=== PATIENT | female | born 1965 | race American Indian/Alaskan Native ===

== ENCOUNTER 2021-06-21 13:17 | Inpatient (IN) | payer SELFPAY ==
[2021-06-21] MEDS ORDERED: SODIUM CHLORIDE 0.9% 1000 ML 1,000 ML IV ONE (13:32)
--- NOTE | 2021-06-21 13:36 | Emergency Department Report ---
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 According to the EMS report patient was last time seen normal on Monday, 2 days ago. EMS stated that patient was found unresponsive with urinary and fecal incontinence. Upon arrival to the ER patient is obtunded and only responding to painful stimuli. Patient is maintaining her oxygen saturation to 100% on room air. Unable to obtain more information at this moment. MD Complaint: altered mental status, confusion, decreased responsiveness, weakness -: unknown Severity: severe Context: unknown Treatments Prior to Arrival: IV fluid - Related Data Home Medications Medication Instructions Recorded Confirmed Last Taken Aspirin [Vazalore] 06/21/21 Unknown Clopidogrel [Plavix] 06/21/21 Unknown Losartan 06/21/21 Unknown Metoprolol [Lopressor TAB] 06/21/21 Unknown Allergies Allergy/AdvReac Type Severity Reaction Status Date / Time No Known Allergies Allergy Unverified 06/21/21 13:19 ED Review of Systems ROS: Stated complaint: altered Mental status Other details as noted in HPI Comment: Unobtainable due to pts medical conditions ED Past Medical Hx - Past Medical History Previous Medical History?: Yes Hx Hypertension: Yes - Medications Home Medications: Home Medications Medication Instructions Recorded Confirmed Last Taken Type Aspirin [Vazalore] 06/21/21 Unknown History Clopidogrel [Plavix] 06/21/21 Unknown History Losartan 06/21/21 Unknown History Metoprolol [Lopressor TAB] 06/21/21 Unknown History ED Physical Exam - General Limitations: Altered Mental Status General appearance: obtunded - Head Head exam: Present: atraumatic, normocephalic, normal inspection - Eye Eye exam: Present: normal appearance - ENT ENT exam: Present: mucous membranes dry - Neck Neck exam: Present: normal inspection - Respiratory Respiratory exam: Present: normal lung sounds bilaterally - Cardiovascular Cardiovascular Exam: Present: bradycardia - GI/Abdominal GI/Abdominal exam: Present: soft. Absent: tenderness, guarding, pulsatile mass - Extremities Exam Extremities exam: Present: normal inspection - Neurological Exam Neurological exam: Present: altered - Psychiatric Psychiatric exam: Present: flat affect - Skin Skin exam: Present: warm, intact, normal color - Assessment Assessment Interval: Baseline - Level of Consciousness 1a. Level of Consciousness: resp stimuli/obtunded - LOC Questions 1b. LOC Questions: answers no questions correctly - LOC Command 1c. LOC Commands: performs no tasks correctly - Best Gaze 2. Best Gaze: normal - Visual 3. Visual: no visual loss - Facial Palsy 4. Facial Palsy: normal symmetrical movement - Motor Arm 5a. Motor Arm Left: drift 5b. Motor Arm Right: drift - Motor Leg 6a. Motor Leg Left: drift 6b. Motor Leg Right: drift - Limb Ataxia 7. Limb Ataxia: absent - Sensory 8. Sensory: coma/unresponsive - Best Language 9. Best Language: coma/unresponsive - Dysarthria 10. Dysarthria: mute/anarrthric - Extinction and Inattention 11. Extinction/Inattention: no abnormality - Scoring Total Score: 17 Stroke Severity: Moderate to Severe Stroke ED Course Vital Signs 06/21/21 06/21/21 06/21/21 13:18 13:19 13:39 Pulse Rate 64 Respiratory 18 12 Rate Blood Pressure Blood Pressure 201/87 [Left] O2 Sat by Pulse 97 99 Oximetry 06/21/21 06/21/21 06/21/21 13:45 14:41 14:45 Pulse Rate 47 L Respiratory 16 11 L 17 Rate Blood Pressure 110/86 110/86 110/86 Blood Pressure [Left] O2 Sat by Pulse 85 Oximetry 06/21/21 06/21/21 06/21/21 15:01 15:15 15:31 Pulse Rate 49 L 59 L Respiratory 13 10 L 20 Rate Blood Pressure 144/90 144/90 188/91 Blood Pressure [Left] O2 Sat by Pulse 98 97 78 L Oximetry 06/21/21 06/21/21 15:45 16:01 Pulse Rate Respiratory 19 12 Rate Blood Pressure 188/91 204/157 Blood Pressure [Left] O2 Sat by Pulse 89 Oximetry - Lab Data Result diagrams: 06/21/21 14:45 06/21/21 14:45 Lab Results 06/21/21 06/21/21 06/21/21 Range/Units 14:45 14:45 14:45 WBC 11.2 H (4.5-11.0) K/mm3 RBC 4.65 (3.65-5.03) M/mm3 Hgb 14.4 H (10.1-14.3) gm/dl Hct 44.3 H (30.3-42.9) % MCV 95 (79-97) fl MCH 31 (28-32) pg MCHC 32 (30-34) % RDW 13.8 (13.2-15.2) % Plt Count 342 (140-440) K/mm3 Lymph % (Auto) 23.5 (13.4-35.0) % Coos % (Auto) 6.8 (0.0-7.3) % Eos % (Auto) 0.4 (0.0-4.3) % Baso % (Auto) 0.7 (0.0-1.8) % Lymph # (Auto) 2.6 (1.2-5.4) K/mm3 Coos # (Auto) 0.8 (0.0-0.8) K/mm3 Eos # (Auto) 0.0 (0.0-0.4) K/mm3 Baso # (Auto) 0.1 (0.0-0.1) K/mm3 Seg Neutrophils % 68.6 (40.0-70.0) % Seg Neutrophils # 7.7 (1.8-7.7) K/mm3 PT 12.7 (12.2-14.9) Sec. INR 0.86 L (0.87-1.13) APTT 24.1 L (24.2-36.6) Sec. Sodium (137-145) mmol/L Potassium (3.6-5.0) mmol/L Chloride (98-107) mmol/L Carbon Dioxide (22-30) mmol/L Anion Gap mmol/L BUN (7-17) mg/dL Creatinine (0.6-1.2) mg/dL Estimated GFR ml/min BUN/Creatinine Ratio % Glucose (65-100) mg/dL Lactic Acid (0.7-2.0) mmol/L Calcium (8.4-10.2) mg/dL Total Bilirubin (0.1-1.2) mg/dL Direct Bilirubin (0-0.2) mg/dL Indirect Bilirubin mg/dL AST (5-40) units/L ALT (7-56) units/L Alkaline Phosphatase (35-129) units/L Ammonia (25-60) umol/L Total Creatine Kinase (30-135) units/L Troponin T TNR Total Protein (6.3-8.2) g/dL Albumin (3.9-5) g/dL Albumin/Globulin Ratio % Triglycerides (2-149) mg/dL Cholesterol (50-199) mg/dL LDL Cholesterol Direct (50-130) mg/dL HDL Cholesterol (40-59) mg/dL Cholesterol/HDL Ratio % TSH (0.270-4.200) mlU/mL Salicylates (2.8-20.0) mg/dL Acetaminophen (10.0-30.0) ug/mL Plasma/Serum Alcohol (0-0.07) % 06/21/21 06/21/21 06/21/21 Range/Units 14:45 14:45 14:45 WBC (4.5-11.0) K/mm3 RBC (3.65-5.03) M/mm3 Hgb (10.1-14.3) gm/dl Hct (30.3-42.9) % MCV (79-97) fl MCH (28-32) pg MCHC (30-34) % RDW (13.2-15.2) % Plt Count (140-440) K/mm3 Lymph % (Auto) (13.4-35.0) % Coos % (Auto) (0.0-7.3) % Eos % (Auto) (0.0-4.3) % Baso % (Auto) (0.0-1.8) % Lymph # (Auto) (1.2-5.4) K/mm3 Coos # (Auto) (0.0-0.8) K/mm3 Eos # (Auto) (0.0-0.4) K/mm3 Baso # (Auto) (0.0-0.1) K/mm3 Seg Neutrophils % (40.0-70.0) % Seg Neutrophils # (1.8-7.7) K/mm3 PT (12.2-14.9) Sec. INR (0.87-1.13) APTT (24.2-36.6) Sec. Sodium 138 (137-145) mmol/L Potassium 3.8 (3.6-5.0) mmol/L Chloride 99.5 (98-107) mmol/L Carbon Dioxide 24 (22-30) mmol/L Anion Gap 18 mmol/L BUN 12 (7-17) mg/dL Creatinine 0.8 (0.6-1.2) mg/dL Estimated GFR > 60 ml/min BUN/Creatinine Ratio 15 % Glucose 203 H (65-100) mg/dL Lactic Acid < 0.20 L (0.7-2.0) mmol/L Calcium 9.2 (8.4-10.2) mg/dL Total Bilirubin 0.50 (0.1-1.2) mg/dL Direct Bilirubin < 0.2 (0-0.2) mg/dL Indirect Bilirubin 0.3 mg/dL AST 21 (5-40) units/L ALT 20 (7-56) units/L Alkaline Phosphatase 135 H (35-129) units/L Ammonia 19.0 L (25-60) umol/L Total Creatine Kinase 173 H (30-135) units/L Troponin T 0.311 H* Total Protein 7.6 (6.3-8.2) g/dL Albumin 4.1 (3.9-5) g/dL Albumin/Globulin Ratio 1.2 % Triglycerides 95 (2-149) mg/dL Cholesterol 286 H (50-199) mg/dL LDL Cholesterol Direct 178 H (50-130) mg/dL HDL Cholesterol 83 H (40-59) mg/dL Cholesterol/HDL Ratio 3.44 % TSH (0.270-4.200) mlU/mL Salicylates (2.8-20.0) mg/dL Acetaminophen (10.0-30.0) ug/mL Plasma/Serum Alcohol (0-0.07) % 06/21/21 06/21/21 06/21/21 Range/Units 14:45 14:45 14:45 WBC (4.5-11.0) K/mm3 RBC (3.65-5.03) M/mm3 Hgb (10.1-14.3) gm/dl Hct (30.3-42.9) % MCV (79-97) fl MCH (28-32) pg MCHC (30-34) % RDW (13.2-15.2) % Plt Count (140-440) K/mm3 Lymph % (Auto) (13.4-35.0) % Coos % (Auto) (0.0-7.3) % Eos % (Auto) (0.0-4.3) % Baso % (Auto) (0.0-1.8) % Lymph # (Auto) (1.2-5.4) K/mm3 Coos # (Auto) (0.0-0.8) K/mm3 Eos # (Auto) (0.0-0.4) K/mm3 Baso # (Auto) (0.0-0.1) K/mm3 Seg Neutrophils % (40.0-70.0) % Seg Neutrophils # (1.8-7.7) K/mm3 PT (12.2-14.9) Sec. INR (0.87-1.13) APTT (24.2-36.6) Sec. Sodium (137-145) mmol/L Potassium (3.6-5.0) mmol/L Chloride (98-107) mmol/L Carbon Dioxide (22-30) mmol/L Anion Gap mmol/L BUN (7-17) mg/dL Creatinine (0.6-1.2) mg/dL Estimated GFR ml/min BUN/Creatinine Ratio % Glucose (65-100) mg/dL Lactic Acid (0.7-2.0) mmol/L Calcium (8.4-10.2) mg/dL Total Bilirubin (0.1-1.2) mg/dL Direct Bilirubin (0-0.2) mg/dL Indirect Bilirubin mg/dL AST (5-40) units/L ALT (7-56) units/L Alkaline Phosphatase (35-129) units/L Ammonia (25-60) umol/L Total Creatine Kinase (30-135) units/L Troponin T Total Protein (6.3-8.2) g/dL Albumin (3.9-5) g/dL Albumin/Globulin Ratio % Triglycerides (2-149) mg/dL Cholesterol (50-199) mg/dL LDL Cholesterol Direct (50-130) mg/dL HDL Cholesterol (40-59) mg/dL Cholesterol/HDL Ratio % TSH 0.326 (0.270-4.200) mlU/mL Salicylates < 0.3 L (2.8-20.0) mg/dL Acetaminophen 5.0 L (10.0-30.0) ug/mL Plasma/Serum Alcohol (0-0.07) % 06/21/21 Range/Units 14:45 WBC (4.5-11.0) K/mm3 RBC (3.65-5.03) M/mm3 Hgb (10.1-14.3) gm/dl Hct (30.3-42.9) % MCV (79-97) fl MCH (28-32) pg MCHC (30-34) % RDW (13.2-15.2) % Plt Count (140-440) K/mm3 Lymph % (Auto) (13.4-35.0) % Coos % (Auto) (0.0-7.3) % Eos % (Auto) (0.0-4.3) % Baso % (Auto) (0.0-1.8) % Lymph # (Auto) (1.2-5.4) K/mm3 Coos # (Auto) (0.0-0.8) K/mm3 Eos # (Auto) (0.0-0.4) K/mm3 Baso # (Auto) (0.0-0.1) K/mm3 Seg Neutrophils % (40.0-70.0) % Seg Neutrophils # (1.8-7.7) K/mm3 PT (12.2-14.9) Sec. INR (0.87-1.13) APTT (24.2-36.6) Sec. Sodium (137-145) mmol/L Potassium (3.6-5.0) mmol/L Chloride (98-107) mmol/L Carbon Dioxide (22-30) mmol/L Anion Gap mmol/L BUN (7-17) mg/dL Creatinine (0.6-1.2) mg/dL Estimated GFR ml/min BUN/Creatinine Ratio % Glucose (65-100) mg/dL Lactic Acid (0.7-2.0) mmol/L Calcium (8.4-10.2) mg/dL Total Bilirubin (0.1-1.2) mg/dL Direct Bilirubin (0-0.2) mg/dL Indirect Bilirubin mg/dL AST (5-40) units/L ALT (7-56) units/L Alkaline Phosphatase (35-129) units/L Ammonia (25-60) umol/L Total Creatine Kinase (30-135) units/L Troponin T Total Protein (6.3-8.2) g/dL Albumin (3.9-5) g/dL Albumin/Globulin Ratio % Triglycerides (2-149) mg/dL Cholesterol (50-199) mg/dL LDL Cholesterol Direct (50-130) mg/dL HDL Cholesterol (40-59) mg/dL Cholesterol/HDL Ratio % TSH (0.270-4.200) mlU/mL Salicylates (2.8-20.0) mg/dL Acetaminophen (10.0-30.0) ug/mL Plasma/Serum Alcohol < 0.01 (0-0.07) % - Radiology Data Radiology results: report reviewed CT head/brain wo con INDICATION: Altered Mental Status. TECHNIQUE: All CT scans at this location are performed using CT dose reduction for ALARA by means of automated exposure control. COMPARISON: None available. FINDINGS: There is abnormal hypoattenuation and the region of the medial thalamus bilaterally. Remaining brain parenchymal appearance appears grossly normal. There is no hydrocephalus or hemorrhage. There is mild mucosal thickening in the left maxillary sinus. IMPRESSION: 1. Bilateral anteromedial thalamus hypoattenuation. Differential considerations for this appearance would include bilateral thalamic infarcts, Wernicke's encephalopathy, osmotic myelinolysis, and bilateral thalamic glioma. Further evaluation with MRI of the brain without and with contrast recommended. 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 According to the EMS report patient was last time seen normal on Monday, 2 days ago. EMS stated that patient was found unresponsive with urinary and fecal incontinence. Upon arrival to the ER patient is obtunded and only responding to painful stimuli. Patient is maintaining her oxygen saturation to 100% on room air. Unable to obtain more information at this moment. CT brain showed bilateral thalamic infarct. Labs reviewed and is unremarkable. I discussed the patient with Dr. Bridges, he agreed to admit the patient to medical service for further management. Critical Care Time: Yes Critical care time in (mins) excluding proc time.: 35 Critical care attestation.: If time is entered above; I have spent that time in minutes in the direct care of this critically ill patient, excluding procedure time. ED Disposition Clinical Impression: CVA (cerebral vascular accident) Disposition: 09 ADMITTED INPATIENT Is pt being admited?: Yes Condition: Serious Referrals: PRIMARY CARE,MD [Primary Care Provider] - 3-5 Days
[2021-06-21 15:04] LABS: Basophils # (Auto) 0.1 K/mm3 (0.0-0.1); Basophils % (Auto) 0.7 % (0.0-1.8); Eosinophils % (Auto) 0.4 % (0.0-4.3); Hematocrit 44.3 % (30.3-42.9); Hemoglobin 14.4 gm/dl (10.1-14.3); Lymphocytes # (Auto) 2.6 K/mm3 (1.2-5.4); Lymphocytes % (Auto) 23.5 % (13.4-35.0); Mean Corpuscular HGB Conc 32 % (30-34); Mean Corpuscular Volume 95 fl (79-97); Monocytes # (Auto) 0.8 K/mm3 (0.0-0.8); Monocytes % (Auto) 6.8 % (0.0-7.3); Platelet Count 342 K/mm3 (140-440); Red Blood Count 4.65 M/mm3 (3.65-5.03); Red Cell Distribution Width 13.8 % (13.2-15.2)
[2021-06-21 15:14] LABS: INR 0.86 (0.87-1.13); Partial Thromboplastin Time 24.1 Sec. (24.2-36.6)
[2021-06-21 15:24] LABS: Alanine Aminotransferase 20 units/L (7-56); Albumin 4.1 g/dL (3.9-5); BUN/Creatinine Ratio 15; Blood Urea Nitrogen 12 mg/dL (7-17); Calcium 9.2 mg/dL (8.4-10.2); Hemolysis Index 6
[2021-06-21 15:33] LABS: Bilirubin,Direct < 0.2 mg/dL (0-0.2)
[2021-06-21 16:03] LABS: Chol/HDL Ratio 3.44 %; HDL Cholesterol 83 mg/dL (40-59); LDL Cholesterol,Direct 178 mg/dL (50-130)
--- NOTE | 2021-06-21 16:32 | History and Physical Report ---
History of Present Illness Chief complaint: confused History of present illness: 55 YO Female with Obesity, HTN presents to ED for evaluation. Patient is confused with diminished cognition at the time my evaluation is unable to provide history. Patient history taken from EMS staff, ED staff. EMS was summoned to a truck park when the patient was found in her vehicle unresponsive. 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 The patient was found by staff at the truck park unresponsive and covered in fecal material. The patient was found to have a neurologic deficit. A code stroke was called and the patient was transported to [facility] for further care and evaluation of the aforementioned symptoms. The patient was seen and evaluated in the emergency department. All lab and imaging studies reviewed. The patient last known well time was on Monday by her dispatcher. Patient was found to have a neurologic deficit. Patient admitted to medical floor and initiated on CVA protocol. Patient also found to have evidence of NSTEMI. Patient initiated on therapeutic anticoagulation and initiated on ACS protocol. No further history is obtainable. Patient is confused with diminished cognition at the time my ev aluation but has a positive gag reflex and is able to protect her airway without difficulty. No prior mission for review. All medication listed at time of admission has been reconciled. Advanced care planning conducted in ED. Case management consulted for assistance with discharge planning. Past History Past Medical History: hypertension, other (See HPI) Past Surgical History: No surgical history, Other (Unable to obtain) Social history: no significant social history, single, other (Unable to obtain) Family history: no significant family history, other (Unable to obtain) Medications and Allergies Allergies Allergy/AdvReac Type Severity Reaction Status Date / Time No Known Allergies Allergy Unverified 06/21/21 13:19 Home Medications Medication Instructions Recorded Confirmed Last Taken Type Aspirin [Vazalore] 06/21/21 Unknown History Clopidogrel [Plavix] 06/21/21 Unknown History Losartan 06/21/21 Unknown History Metoprolol [Lopressor TAB] 06/21/21 Unknown History Active Meds: Active Medications Sodium Chloride (Nacl 0.9% 1000 Ml) 1,000 mls @ 125 mls/hr IV ONCE ONE Stop: 06/21/21 21:31 Last Admin: 06/21/21 14:58 Dose: 125 mls/hr Review of Systems ROS unobtainable: due to mental status Exam - Constitutional Vitals: Temp Pulse Resp BP Pulse Ox 59 L 12 204/157 89 06/21/21 15:15 06/21/21 16:01 06/21/21 16:01 06/21/21 15:45 General appearance: Present: mild distress, obese - EENT Eyes: Present: PERRL ENT: clear oral mucosa, hearing decreased - Neck Neck: Present: supple, normal ROM - Respiratory Respiratory effort: normal Respiratory: bilateral: CTA - Cardiovascular Heart Sounds: Present: S1 & S2. Absent: rub, click - Extremities Extremities: pulses symmetrical, No edema Peripheral Pulses: within normal limits - Abdominal General gastrointestinal: Present: soft, non-tender, non-distended, normal bowel sounds Female genitourinary: Present: normal - Integumentary Integumentary: Present: clear, warm, dry - Musculoskeletal Musculoskeletal: generalized weakness - Psychiatric Psychiatric: no appropriate mood/affect, no intact judgment & insight, no memory intact - Neurologic Neurologic: CNII-XII intact, no focal deficits, moves all extremities, no gait normal HEART Score - HEART Score Troponin: Troponin T 0.311 ng/mL (0.00-0.029) H* 06/21/21 14:45 Troponin T TNR 06/21/21 14:45 Results - Labs CBC & Chem 7: 06/21/21 14:45 06/21/21 14:45 Labs: Abnormal lab results 06/21/21 06/21/21 06/21/21 Range/Units 14:45 14:45 14:45 WBC 11.2 H (4.5-11.0) K/mm3 Hgb 14.4 H (10.1-14.3) gm/dl Hct 44.3 H (30.3-42.9) % INR 0.86 L (0.87-1.13) APTT 24.1 L (24.2-36.6) Sec. Glucose 203 H (65-100) mg/dL Lactic Acid (0.7-2.0) mmol/L Alkaline Phosphatase 135 H (35-129) units/L Ammonia (25-60) umol/L Total Creatine Kinase 173 H (30-135) units/L Troponin T 0.311 H* (0.00-0.029) ng/mL Cholesterol 286 H (50-199) mg/dL LDL Cholesterol Direct 178 H (50-130) mg/dL HDL Cholesterol 83 H (40-59) mg/dL Salicylates (2.8-20.0) mg/dL Acetaminophen (10.0-30.0) ug/mL 06/21/21 06/21/21 06/21/21 Range/Units 14:45 14:45 14:45 WBC (4.5-11.0) K/mm3 Hgb (10.1-14.3) gm/dl Hct (30.3-42.9) % INR (0.87-1.13) APTT (24.2-36.6) Sec. Glucose (65-100) mg/dL Lactic Acid < 0.20 L (0.7-2.0) mmol/L Alkaline Phosphatase (35-129) units/L Ammonia 19.0 L (25-60) umol/L Total Creatine Kinase (30-135) units/L Troponin T (0.00-0.029) ng/mL Cholesterol (50-199) mg/dL LDL Cholesterol Direct (50-130) mg/dL HDL Cholesterol (40-59) mg/dL Salicylates < 0.3 L (2.8-20.0) mg/dL Acetaminophen (10.0-30.0) ug/mL 06/21/21 Range/Units 14:45 WBC (4.5-11.0) K/mm3 Hgb (10.1-14.3) gm/dl Hct (30.3-42.9) % INR (0.87-1.13) APTT (24.2-36.6) Sec. Glucose (65-100) mg/dL Lactic Acid (0.7-2.0) mmol/L Alkaline Phosphatase (35-129) units/L Ammonia (25-60) umol/L Total Creatine Kinase (30-135) units/L Troponin T (0.00-0.029) ng/mL Cholesterol (50-199) mg/dL LDL Cholesterol Direct (50-130) mg/dL HDL Cholesterol (40-59) mg/dL Salicylates (2.8-20.0) mg/dL Acetaminophen 5.0 L (10.0-30.0) ug/mL Assessment and Plan - Patient Problems (1) CVA (cerebral vascular accident) Current Visit: Yes Status: Acute Plan to address problem: CVA Protocol: CT scan head, neuro check, seizure precaution, aspiration precaution, antiplatelet therapy, carotid Doppler, echocardiogram, patient outside therapeutic window for TPA. (2) NSTEMI (non-ST elevated myocardial infarction) Current Visit: Yes Status: Acute Plan to address problem: Chest pain protocol: Serial cardiac enzymes, EKG, telemetry monitoring, therapeutic anticoagulation, echocardiogram, D-dimer (3) Obesity (BMI 30.0-34.9) Current Visit: Yes Status: Acute Plan to address problem: Balanced diet, increase physical activity at discharge. (4) Acute encephalopathy Current Visit: Yes Status: Acute Plan to address problem: Supportive care, CT scan head, neuro check, seizure precautions, aspiration precautions (5) DVT prophylaxis Current Visit: Yes Status: Acute Plan to address problem: SCD to bilateral lower extremities while in bed, continue therapeutic anticoagulation (6) Advance care planning Current Visit: Yes Status: Acute Plan to address problem: Disease education conducted, care plan discussed, diagnoses discussed, prognosis discussed, +30 minutes.
[2021-06-21] MEDS ORDERED: oxyCODONE /ACETAMINOPHEN 5-325MG TAB PO PRN (17:39)
[2021-06-21] MEDS ORDERED: ACETAMINOPHEN 325 MG TAB PO PRN ×2 (17:39)
[2021-06-21] MEDS ORDERED: traMADol 50 MG TAB PO PRN (17:39)
[2021-06-21] MEDS ORDERED: MAGNESIUM HYDROXIDE (MOM) ORAL LIQD UDC PO PRN (17:39)
[2021-06-21] MEDS ORDERED: METOCLOPRAMIDE 10 MG TAB PO PRN (17:39)
[2021-06-21] MEDS ORDERED: PROMETHAZINE 25 MG RECT SUPP PR PRN (17:39)
[2021-06-21] MEDS ORDERED: ONDANSETRON 4 MG/2 ML INJ IV PRN (17:39)
[2021-06-21] MEDS ORDERED: HYDROmorphone 1 MG/1 ML INJ IV PRN (17:39)
[2021-06-21] MEDS ORDERED: NITROGLYCERIN 0.4 MG TAB SUBL SL PRN (17:39)
[2021-06-21 18:02] LABS: Amphetamine Screen,Urine Negative; Benzodiazepines Screen,Urine Negative; Cannabinoid Screen,Urine Negative; Cocaine Screen,Urine Negative; Methadone Screen,Urine Negative; Opiate Screen,Urine Negative
[2021-06-21 19:02] LABS: WBC,Urine < 1.0 /HPF (0.0-6.0)
[2021-06-21 19:06] LABS: Bilirubin,Urine Negative (Negative); Blood,Urine Small (Negative); Color,Urine Yellow (Yellow)
[2021-06-21 19:07] LABS: Protein,Urine <15 mg/dL mg/dL (Negative)
[2021-06-21 19:19] LABS: RBC,Urine < 1.0 /HPF (0.0-6.0)
--- NOTE | 2021-06-21 23:53 | Cat Scan Report ---
CT head/brain wo con INDICATION: Altered Mental Status. TECHNIQUE: All CT scans at this location are performed using CT dose reduction for ALARA by means of automated e xposure control. COMPARISON: None available. FINDINGS: There is abnormal hypoattenuation and the region of the medial thalamus bilaterally. Remaining brain parenchymal appearance appears grossly normal. There is no hydrocephalus or hemorrhage. There is mild mucosal thickening in the left maxillary sinus. IMPRESSION: 1. Bilateral anteromedial thalamus hypoattenuation. Differential considerations for this appearance w ould include bilateral thalamic infarcts, Wernicke's encephalopathy, osmotic myelinolysis, and bilate ral thalamic glioma. Further evaluation with MRI of the brain without and with contrast recommended. Signer Name: Stephen Allred MD Signed: 06/21/2021 2:32 PM Workstation Name: [id number]
--- NOTE | 2021-06-21 23:53 | XRay Report ---
CHEST 1 VIEW 06/21/2021 1:34 PM INDICATION / CLINICAL INFORMATION: Altered Mental Status. COMPARISON: None available. FINDINGS: SUPPORT DEVICES: None. HEART / MEDIASTINUM: No significant abnormality. LUNGS / PLEURA: No significant pulmonary or pleural abnormality. No pneumothorax. ADDITIONAL FINDINGS: No significant additional findings. IMPRESSION: 1. No acute findings. Signer Name: Stephen Allred MD Signed: 06/21/2021 2:03 PM Workstation Name: [id number]
[2021-06-22] MEDS: ENOXAPARIN 80 MG/0.8 ML INJ SUB-Q SCH ×3 (00:15→23:00)
[2021-06-22] MEDS: ASPIRIN 325 MG TAB PO SCH (10:15)
--- NOTE | 2021-06-22 10:49 | Consultation ---
History of Present Illness Consult date: 06/22/21 Reason for Consult: Confusion History of present illness: confused History of present illness: 55 YO Female with Obesity, HTN presents to ED for evaluation. Patient is confused with diminished cognition at the time my evaluation is unable to provide history. Patient history taken from EMS staff, ED staff. EMS was summoned to a truck park when the patient was found in her vehicle unresponsive. 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 The patient was found by staff at the truck park unresponsive and covered in fecal material. The patient was found to have a neurologic deficit. A code stroke was called and the patient was transported to [facility] for further care and evaluation of the aforementioned symptoms. The patient was seen and evaluated in the emergency department. All lab and imaging studies reviewed. The patient last known well time was on Monday by her dispatcher. Patient was found to have a neurologic deficit. Patient admitted to medical floor and initiated on CVA protocol. Patient also found to have evidence of NSTEMI. Patient initiated on therapeutic anticoagulation and initiated on ACS protocol. No further history is obtainable. Patient is confused with diminished cognition at the time my evaluation but has a positive gag reflex and is able to protect her airway without difficulty. No prior mission for review. All medication listed at time of admission has been reconciled. Advanced care planning conducted in ED. Case management consulted for assistance with discharge planning. neurology consulted for evaluation of status she had CT brain is remarkable for bilateral thalamic hypo attenuation ,R/O wernickie encephalopathy vs CVA ? Hypoxemia Past History Past Medical History: hypertension, other (See HPI) Past Surgical History: No surgical history, Other (Unable to obtain) Social history: no significant social history, single, other (Unable to obtain) Family history: no significant family history, other (Unable to obtain) Medications and Allergies Allergies Allergy/AdvReac Type Severity Reaction Status Date / Time No Known Allergies Allergy Unverified 06/21/21 13:19 Home Medications Medication Instructions Recorded Confirmed Last Taken Type Aspirin [Vazalore] 06/21/21 Unknown History Clopidogrel [Plavix] 06/21/21 Unknown History Losartan 06/21/21 Unknown History Metoprolol [Lopressor TAB] 06/21/21 Unknown History Active Meds: Active Medications Sodium Chloride (Nacl 0.9% 1000 Ml) 1,000 mls @ 125 mls/hr IV ONCE ONE Stop: 06/21/21 21:31 Last Admin: 06/21/21 14:58 Dose: 125 mls/hr Review of Systems ROS unobtainable: due to mental status Past History Past Medical History: hypertension, other (See HPI) Past Surgical History: No surgical history, Other (Unable to obtain) Social history: no significant social history, single, other (Unable to obtain) Family history: no significant family history, other (Unable to obtain) Medications and Allergies Allergies Allergy/AdvReac Type Severity Reaction Status Date / Time No Known Allergies Allergy Unverified 06/21/21 13:19 Home Medications Medication Instructions Recorded Confirmed Last Taken Type Aspirin [Vazalore] 06/21/21 Unknown History Clopidogrel [Plavix] 06/21/21 Unknown History Losartan 06/21/21 Unknown History Metoprolol [Lopressor TAB] 06/21/21 Unknown History Active Meds: Active Medications Acetaminophen (Acetaminophen 325 Mg Tab) 650 mg PO Q6H PRN PRN Reason: Pain, Mild (1-3) Aspirin (Aspirin 325 Mg Tab) 325 mg PO QDAY [facility] Atorvastatin Calcium (Atorvastatin 40 Mg Tab) 40 mg PO QHS [facility] Last Admin: 06/22/21 00:17 Dose: Not Given Bisacodyl (Bisacodyl 10 Mg Rect Supp) 10 mg DE QDAY PRN PRN Reason: Constipation Enoxaparin Sodium (Enoxaparin 80 Mg/0.8 Ml Inj) 80 mg SUB-Q BID [facility]; Protocol Last Admin: 06/22/21 10:15 Dose: 80 mg Hydromorphone HCl (Hydromorphone 1 Mg/1 Ml Inj) 0.5 mg IV Q23H PRN PRN Reason: Pain , Severe (7-10) Magnesium Hydroxide (Magnesium Hydroxide (Mom) Oral Liqd Udc) 30 ml PO Q4H PRN PRN Reason: Constipation Metoclopramide HCl (Metoclopramide 10 Mg Tab) 10 mg PO Q6H PRN PRN Reason: Nausea And Vomiting Nitroglycerin (Nitroglycerin 0.4 Mg Tab Subl) 0.4 mg SL Q5M PRN PRN Reason: Chest Pain Ondansetron HCl (Ondansetron 4 Mg/2 Ml Inj) 4 mg IV Q8H PRN PRN Reason: Nausea And Vomiting Oxycodone/Acetaminophen (Oxycodone /Acetaminophen 5-325mg Tab) 1 tab PO Q16H PRN PRN Reason: Pain, Moderate (4-6) Promethazine HCl (Promethazine 25 Mg Rect Supp) 25 mg DE Q6H PRN PRN Reason: Nausea And Vomiting Sodium Chloride (Sodium Chloride 0.9% 10 Ml Flush Syringe) 10 ml IV PRN PRN PRN Reason: LINE FLUSH Sodium Chloride (Sodium Chloride 0.9% 10 Ml Flush Syringe) 10 ml IV PRN PRN PRN Reason: LINE FLUSH Tramadol HCl (Tramadol 50 Mg Tab) 50 mg PO Q6H PRN PRN Reason: Pain, Moderate (4-6) Physical Examination - Vital Signs Vital Signs: Vital Signs Pulse Ox 97 06/21/21 13:18 - Constitutional General appearance: comfortable - EENT EENT: Present: PERRL, mucous membranes moist - Respiratory Respiratory: Present: chest non-tender, lungs clear, rhonchi - Cardiovascular Cardiovascular: Present: regular rate, normal S1, normal S2 Extremities: Present: no peripheral edema bilatateraly, no clubbing, cyanosis - Gastrointestinal Gastrointestinal: Present: normoactive bowel sounds - Integumentary Integumentary: Present: normal - Neurologic Cranial nerve examination: PERRL, EOMI, facial droop (slight bilteral facial diplegia) Speech examination: other (speech is slurred) Detailed motor examination: other (move all limbs no sign of focal weakness , reflexes are 1+. gait unable to do.) - Level of Consciousness 1a. Level of Consciousness: resp stimuli/obtunded - LOC Questions 1b. LOC Questions: answers 1 question correctly - LOC Command 1c. LOC Commands: performs 1 task correctly - Best Gaze 2. Best Gaze: normal - Visual 3. Visual: no visual loss - Facial Palsy 4. Facial Palsy: minor paralysis - Motor Arm 5a. Motor Arm Left: no drift 5b. Motor Arm Right: no drift - Motor Leg 6a. Motor Leg Left: no drift 6b. Motor Leg Right: no drift - Limb Ataxia 7. Limb Ataxia: absent - Sensory 8. Sensory: normal - Best Language 9. Best Language: no aphasia - Dysarthria 10. Dysarthria: normal - Extinction and Inattention 11. Extinction/Inattention: no abnormality - Scoring Total Score: 5 Stroke Severity: Moderate Stroke Results - Laboratory Findings CBC and BMP: 06/21/21 14:45 02/14/22 14:45 Abnormal Lab Findings: Abnormal Labs 06/21/21 06/21/21 06/21/21 14:45 14:45 14:45 WBC 11.2 H Hgb 14.4 H Hct 44.3 H INR 0.86 L APTT 24.1 L D-Dimer Glucose 203 H Lactic Acid Alkaline Phosphatase 135 H Ammonia Total Creatine Kinase 173 H Troponin T 0.311 H* Cholesterol 286 H LDL Cholesterol Direct 178 H HDL Cholesterol 83 H Urine Blood Salicylates Acetaminophen 06/21/21 06/21/21 06/21/21 14:45 14:45 14:45 WBC Hgb Hct INR APTT D-Dimer Glucose Lactic Acid < 0.20 L Alkaline Phosphatase Ammonia 19.0 L Total Creatine Kinase Troponin T Cholesterol LDL Cholesterol Direct HDL Cholesterol Urine Blood Salicylates < 0.3 L Acetaminophen 06/21/21 06/21/21 06/21/21 14:45 14:45 17:44 WBC Hgb Hct INR APTT D-Dimer 815.68 H Glucose Lactic Acid Alkaline Phosphatase Ammonia Total Creatine Kinase Troponin T Cholesterol LDL Cholesterol Direct HDL Cholesterol Urine Blood Small A Salicylates Acetaminophen 5.0 L 06/21/21 23:16 WBC Hgb Hct INR APTT D-Dimer Glucose Lactic Acid Alkaline Phosphatase Ammonia Total Creatine Kinase Troponin T 0.395 H* D Cholesterol LDL Cholesterol Direct HDL Cholesterol Urine Blood Salicylates Acetaminophen Assessment and Plan Assessment and Plan 55 YO Female with Obesity, HTN presents to ED for evaluation. Patient is confused with diminished cognition at the time my evaluation is unable to provide history. Patient history taken from EMS staff, ED staff. EMS was summoned to a truck park when the patient was found in her vehicle unresponsive. 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 The patient was found by staff at the truck park unresponsive and covered in fecal material. - Patient Problems # Acute/Subacute encephalopathy -pt. is found in her truck unresponsive with fecal and urinary incontince -she is obtunded , and is able to move all limbs -Seizure can not be excluded -drug screen is unremarkable -CT brain is remarkable for bilateral Hypo attenuation at thalami? -started on ASA and Lipitor -MRI brain is pending -Start on Thiamine IV - EEG today -Seizure precaution # NSTEMI (non-ST elevated myocardial infarction) - elevated cardiac enzymes -Chest pain protocol: Serial cardiac enzymes, EKG, telemetry monitoring, therapeutic anticoagulation, echocardiogram, D-dimer # DVT prophylaxis -SCD to bilateral lower extremities while in bed, continue therapeutic anticoagulation will follow
--- NOTE | 2021-06-22 13:13 | Vascular Lab Report ---
DUPLEX DOPPLER ULTRASOUND CAROTID, BILATERAL INDICATION / CLINICAL INFORMATION: stroke. COMPARISON: None available. FINDINGS: RIGHT CAROTID: - PLAQUE ESTIMATE (%): < 50% - CCA velocity: 80 cm/sec. - ICA peak systolic velocity: 99 cm/sec. - ICA/CCA PSV Ratio: 1.2 Right Vertebral Artery: Antegrade flow. LEFT CAROTID: - PLAQUE ESTIMATE (%): < 50% - CCA velocity: 64 cm/sec. - ICA peak systolic velocity: 70 cm/sec. - ICA/CCA PSV Ratio: 1.1 Left Vertebral Artery: Antegrade flow. IMPRESSION: 1. Right Internal Carotid Artery: Less than 50% diameter stenosis. 2. Left Internal Carotid Artery: Less than 50% diameter stenosis. Velocity criteria are extrapolated from diameter data as defined by the Society of Radiologists in Ul trasound Consensus Conference, Radiology 2003; 229;340-346. NO STENOSIS (NORMAL) - Plaque = none; ICA PSV < 125 cm/sec; ICA/CCA PSV Ratio < 2.0 <50% STENOSIS - Plaque < 50%; ICA PSV < 125 cm/sec; ICA/CCA PSV Ratio < 2.0 50-69% STENOSIS - Plaque > 50%; ICA PSV = 125-230 cm/sec; ICA/CCA PSV Ratio = 2.0-4.0 >70% BUT <100% STENOSIS - Plaque > 50%; ICA PSV > 230 cm/sec; ICA/CCA PSV Ratio > 4.0 NEAR OCCLUSION - Plaque = visible lumen; ICA PSV = high/low/none; ICA/CCA PSV Ratio = variable TOTAL OCCLUSION - Plaque = no lumen; ICA PSV = none; ICA/CCA PSV Ratio = N/A Signer Name: Fam Newton MD Signed: 06/22/2021 1:09 PM Workstation Name: [id number]
[2021-06-22] MEDS: THIAMINE 250 MG in SODIUM CHLORIDE 0.9% 50 ML IV SCH (13:31)
--- NOTE | 2021-06-22 14:12 | Electrocardiograph Report ---
[facility] Test Date: 2021-06-22 Test Time: 02:55:24 Pat Name: ALDAIR JACKSON Department: Room: A484 1 Gender: F Face Boss: RACHELLE : 1965 Requested By: MAYLIN PITTS Order Number: [id number] Reading MD: Darling Briggs Measurements Intervals [place] Rate: 55 P: 0 AK: 178 QRS: -17 QRSD: 87 T: 93 QT: 474 QTc: 455 Interpretive Statements Sinus rhythm LVH with secondary repolarization abnormality No previous ECG available for comparison Electronically Signed On 06-22-2021 14:11:32 EST by Darling Briggs
--- NOTE | 2021-06-22 14:15 | Electrocardiograph Report ---
[facility] Test Date: 2021-06-22 Test Time: 09:40:43 Pat Name: ALDAIR JACKSON Department: Room: A484 1 Gender: F [employer]er: [id number] : 1965 Requested By: VINOD CORRIGAN Order Number: [id number] Reading MD: Darling Briggs Measurements Intervals [place] Rate: 58 P: 0 CA: 125 QRS: -33 QRSD: 86 T: 87 QT: 443 QTc: 437 Interpretive Statements Sinus rhythm Left ventricular hypertrophy Compared to ECG 06/22/2021 02:55:24 No significant change Electronically Signed On 06-22-2021 14:14:38 EST by Darling Briggs
--- NOTE | 2021-06-22 17:29 | Progress Note ---
Assessment and Plan 55 YO Female with Obesity, HTN presents to ED for evaluation of altered mental status. EMS was summoned to a truck park when the patient was found in her vehicle unresponsive. The patient was found by staff at the truck park unresponsive and covered in fecal material. Assessment and plan: # Acute encephalopathy -pt. is found in her truck unresponsive with fecal and urinary incontince: Possible postictal state following seizure -she is obtunded , and is able to move all limbs -drug screen is unremarkable -CT brain is remarkable for bilateral Hypo attenuation at thalami? -started on ASA and Lipitor -MRI brain is pending -Started on Thiamine IV - EEG ordered today, neuro consulted -Seizure precaution, will place on empirically IV Keppra # NSTEMI (non-ST elevated myocardial infarction) - elevated cardiac enzymes -Chest pain protocol: Serial cardiac enzymes, EKG, telemetry monitoring, echocardiogram, -Hold therapeutic anticoagulation until MRI result is available # DVT prophylaxis -SCD to bilateral lower extremities while in bed, Subjective Date of service: 06/22/21 Interval history: Patient seen and examined. Medical records and medication list reviewed. No acute event overnight noted by the RN. Patient remains very lethargic Discussed plan of care at bedside with patient's RN. Objective - Exam Narrative Exam: GENERAL: Elderly -[place] female appears to be very lethargic HEENT: Normocephalic. Atraumatic. No conjunctival congestion or icterus. Patient has moist mucous membranes. NECK: Supple. Trachea midline. CHEST/LUNGS: Clear to auscultated bilaterally, breathing nonlabored. No wheezes crackles or rhonchi. HEART/CARDIOVASCULAR: Regular in rate and rhythm. S1 and S2 positive. ABDOMEN: Abdomen is soft, nontender. Patient has normal bowel sounds. SKIN: There is no rash. Warm and dry. NEURO: Very lethargic, opens eyes with verbal command MUSCULOSKELETAL: No joint effusion or tenderness. EXTRIMITY: No edema, no cyanosis or clubbing. PSYCH: Unable to assess - Constitutional Vitals: Vital Signs - 12hr 06/22/21 06/22/21 12:26 16:26 Pulse Rate 74 O2 Sat by Pulse 97 Oximetry - Labs CBC & Chem 7: 06/21/21 14:45 06/21/21 14:45 Labs: Abnormal lab results 06/21/21 06/21/21 06/21/21 Range/Units 14:45 17:44 23:16 D-Dimer 815.68 H (0-234) ng/mlDDU Troponin T 0.395 H* D (0.00-0.029) ng/mL Urine Blood Small A (Negative) HEART Score - HEART Score Troponin: Troponin T 0.395 ng/mL (0.00-0.029) H* D 06/21/21 23:16
[2021-06-22] MEDS: levETIRAcetam 750 MG in DEXTROSE 5% IN WATER 100 ML IV SCH (20:15)
--- NOTE | 2021-06-23 10:30 | Consultation ---
History of Present Illness Consult date: 06/23/21 Consult reason: elevated troponin Past History Past Medical History: hypertension, other (See HPI) Past Surgical History: No surgical history, Other (Unable to obtain) Social history: no significant social history, single, other (Unable to obtain) Family history: no significant family history, other (Unable to obtain) Medications and Allergies Allergies Allergy/AdvReac Type Severity Reaction Status Date / Time No Known Allergies Allergy Unverified 06/21/21 13:19 Home Medications Medication Instructions Recorded Confirmed Last Taken Type Aspirin [Vazalore] 06/21/21 Unknown History Clopidogrel [Plavix] 06/21/21 Unknown History Losartan 06/21/21 Unknown History Metoprolol [Lopressor TAB] 06/21/21 Unknown History Active Meds: Active Medications Acetaminophen (Acetaminophen 325 Mg Tab) 650 mg PO Q6H PRN PRN Reason: Pain, Mild (1-3) Aspirin (Aspirin 325 Mg Tab) 325 mg PO QDAY [facility] Last Admin: 06/22/21 10:15 Dose: 325 mg Atorvastatin Calcium (Atorvastatin 40 Mg Tab) 40 mg PO QHS [facility] Last Admin: 06/22/21 23:00 Dose: 40 mg Bisacodyl (Bisacodyl 10 Mg Rect Supp) 10 mg DE QDAY PRN PRN Reason: Constipation Enoxaparin Sodium (Enoxaparin 80 Mg/0.8 Ml Inj) 80 mg SUB-Q BID [facility]; Protocol Last Admin: 06/22/21 23:00 Dose: 80 mg Hydromorphone HCl (Hydromorphone 1 Mg/1 Ml Inj) 0.5 mg IV Q23H PRN PRN Reason: Pain , Severe (7-10) Thiamine HCl 250 mg/ Sodium (Chloride) 52.5 mls @ 100 mls/hr IV QDAY [facility] Stop: 06/24/21 12:59 Last Admin: 06/22/21 13:31 Dose: 100 mls/hr Dextrose/Sodium Chloride (D5ns) 1,000 mls @ 75 mls/hr IV DIRECT JANAY Levetiracetam 750 mg/ Dextrose 107.5 mls @ 400 mls/hr IV Q12H [facility] Last Admin: 06/22/21 20:15 Dose: 400 mls/hr Magnesium Hydroxide (Magnesium Hydroxide (Mom) Oral Liqd Udc) 30 ml PO Q4H PRN PRN Reason: Constipation Metoclopramide HCl (Metoclopramide 10 Mg Tab) 10 mg PO Q6H PRN PRN Reason: Nausea And Vomiting Nitroglycerin (Nitroglycerin 0.4 Mg Tab Subl) 0.4 mg SL Q5M PRN PRN Reason: Chest Pain Ondansetron HCl (Ondansetron 4 Mg/2 Ml Inj) 4 mg IV Q8H PRN PRN Reason: Nausea And Vomiting Oxycodone/Acetaminophen (Oxycodone /Acetaminophen 5-325mg Tab) 1 tab PO Q16H PRN PRN Reason: Pain, Moderate (4-6) Promethazine HCl (Promethazine 25 Mg Rect Supp) 25 mg DE Q6H PRN PRN Reason: Nausea And Vomiting Sodium Chloride (Sodium Chloride 0.9% 10 Ml Flush Syringe) 10 ml IV PRN PRN PRN Reason: LINE FLUSH Sodium Chloride (Sodium Chloride 0.9% 10 Ml Flush Syringe) 10 ml IV PRN PRN PRN Reason: LINE FLUSH Tramadol HCl (Tramadol 50 Mg Tab) 50 mg PO Q6H PRN PRN Reason: Pain, Moderate (4-6) Physical Examination Vital Signs Pulse Ox 97 06/21/21 13:18 Results 06/21/21 14:45 06/21/21 14:45
--- NOTE | 2021-06-23 11:06 | Progress Note ---
Assessment and Plan Assessment and Plan 55 YO Female with Obesity, HTN presents to ED for evaluation. Patient is confused with diminished cognition at the time my evaluation is unable to provide history. Patient history taken from EMS staff, ED staff. EMS was summoned to a truck park when the patient was found in her vehicle unresponsive. 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 The patient was found by staff at the truck park unresponsive and covered in fecal material. - Patient Problems # Acute/Subacute encephalopathy -pt. is found in her truck unresponsive with fecal and urinary incontince -she is obtunded , and is able to move all limbs -Seizure can not be excluded -drug screen is unremarkable -CT brain is remarkable for bilateral Hypo attenuation at thalami? -started on ASA and Lipitor -MRI brain is pending -Start on Thiamine IV - EEG today is remarkable for mild diffuse slowing ,possibility of post ictal and or drug effect can not be excluded -Seizure precaution -cut down Keppra to 250 mg bid # NSTEMI (non-ST elevated myocardial infarction) - elevated cardiac enzymes -Chest pain protocol: Serial cardiac enzymes, EKG, telemetry monitoring, therapeutic anticoagulation, echocardiogram, D-dimer # DVT prophylaxis -SCD to bilateral lower extremities while in bed, continue therapeutic anticoagulation will follow Subjective Date of service: 06/23/21 Principal diagnosis: change in mentation Interval history: she is slightly better today move all limbs, follow simple command , no facial a symmetry , still drowsy and is with slurred speech MRI brain is pending placed on Keppra 750 mg bid and thiamine EEG is remarkable for diffuse slowing with possibility of drug effect vs post ictal can not be excluded UDS is unremarkable Objective - Vital Sign Vital Signs - 12hr 06/22/21 06/22/21 06/23/21 23:06 23:07 03:39 Temperature 98.9 F 98.9 F 97.4 F L Pulse Rate 60 79 59 L Respiratory 16 16 16 Rate Blood Pressure 198/96 156/91 Blood Pressure 165/98 [Left] O2 Sat by Pulse 98 96 98 Oximetry 06/23/21 07:54 Temperature 98.8 F Pulse Rate 72 Respiratory 18 Rate Blood Pressure 149/90 Blood Pressure [Left] O2 Sat by Pulse 99 Oximetry - General Apperance Constitutional: comfortable - EENT EENT: PERRL, mucous membranes moist - Respiratory Respiratory: chest non-tender, lungs clear, rhonchi - Cardiovascular Cardiovascular: regular rate, normal S1, normal S2 Extremities: no peripheral edema bilat, no clubbing, cyanosis - Gastrointestinal Gastrointestinal: normoactive bowel sounds - Integumentary Integumentary: normal - Neurologic Cranial nerve examination: PERRL, EOMI, intact Speech examination: other (slurred speech ) Detailed motor examination: grossly full strength in - Laboratory Findings CBC and BMP: 06/21/21 14:45 06/21/21 14:45 Abnormal Lab Findings: Abnormal Labs 06/21/21 06/21/21 06/21/21 14:45 14:45 14:45 WBC 11.2 H Hgb 14.4 H Hct 44.3 H INR 0.86 L APTT 24.1 L D-Dimer Glucose 203 H Lactic Acid Alkaline Phosphatase 135 H Ammonia Total Creatine Kinase 173 H Troponin T 0.311 H* Cholesterol 286 H LDL Cholesterol Direct 178 H HDL Cholesterol 83 H Urine Blood Salicylates Acetaminophen 06/21/21 06/21/21 06/21/21 14:45 14:45 14:45 WBC Hgb Hct INR APTT D-Dimer Glucose Lactic Acid < 0.20 L Alkaline Phosphatase Ammonia 19.0 L Total Creatine Kinase Troponin T Cholesterol LDL Cholesterol Direct HDL Cholesterol Urine Blood Salicylates < 0.3 L Acetaminophen 06/21/21 06/21/21 06/21/21 14:45 14:45 17:44 WBC Hgb Hct INR APTT D-Dimer 815.68 H Glucose Lactic Acid Alkaline Phosphatase Ammonia Total Creatine Kinase Troponin T Cholesterol LDL Cholesterol Direct HDL Cholesterol Urine Blood Small A Salicylates Acetaminophen 5.0 L 06/21/21 06/22/21 06/23/21 23:16 18:41 00:13 WBC Hgb Hct INR APTT D-Dimer Glucose Lactic Acid Alkaline Phosphatase Ammonia Total Creatine Kinase Troponin T 0.395 H* D 0.340 H* 0.307 H* Cholesterol LDL Cholesterol Direct HDL Cholesterol Urine Blood Salicylates Acetaminophen
[2021-06-23] MEDS: ASPIRIN 325 MG TAB PO SCH (11:10)
[2021-06-23] MEDS: ENOXAPARIN 80 MG/0.8 ML INJ SUB-Q SCH ×2 (11:10→21:44)
[2021-06-23] MEDS: levETIRAcetam 750 MG in DEXTROSE 5% IN WATER 100 ML IV SCH (11:16)
[2021-06-23] MEDS: levETIRAcetam 250 MG in DEXTROSE 5% IN WATER 100 ML IV SCH (11:28)
[2021-06-23 12:34] LABS: Hemoglobin 13.2 gm/dl (10.1-14.3)
--- NOTE | 2021-06-23 12:59 | Consultation ---
History of Present Illness Consult date: 06/23/21 Consult reason: elevated troponin History of present illness: The patient is a 55-year-old woman who was admitted to the hospital following an episode of unresponsiveness. 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 She was covered in dried urine and feces. On presentation to the emergency room, there was severe elevation of her blood pressure to 200 systolic. She has been weak since arrival to the hospital but is slow to follow commands and unable to provide a medical history. She appears still mildly confused. She is able to move all 4 extremities. Work-up here with head CT scan reports evidence of bilateral thalamic infarcts. Neurology has ordered follow-up head MRI for further assessment. ECG was sinus rhythm with left ventricular hypertrophy by voltage criteria, but otherwise normal ECG. Chest x-ray demonstrated normal-sized cardiac silhouette and clear lungs. An echocardiogram done yesterday demonstrated left ventricular systolic function mildly impaired with ejection fraction 45%, moderate concentric left ventricle hypertrophy, negative saline bubble contrast assessment. The troponin measurements were borderline elevated at 0.3, unchanged on multiple serial measurements. The troponin elevation prompted a cardiac consultation. In addition to chronic hypertension, the patient has history of coronary artery disease. Records from [facility] in [facility] showed in 05/2016 she underwent staged two-vessel coronary intervention with drug-eluting stents to a chronic total occlusion of the right coronary artery, followed by second vessel coronary intervention to a stenosis of the mid LAD. The next month, additional stents were implanted in the distal LAD. More recently 6 months ago she had a negative exercise stress test during which she exercised for 6 minutes of a Parveen protocol. Serial LV function assessments in [place] described n ormal left ventricular systolic function with ejection fraction about 55%. Past History Past Medical History: CAD, hypertension Past Surgical History: No surgical history, Other (Unable to obtain) Social history: no significant social history, single, other (Unable to obtain) Family history: no significant family history, other (Unable to obtain) Medications and Allergies Allergies Allergy/AdvReac Type Severity Reaction Status Date / Time No Known Allergies Allergy Unverified 06/21/21 13:19 Home Medications Medication Instructions Recorded Confirmed Last Taken Type Aspirin [[place]] 06/21/21 Unknown History Clopidogrel [Plavix] 06/21/21 Unknown History Losartan 06/21/21 Unknown History Metoprolol [Lopressor TAB] 06/21/21 Unknown History Active Meds: Active Medications Acetaminophen (Acetaminophen 325 Mg Tab) 650 mg PO Q6H PRN PRN Reason: Pain, Mild (1-3) Aspirin (Aspirin 325 Mg Tab) 325 mg PO QDAY [facility] Last Admin: 06/23/21 11:10 Dose: 325 mg Atorvastatin Calcium (Atorvastatin 40 Mg Tab) 40 mg PO QHS [facility] Last Admin: 06/22/21 23:00 Dose: 40 mg Bisacodyl (Bisacodyl 10 Mg Rect Supp) 10 mg MT QDAY PRN PRN Reason: Constipation Enoxaparin Sodium (Enoxaparin 80 Mg/0.8 Ml Inj) 80 mg SUB-Q BID [facility]; Protocol Last Admin: 06/23/21 11:10 Dose: 80 mg Hydromorphone HCl (Hydromorphone 1 Mg/1 Ml Inj) 0.5 mg IV Q23H PRN PRN Reason: Pain , Severe (7-10) Thiamine HCl 250 mg/ Sodium (Chloride) 52.5 mls @ 100 mls/hr IV QDAY [facility] Stop: 06/24/21 12:59 Last Admin: 06/22/21 13:31 Dose: 100 mls/hr Dextrose/Sodium Chloride (D5ns) 1,000 mls @ 75 mls/hr IV DIRECT JANAY Levetiracetam 250 mg/ Dextrose 102.5 mls @ 400 mls/hr IV Q12H [facility] Last Admin: 06/23/21 11:28 Dose: Not Given Magnesium Hydroxide (Magnesium Hydroxide (Mom) Oral Liqd Udc) 30 ml PO Q4H PRN PRN Reason: Constipation Metoclopramide HCl (Metoclopramide 10 Mg Tab) 10 mg PO Q6H PRN PRN Reason: Nausea And Vomiting Nitroglycerin (Nitroglycerin 0.4 Mg Tab Subl) 0.4 mg SL Q5M PRN PRN Reason: Chest Pain Ondansetron HCl (Ondansetron 4 Mg/2 Ml Inj) 4 mg IV Q8H PRN PRN Reason: Nausea And Vomiting Oxycodone/Acetaminophen (Oxycodone /Acetaminophen 5-325mg Tab) 1 tab PO Q16H PRN PRN Reason: Pain, Moderate (4-6) Promethazine HCl (Promethazine 25 Mg Rect Supp) 25 mg MT Q6H PRN PRN Reason: Nausea And Vomiting Sodium Chloride (Sodium Chloride 0.9% 10 Ml Flush Syringe) 10 ml IV PRN PRN PRN Reason: LINE FLUSH Sodium Chloride (Sodium Chloride 0.9% 10 Ml Flush Syringe) 10 ml IV PRN PRN PRN Reason: LINE FLUSH Tramadol HCl (Tramadol 50 Mg Tab) 50 mg PO Q6H PRN PRN Reason: Pain, Moderate (4-6) Review of Systems ROS unobtainable: due to mental status Physical Examination Vital Signs Pulse Ox 97 06/21/21 13:18 General appearance: no acute distress, other (Mildly confused, follows commands slowly) HEENT: Positive: PERRL Neck: Positive: neck supple Cardiac: Positive: Reg Rate and Rhythm Lungs: Positive: Decreased Breath Sounds Neuro: Positive: Grossly Intact Abdomen: Positive: Soft Female genitourinary: deferred Skin: Positive: Clear Extremities: Absent: edema Results 06/23/21 12:23 06/21/21 14:45 CBC 06/23/21 Range/Units 12:23 WBC 8.4 (4.5-11.0) K/mm3 Hgb 13.2 (10.1-14.3) gm/dl EKG interpretations - Telemetry EKG Rhythm: Sinus Rhythm (Left ventricle hypertrophy by voltage criteria, otherwise normal ECG) Assessment and Plan - Patient Problems (1) Syncope Current Visit: Yes Status: Acute Plan to address problem: Patient found unresponsive, brought to the hospital with a CT scan showing bilateral thalamic infarcts. Further neuro assessment and management in progress. Echocardiogram shows left ventricular ejection fraction of 45%, but negative contrast bubble study. (2) Coronary artery disease Current Visit: Yes Status: Acute Plan to address problem: Patient has history of complex coronary artery disease with two-vessel coronary stenting 4 years ago. Most recent stress test 6 months ago was negative. ECG on this presentation is normal with no ischemic ST or T wave changes. The mild troponin elevation that was unchanged on serial levels appears a likely nonspecific finding. We will continue guideline directed medical therapy for coronary artery disease, and continue follow-up as indicated. Further cardiac evaluation and management will depend on clinical course.
[2021-06-23 13:02] LABS: BUN/Creatinine Ratio 11; Blood Urea Nitrogen 10 mg/dL (7-17); Calcium 8.5 mg/dL (8.4-10.2); Hemolysis Index 4
[2021-06-23 13:20] LABS: Hematocrit 40.6 % (30.3-42.9); Mean Corpuscular HGB Conc 33 % (30-34); Mean Corpuscular Volume 95 fl (79-97); Platelet Count 306 K/mm3 (140-440); Red Blood Count 4.27 M/mm3 (3.65-5.03); Red Cell Distribution Width 13.5 % (13.2-15.2)
[2021-06-23] MEDS: THIAMINE 250 MG in SODIUM CHLORIDE 0.9% 50 ML IV SCH (13:33)
--- NOTE | 2021-06-23 18:10 | Progress Note ---
Assessment and Plan 55 YO Female with Obesity, HTN presents to ED for evaluation of altered mental status. EMS was summoned to a truck park when the patient was found in her vehicle unresponsive. The patient was found by staff at the truck park unresponsive and covered in fecal material. Daily clinical Course: 06/23: Remains lathergic and confused. drug screen is unremarkable, CT brain is remarkable for bilateral Hypo attenuation at thalami? cont on ASA and Lipitor MRI brain is pending, Started on Thiamine IV. EEG today is remarkable for mild diffuse slowing ,possibility of post ictal and or drug effect can not be excluded cont Seizure precaution and Keppra to 250 mg bid Assessment and plan: # Acute encephalopathy -pt. is found in her truck unresponsive with fecal and urinary incontince: Possible postictal state following seizure -she is obtunded , and is able to move all limbs -drug screen is unremarkable -CT brain is remarkable for bilateral Hypo attenuation at thalami? -started on ASA and Lipitor -MRI brain is pending -Started on Thiamine IV - EEG ordered today, neuro consulted -Seizure precaution, will place on empirically IV Keppra # Elevated troponin/NSTEMI type 2 - elevated cardiac enzymes -Chest pain protocol: Serial cardiac enzymes, EKG, telemetry monitoring, echocardiogram, -cardiology following and recommended medical Mx, as the mild troponin elevation that was unchanged on serial levels appears a likely nonspecific finding. # Syncope Patient found unresponsive, brought to the hospital with a CT scan showing bilateral thalamic infarcts. Further neuro assessment and management in progress: MRI brain EEG pending Echocardiogram shows left ventricular ejection fraction of 45%, but negative contrast bubble study. # Coronary artery disease history of two-vessel coronary stenting 4 years ago. Most recent stress test 6 months ago was negative. ECG on this presentation is normal with no ischemic ST or T wave changes. cardiology following, cont medical mx # DVT prophylaxis -SCD to bilateral lower extremities while in bed, Subjective Date of service: 06/23/21 Principal diagnosis: change in mentation Interval history: Patient seen and examined. Medical records and medication list reviewed. No acute event overnight noted by the RN. Patient remains very lethargic and confused Discussed plan of care at bedside with patient's RN. Objective - Exam Narrative Exam: GENERAL: Elderly -[place] female appears to be very lethargic HEENT: Normocephalic. Atraumatic. No conjunctival congestion or icterus. Patient has moist mucous membranes. NECK: Supple. Trachea midline. CHEST/LUNGS: Clear to auscultated bilaterally, breathing nonlabored. No wheezes crackles or rhonchi. HEART/CARDIOVASCULAR: Regular in rate and rhythm. S1 and S2 positive. ABDOMEN: Abdomen is soft, nontender. Patient has normal bowel sounds. SKIN: There is no rash. Warm and dry. NEURO: Very lethargic, opens eyes with verbal command MUSCULOSKELETAL: No joint effusion or tenderness. EXTRIMITY: No edema, no cyanosis or clubbing. PSYCH: Unable to assess - Constitutional Vitals: Vital Signs - 12hr 06/23/21 06/23/21 06/23/21 07:54 11:46 16:00 Temperature 98.8 F 98.2 F Pulse Rate 72 67 Respiratory 18 16 Rate Blood Pressure 149/90 148/90 O2 Sat by Pulse 99 97 95 Oximetry 06/23/21 17:05 Temperature 98.3 F Pulse Rate 58 L Respiratory 16 Rate Blood Pressure 149/80 O2 Sat by Pulse 98 Oximetry - Labs CBC & Chem 7: 06/28/21 09:01 06/28/21 09:02 Labs: Abnormal lab results 06/22/21 06/23/21 06/23/21 Range/Units 18:41 00:13 12:23 Glucose (65-100) mg/dL Troponin T 0.340 H* 0.307 H* 0.312 H* (0.00-0.029) ng/mL 06/23/21 Range/Units 12:23 Glucose 121 H (65-100) mg/dL Troponin T (0.00-0.029) ng/mL HEART Score - HEART Score Troponin: Troponin T 0.312 ng/mL (0.00-0.029) H* 06/23/21 12:23
[2021-06-24] MEDS: levETIRAcetam 250 MG in DEXTROSE 5% IN WATER 100 ML IV SCH ×2 (00:34→13:00)
[2021-06-24] MEDS: D5W/0.9% NACL 1,000 ML IV SCH ×2 (00:38→18:01)
[2021-06-24] MEDS: ASPIRIN 325 MG TAB PO SCH (09:32)
[2021-06-24] MEDS: ENOXAPARIN 80 MG/0.8 ML INJ SUB-Q SCH ×2 (09:32→21:28)
[2021-06-24] MEDS: THIAMINE 250 MG in SODIUM CHLORIDE 0.9% 50 ML IV SCH (12:01)
--- NOTE | 2021-06-24 12:54 | Progress Note ---
Assessment and Plan - Patient Problems (1) Syncope Current Visit: Yes Status: Acute Plan to address problem: Patient found unresponsive, brought to the hospital with a CT scan showing bilateral thalamic infarcts. Further neuro assessment and management in progress . Echocardiogram shows left ventricular ejection fraction of 45%, but negative contrast bubble study. (2) Coronary artery disease Current Visit: Yes Status: Acute Plan to address problem: History of complex coronary artery disease with two-vessel coronary stenting 4 years ago. Most recent stress test 6 months ago was negative. ECG on this presentation is normal with no ischemic ST or T wave changes. The mild troponin elevation that was unchanged on serial levels appears a likely nonspecific finding. We will continue guideline directed medical therapy for coronary artery disease, and continue follow-up as indicated. Further cardiac evaluation and management will depend on clinical course. Subjective Date of service: 06/24/21 Principal diagnosis: Altered mental status Interval history: Patient is quite sleepy, and mildly confused, but breathing comfortably on room air. No acute distress. Objective Vital Signs Temp Pulse Resp BP Pulse Ox 06/24/21 08:26 98.4 F 55 L 18 168/93 100 06/24/21 03:58 97.8 F 18 143/76 06/24/21 03:00 49 L 91 06/23/21 23:36 97.4 F L 54 L 18 146/88 100 06/23/21 22:34 18 96 06/23/21 22:00 98 06/23/21 20:37 98.2 F 88 18 127/82 98 06/23/21 17:05 98.3 F 58 L 16 149/80 98 06/23/21 16:00 95 - Physical Examination General: No Apparent Distress, Other (Mildly confused) HEENT: Positive: PERRL Neck: Positive: neck supple Cardiac: Positive: Reg Rate and Rhythm Lungs: Positive: Decreased Breath Sounds Neuro: Positive: Grossly Intact Abdomen: Positive: Soft Skin: Positive: Clear Extremities: Absent: edema - Labs and Meds CBC 06/23/21 Range/Units 12:23 RBC 4.27 (3.65-5.03) M/mm3 Hct 40.6 (30.3-42.9) % Plt Count 306 (140-440) K/mm3 Comprehensive Metabolic Panel 06/23/21 Range/Units 12:23 Sodium 139 (137-145) mmol/L Potassium 3.6 (3.6-5.0) mmol/L Chloride 102.4 (98-107) mmol/L Carbon Dioxide 25 (22-30) mmol/L BUN 10 (7-17) mg/dL Creatinine 0.9 (0.6-1.2) mg/dL Glucose 121 H (65-100) mg/dL Calcium 8.5 (8.4-10.2) mg/dL
--- NOTE | 2021-06-24 13:07 | Electrocardiograph Report ---
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
--- NOTE | 2021-06-24 13:27 | Progress Note ---
Assessment and Plan Assessment and Plan 55 YO Female with Obesity, HTN presents to ED for evaluation. Patient is confused with diminished cognition at the time my evaluation is unable to provide history. Patient history taken from EMS staff, ED staff. EMS was summoned to a truck park when the patient was found in her vehicle unresponsive. 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 The patient was found by staff at the truck park unresponsive and covered in fecal material. - Patient Problems # Acute/Subacute encephalopathy -pt. is found in her truck unresponsive with fecal and urinary incontince -she is obtunded , and is able to move all limbs -Seizure can not be excluded -drug screen is unremarkable -CT brain is remarkable for bilateral Hypo attenuation at thalami? -started on ASA and Lipitor -MRI brain is pending -Start on Thiamine IV - EEG today is remarkable for mild diffuse slowing ,possibility of post ictal and or drug effect can not be excluded -Seizure precaution -cut down Keppra to 250 mg bid -According to pt. today she had Hx of seizure ? but not on medication she is with hx of CVD and stent -she is still sluggish to respond and with no focal neurological deficit other than drowsiness and slurred speech -MRI brain is pending # NSTEMI (non-ST elevated myocardial infarction) - elevated cardiac enzymes -Chest pain protocol: Serial cardiac enzymes, EKG, telemetry monitoring, therapeutic anticoagulation, echocardiogram, D-dimer # DVT prophylaxis -SCD to bilateral lower extremities while in bed, continue therapeutic anticoagulation will follow Subjective Date of service: 06/24/21 Principal diagnosis: Altered mental status Interval history: she is slightly better today move all limbs, follow simple command , no facial asymmetry , still drowsy and is with slurred speech MRI brain is pending placed on Keppra 750 mg bid and thiamine EEG is remarkable for diffuse slowing with possibility of drug effect vs post ictal can not be excluded UDS is unremarkable Objective - Vital Sign Vital Signs - 12hr 06/24/21 06/24/21 06/24/21 03:00 03:58 08:26 Temperature 97.8 F 98.4 F Pulse Rate 49 L 55 L Respiratory 18 18 Rate Blood Pressure 143/76 168/93 O2 Sat by Pulse 91 100 Oximetry - General Apperance Constitutional: comfortable - EENT EENT: PERRL, mucous membranes moist - Respiratory Respiratory: lungs clear, rhonchi - Cardiovascular Cardiovascular: regular rate, normal S1, normal S2 Extremities: no peripheral edema bilat, no clubbing, cyanosis - Gastrointestinal Gastrointestinal: normoactive bowel sounds - Integumentary Integumentary: normal - Neurologic Cranial nerve examination: PERRL, EOMI, other (slight eye lids drooping ,EOMI, pupils 3mm reactive , no facial aymmetry other zuniga) Detailed motor examination: grossly full strength in - Laboratory Findings CBC and BMP: 06/23/21 12:23 06/23/21 12:23 Abnormal Lab Findings: Abnormal Labs 06/21/21 06/21/21 06/21/21 14:45 14:45 14:45 WBC 11.2 H Hgb 14.4 H Hct 44.3 H INR 0.86 L APTT 24.1 L D-Dimer Glucose 203 H Lactic Acid Alkaline Phosphatase 135 H Ammonia Total Creatine Kinase 173 H Troponin T 0.311 H* Cholesterol 286 H LDL Cholesterol Direct 178 H HDL Cholesterol 83 H Urine Blood Salicylates Acetaminophen 06/21/21 06/21/21 06/21/21 14:45 14:45 14:45 WBC Hgb Hct INR APTT D-Dimer Glucose Lactic Acid < 0.20 L Alkaline Phosphatase Ammonia 19.0 L Total Creatine Kinase Troponin T Cholesterol LDL Cholesterol Direct HDL Cholesterol Urine Blood Salicylates < 0.3 L Acetaminophen 06/21/21 06/21/21 06/21/21 14:45 14:45 17:44 WBC Hgb Hct INR APTT D-Dimer 815.68 H Glucose Lactic Acid Alkaline Phosphatase Ammonia Total Creatine Kinase Troponin T Cholesterol LDL Cholesterol Direct HDL Cholesterol Urine Blood Small A Salicylates Acetaminophen 5.0 L 06/21/21 06/22/21 06/23/21 23:16 18:41 00:13 WBC Hgb Hct INR APTT D-Dimer Glucose Lactic Acid Alkaline Phosphatase Ammonia Total Creatine Kinase Troponin T 0.395 H* D 0.340 H* 0.307 H* Cholesterol LDL Cholesterol Direct HDL Cholesterol Urine Blood Salicylates Acetaminophen 06/23/21 06/23/21 12:23 12:23 WBC Hgb Hct INR APTT D-Dimer Glucose 121 H Lactic Acid Alkaline Phosphatase Ammonia Total Creatine Kinase Troponin T 0.312 H* Cholesterol LDL Cholesterol Direct HDL Cholesterol Urine Blood Salicylates Acetaminophen
--- NOTE | 2021-06-24 14:08 | Magnetic Resonance Report ---
MRI BRAIN WITHOUT AND WITH CONTRAST INDICATION / CLINICAL INFORMATION: Seizure disorder. TECHNIQUE: Multiplanar, multisequence MR images of the brain were obtained. COMPARISON: Head CT on 06/21/2021 FINDINGS: BRAIN / INTRACRANIAL CONTENTS: There is abnormal increased T2 signal with some associated susceptibil ity artifact and swelling in both thalami. There is no true restricted diffusion. The remaining brain parenchymal signal is normal. There may be developing mild hydrocephalus of the lateral ventricles due to obstruction at the level of the third ventricle outflow tract. CRANIOCERVICAL JUNCTION: No significant abnormality. VASCULAR FLOW-VOIDS: No significant abnormality. ORBITS: No significant abnormality of visualized orbits. SINUSES / MASTOIDS: No significant abnormality of visualized sinuses and mastoid air cells. ADDITIONAL FINDINGS: None. IMPRESSION: 1. Bilateral relatively symmetrical thalamic abnormalities. 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 Other considerations would include bilateral thalamic infarcts, osmotic myelinolysis, and, a nd viral encephalitis. 2. Possible early hydrocephalus due to ventricular obstruction at the level of the third ventricle ou tflow tract. Signer Name: Stephen Allred MD Signed: 06/24/2021 2:03 PM Workstation Name: [id number]
--- NOTE | 2021-06-24 14:39 | Progress Note ---
Assessment and Plan 55 YO Female with Obesity, HTN presents to ED for evaluation of altered mental status. EMS was summoned to a truck park when the patient was found in her vehicle unresponsive. The patient was found by staff at the truck park unresponsive and covered in fecal material. Daily clinical Course: 06/23: Remains lathergic and confused. drug screen is unremarkable, CT brain is remarkable for bilateral Hypo attenuation at thalami? cont on ASA and Lipitor MRI brain is pending, Started on Thiamine IV. EEG today is remarkable for mild diffuse slowing ,possibility of post ictal and or drug effect can not be excluded cont Seizure precaution and Keppra to 250 mg bid 06/24: Remains lethargic, MRI brain pending, continue Keppra twice daily. Continue to follow clinically with supportive care Assessment and plan: # Acute encephalopathy -pt. is found in her truck unresponsive with fecal and urinary incontince: Possible postictal state following seizure -she is obtunded , and is able to move all limbs -drug screen is unremarkable -CT brain is remarkable for bilateral Hypo attenuation at thalami? -started on ASA and Lipitor -MRI brain is pending -Started on Thiamine IV - EEG w/o any seizure like activity -Seizure precaution, cont on empirically IV Keppra # Elevated troponin/NSTEMI type 2 - elevated cardiac enzymes -Chest pain protocol: Serial cardiac enzymes, EKG, telemetry monitoring, echocardiogram, -cardiology following and recommended medical Mx, as the mild troponin elevation that was unchanged on serial levels appears a likely nonspecific finding. # Syncope Patient found unresponsive, brought to the hospital with a CT scan showing bilateral thalamic infarcts. Further neuro assessment and management in progress: MRI brain EEG pending Echocardiogram shows left ventricular ejection fraction of 45%, but negative contrast bubble study. # Coronary artery disease history of two-vessel coronary stenting 4 years ago. Most recent stress test 6 months ago was negative. ECG on this presentation is normal with no ischemic ST or T wave changes. cardiology following, cont medical mx # DVT prophylaxis -SCD to bilateral lower extremities while in bed. Subjective Date of service: 06/24/21 Principal diagnosis: Altered mental status Interval history: Patient seen and examined. Medical records and medication list reviewed. No acute event overnight noted by the RN. Patient remains very lethargic and confused Discussed plan of care at bedside with patient's RN. Objective - Exam Narrative Exam: GENERAL: Elderly -[place] female appears to be very lethargic HEENT: Normocephalic. Atraumatic. No conjunctival congestion or icterus. Patient has moist mucous membranes. NECK: Supple. Trachea midline. CHEST/LUNGS: Clear to auscultated bilaterally, breathing nonlabored. No wheezes crackles or rhonchi. HEART/CARDIOVASCULAR: Regular in rate and rhythm. S1 and S2 positive. ABDOMEN: Abdomen is soft, nontender. Patient has normal bowel sounds. SKIN: There is no rash. Warm and dry. NEURO: Very lethargic, opens eyes with verbal command MUSCULOSKELETAL: No joint effusion or tenderness. EXTRIMITY: No edema, no cyanosis or clubbing. PSYCH: Unable to assess - Constitutional Vitals: Vital Signs - 12hr 06/24/21 06/24/21 06/24/21 03:00 03:58 08:26 Temperature 97.8 F 98.4 F Pulse Rate 49 L 55 L Respiratory 18 18 Rate Blood Pressure 143/76 168/93 O2 Sat by Pulse 91 100 Oximetry 06/24/21 12:37 Temperature 98.0 F Pulse Rate 64 Respiratory Rate Blood Pressure 140/89 O2 Sat by Pulse 99 Oximetry - Labs CBC & Chem 7: 06/28/21 09:01 06/28/21 09:02 HEART Score - HEART Score Troponin: Troponin T 0.312 ng/mL (0.00-0.029) H* 06/23/21 12:23
[2021-06-24] MEDS: amLODIPine 5 MG TAB PO SCH (18:16)
--- NOTE | 2021-06-25 10:04 | Progress Note ---
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 Further neuro assessment and management in progress. Echocardiogram shows left ventricular ejection fraction of 45%, but negative contrast bubble study. Conservative cardiac management. (2) Coronary artery disease Current Visit: Yes Status: Acute Plan to address problem: Patient has a history of complex coronary artery disease with two-vessel coronary stenting 4 years ago at a hospital in [place]. Most recent follow-up stress test 6 months ago was negative, patient was reported to have exercise for 6 minutes of Parveen protocol. We will continue guideline directed medical therapy for coronary artery disease, and continue follow-up as indicated. Further cardiac evaluation and management will depend on clinical course. 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 No chest pain, no cardiac complaints, no new cardiac events reported. Objective Vital Signs Temp Pulse Resp BP BP Pulse Ox 06/25/21 04:13 98.4 F 58 L 18 118/61 100 06/25/21 00:00 70 17 139/70 100 06/24/21 21:11 97 06/24/21 20:26 98 06/24/21 19:52 98.3 F 60 18 142/72 99 06/24/21 17:54 98.0 F 70 193/114 92 06/24/21 12:37 98.0 F 64 140/89 99 - Physical Examination General: No Apparent Distress, Other (Mildly confused) HEENT: Positive: PERRL Neck: Positive: neck supple Cardiac: Positive: Reg Rate and Rhythm Lungs: Positive: clear to auscultation Neuro: Positive: Grossly Intact Abdomen: Positive: Soft Skin: Positive: Clear Extremities: Absent: edema
[2021-06-25] MEDS: ASPIRIN 325 MG TAB PO SCH (10:17)
[2021-06-25] MEDS: ENOXAPARIN 80 MG/0.8 ML INJ SUB-Q SCH ×2 (10:17→22:05)
[2021-06-25] MEDS: amLODIPine 5 MG TAB PO SCH (10:17)
--- NOTE | 2021-06-25 11:18 | Progress Note ---
Assessment and Plan Assessment and Plan 55 YO Female with Obesity, HTN presents to ED for evaluation. Patient is confused with diminished cognition at the time my evaluation is unable to provide history. Patient history taken from EMS staff, ED staff. EMS was summoned to a truck park when the patient was found in her vehicle unresponsive. 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 The patient was found by staff at the truck park unresponsive and covered in fecal material. - Patient Problems # Acute/Subacute encephalopathy -pt. is found in her truck unresponsive with fecal and urinary incontince -she is obtunded , and is able to move all limbs -Seizure can not be excluded -drug screen is unremarkable -CT brain is remarkable for bilateral Hypo attenuation at thalami? -started on ASA and Lipitor -MRI brain is suggestive of bilateral thalamic lesion with wide DD -Start on Thiamine IV - EEG today is remarkable for mild diffuse slowing ,possibility of post ictal and or drug effect can not be excluded -Seizure precaution -cut down Keppra to 250 mg bid -According to pt. today she had Hx of seizure ? but not on medication she is with hx of CVD and stent -she is still sluggish to respond and with no focal neurological deficit other than drowsiness and slurred speech -MRI brain is noted -will proceed with LP R/O encephalitis -might need to consider NS openion ? third ventricle obstruction # NSTEMI (non-ST elevated myocardial infarction) - elevated cardiac enzymes -Chest pain protocol: Serial cardiac enzymes, EKG, telemetry monitoring, therapeutic anticoagulation, echocardiogram, D-dimer # DVT prophylaxis -SCD to bilateral lower extremities while in bed, continue therapeutic anticoagulation will follow Subjective Date of service: 06/25/21 Principal diagnosis: Altered mental status Interval history: she is slightly better today move all limbs, follow simple command , no facial asymmetry , still drowsy and is with slurred speech MRI brain is same like CT ? bilateral thalamic hypodensity ? r/o anoxia? 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 placed on Keppra 250 mg bid and thiamine EEG is remarkable for diffuse slowing with possibility of drug effect vs post ictal can not be excluded UDS is unremarkable Objective - Vital Sign Vital Signs - 12hr 06/25/21 06/25/21 00:00 04:13 Temperature 98.4 F Pulse Rate 70 58 L Respiratory 17 18 Rate Blood Pressure 118/61 Blood Pressure 139/70 [Left] O2 Sat by Pulse 100 100 Oximetry - General Apperance Constitutional: comfortable - EENT EENT: PERRL, mucous membranes moist - Respiratory Respiratory: lungs clear, rhonchi - Cardiovascular Cardiovascular: regular rate, normal S1, normal S2 Extremities: no peripheral edema bilat, no clubbing, cyanosis - Gastrointestinal Gastrointestinal: normoactive bowel sounds - Integumentary Integumentary: normal - Neurologic Cranial nerve examination: PERRL, EOMI, other (eye lid droop bilteral ,EOMI , no facial asymmetry ) Speech examination: other (still with slurred speech ) Detailed motor examination: grossly full strength in - Laboratory Findings CBC and BMP: 06/23/21 12:23 06/23/21 12:23 Abnormal Lab Findings: Abnormal Labs 06/21/21 06/21/21 06/21/21 14:45 14:45 14:45 WBC 11.2 H Hgb 14.4 H Hct 44.3 H INR 0.86 L APTT 24.1 L D-Dimer Glucose 203 H Lactic Acid Alkaline Phosphatase 135 H Ammonia Total Creatine Kinase 173 H Troponin T 0.311 H* Cholesterol 286 H LDL Cholesterol Direct 178 H HDL Cholesterol 83 H Urine Blood Salicylates Acetaminophen 06/21/21 06/21/21 06/21/21 14:45 14:45 14:45 WBC Hgb Hct INR APTT D-Dimer Glucose Lactic Acid < 0.20 L Alkaline Phosphatase Ammonia 19.0 L Total Creatine Kinase Troponin T Cholesterol LDL Cholesterol Direct HDL Cholesterol Urine Blood Salicylates < 0.3 L Acetaminophen 06/21/21 06/21/21 06/21/21 14:45 14:45 17:44 WBC Hgb Hct INR APTT D-Dimer 815.68 H Glucose Lactic Acid Alkaline Phosphatase Ammonia Total Creatine Kinase Troponin T Cholesterol LDL Cholesterol Direct HDL Cholesterol Urine Blood Small A Salicylates Acetaminophen 5.0 L 06/21/21 06/22/21 06/23/21 23:16 18:41 00:13 WBC Hgb Hct INR APTT D-Dimer Glucose Lactic Acid Alkaline Phosphatase Ammonia Total Creatine Kinase Troponin T 0.395 H* D 0.340 H* 0.307 H* Cholesterol LDL Cholesterol Direct HDL Cholesterol Urine Blood Salicylates Acetaminophen 06/23/21 06/23/21 12:23 12:23 WBC Hgb Hct INR APTT D-Dimer Glucose 121 H Lactic Acid Alkaline Phosphatase Ammonia Total Creatine Kinase Troponin T 0.312 H* Cholesterol LDL Cholesterol Direct HDL Cholesterol Urine Blood Salicylates Acetaminophen
[2021-06-25] MEDS: D5W/0.9% NACL 1,000 ML IV SCH (12:38)
[2021-06-25] MEDS: levETIRAcetam 250 MG in DEXTROSE 5% IN WATER 100 ML IV SCH ×2 (12:39)
[2021-06-25 12:44] LABS: Glucose,CSF 117 mg/dL
--- NOTE | 2021-06-25 13:12 | Fluoroscopy Report ---
LUMBAR PUNCTURE INDICATION : Altered mental status, encephalopathy and abnormal MRI brain PROCEDURE: The risks (including but not limited to bleeding, infection, and spinal headache) and chase efits were explained to the patient and informed consent was obtained. A time out procedure was perf ormed. The procedure site was prepped and draped in the usual sterile fashion and lidocaine was used for local anesthesia. Under fluoroscopic guidance, a 22-gauge spinal needle was advanced into the L2-3 interlaminar space. The opening pressure was 100 mm H2O which was calculated by adding the length of the needle (9 cm) to the height of the CSF column. 4 separate collection tubes were used to obtain 2 cc of CSF each. Samp les were sent to the lab per the ordering physician specifications for further evaluation. The patient tolerated the procedure well with no complications. IMPRESSION: Successful lumbar puncture as outlined above. Opening pressure was 100 mm H20. Fluoroscopic time: 0.4 Number of fluoroscopic images: 1 Signer Name: Isiah Cardoza Jr, MD Signed: 06/25/2021 1:08 PM Workstation Name: [id number]
--- NOTE | 2021-06-25 13:31 | Procedure Note ---
Date of procedure: 06/25/21 Pre-op diagnosis: encephalopathy Post-op diagnosis: same Procedure: Lumbar puncture Findings: normal pressure Anesthesia: local Surgeon: JOE MENARD Estimated blood loss: none Pathology: list (4 csf tubes) Specimen disposition: to lab Condition: stable Disposition: floor
[2021-06-25 14:30] LABS: Appearance,CSF Clear; Red Blood Cell,CSF 1 /mm3 (0-0); White Blood Cell,CSF 2 /mm3 (1-10)
--- NOTE | 2021-06-25 15:46 | Progress Note ---
Assessment and Plan 55 YO Female with Obesity, HTN presents to ED for evaluation of altered mental status. EMS was summoned to a truck park when the patient was found in her vehicle unresponsive. The patient was found by staff at the truck park unresponsive and covered in fecal material. Daily clinical Course: 06/23: Remains lathergic and confused. drug screen is unremarkable, CT brain is remarkable for bilateral Hypo attenuation at thalami? cont on ASA and Lipitor MRI brain is pending, Started on Thiamine IV. EEG today is remarkable for mild diffuse slowing ,possibility of post ictal and or drug effect can not be excluded cont Seizure precaution and Keppra to 250 mg bid 06/24: Remains lethargic, MRI brain pending, continue Keppra twice daily. Continue to follow clinically with supportive care 06/25: MRI brain is suggestive of bilateral thalamic lesion with wide DD. s/p LP done today, protein and Glucose are normal with normal open pressure. Gram stain and Cs are pending , cell count is pending. Per neuro, if CSF study normal need to consider Neurosurgery opinion to r/o Hydrocephalus Assessment and plan: # Acute encephalopathy with possible CVA vs encephalitis VS hydrocephalus -pt. is found in her truck unresponsive with fecal and urinary incontince: Possible postictal state following seizure -she is obtunded , and is able to move all limbs -drug screen is unremarkable -CT brain is remarkable for bilateral Hypo attenuation at thalami? -started on ASA and Lipitor -MRI brain is suggestive of bilateral thalamic lesion with wide DD: plan for LP -Started on Thiamine IV - EEG ordered today, neuro consulted -Seizure precaution, will place on empirically IV Keppra # Elevated troponin/NSTEMI type 2 - elevated cardiac enzymes -Chest pain protocol: Serial cardiac enzymes, EKG, telemetry monitoring, echocardiogram, -cardiology following and recommended medical Mx, as the mild troponin elevation that was unchanged on serial levels appears a likely nonspecific finding. # Syncope Patient found unresponsive, brought to the hospital with a CT scan showing bilateral thalamic infarcts. Further neuro assessment and management in progress: MRI brain EEG pending Echocardiogram shows left ventricular ejection fraction of 45%, but negative contrast bubble study. # Coronary artery disease history of two-vessel coronary stenting 4 years ago. Most recent stress test 6 months ago was negative. ECG on this presentation is normal with no ischemic ST or T wave changes. cardiology following, cont medical mx # DVT prophylaxis -SCD to bilateral lower extremities while in bed. Subjective Date of service: 06/25/21 Principal diagnosis: Altered mental status Interval history: Patient seen and examined. Medical records and medication list reviewed. No acute event overnight noted by the RN. Patient remains very lethargic and confused Discussed plan of care at bedside with patient's RN. Objective - Exam Narrative Exam: GENERAL: Elderly -[place] female appears to be very lethargic HEENT: Normocephalic. Atraumatic. No conjunctival congestion or icterus. Patient has moist mucous membranes. NECK: Supple. Trachea midline. CHEST/LUNGS: Clear to auscultated bilaterally, breathing nonlabored. No wheezes crackles or rhonchi. HEART/CARDIOVASCULAR: Regular in rate and rhythm. S1 and S2 positive. ABDOMEN: Abdomen is soft, nontender. Patient has normal bowel sounds. SKIN: There is no rash. Warm and dry. NEURO: Very lethargic, opens eyes with verbal command MUSCULOSKELETAL: No joint effusion or tenderness. EXTRIMITY: No edema, no cyanosis or clubbing. PSYCH: Unable to assess - Constitutional Vitals: Vital Signs - 12hr 06/25/21 06/25/21 06/25/21 04:13 08:00 14:45 Temperature 98.4 F Pulse Rate 58 L Respiratory 18 18 Rate Blood Pressure 118/61 O2 Sat by Pulse 100 97 97 Oximetry - Labs CBC & Chem 7: 06/28/21 09:01 06/28/21 09:02 HEART Score - HEART Score Troponin: Troponin T 0.312 ng/mL (0.00-0.029) H* 06/23/21 12:23
[2021-06-25 18:33] LABS: Total Cells Counted 19 /mm3
[2021-06-26] MEDS: D5W/0.9% NACL 1,000 ML IV SCH ×2 (05:38→17:50)
[2021-06-26 07:32] LABS: Basophils # (Auto) 0.1 K/mm3 (0.0-0.1); Basophils % (Auto) 0.5 % (0.0-1.8); Eosinophils % (Auto) 0.4 % (0.0-4.3); Hematocrit 36.6 % (30.3-42.9); Hemoglobin 12.3 gm/dl (10.1-14.3); Lymphocytes # (Auto) 2.3 K/mm3 (1.2-5.4); Lymphocytes % (Auto) 22.6 % (13.4-35.0); Mean Corpuscular HGB Conc 34 % (30-34); Mean Corpuscular Volume 95 fl (79-97); Monocytes # (Auto) 0.6 K/mm3 (0.0-0.8); Monocytes % (Auto) 5.8 % (0.0-7.3); Platelet Count 295 K/mm3 (140-440); Red Blood Count 3.84 M/mm3 (3.65-5.03); Red Cell Distribution Width 13.5 % (13.2-15.2)
[2021-06-26 07:53] LABS: BUN/Creatinine Ratio 8; Blood Urea Nitrogen 6 mg/dL (7-17); Calcium 8.8 mg/dL (8.4-10.2)
[2021-06-26 07:54] LABS: Hemolysis Index 2
[2021-06-26] MEDS: ENOXAPARIN 80 MG/0.8 ML INJ SUB-Q SCH (09:55)
[2021-06-26] MEDS: ASPIRIN 325 MG TAB PO SCH (09:55)
[2021-06-26] MEDS: amLODIPine 5 MG TAB PO SCH (09:56)
[2021-06-26] MEDS: levETIRAcetam 250 MG in DEXTROSE 5% IN WATER 100 ML IV SCH ×2 (11:46)
--- NOTE | 2021-06-26 20:09 | Progress Note ---
Assessment and Plan 55 YO Female with Obesity, HTN presents to ED for evaluation of altered mental status. EMS was summoned to a truck park when the patient was found in her vehicle unresponsive. The patient was found by staff at the truck park unresponsive and covered in fecal material. Daily clinical Course: 06/23: Remains lathergic and confused. drug screen is unremarkable, CT brain is remarkable for bilateral Hypo attenuation at thalami? cont on ASA and Lipitor MRI brain is pending, Started on Thiamine IV. EEG today is remarkable for mild diffuse slowing ,possibility of post ictal and or drug effect can not be excluded cont Seizure precaution and Keppra to 250 mg bid 06/24: Remains lethargic, MRI brain pending, continue Keppra twice daily. Continue to follow clinically with supportive care 06/25: MRI brain is suggestive of bilateral thalamic lesion with wide DD. s/p LP done today, protein and Glucose are normal with normal open pressure. Gram stain and Cs are pending , cell count is pending. Per neuro, if CSF study normal need to consider Neurosurgery opinion to r/o Hydrocephalus 06/26: patient was agitated earlier, placed on restraint. Cont iv fluid, cont AED. follow CSF study. has no fever or elevated white count, covid test is negative Assessment and plan: # Acute encephalopathy with possible CVA vs encephalitis VS hydrocephalus -pt. is found in her truck unresponsive with fecal and urinary incontince: Possible postictal state following seizure -she is obtunded , and is able to move all limbs -drug screen is unremarkable -CT brain is remarkable for bilateral Hypo attenuation at thalami? -started on ASA and Lipitor -MRI brain is suggestive of bilateral thalamic lesion with wide DD: plan for LP -Started on Thiamine IV - EEG ordered today, neuro consulted -Seizure precaution, will place on empirically IV Keppra # Elevated troponin/NSTEMI type 2 - elevated cardiac enzymes -Chest pain protocol: Serial cardiac enzymes, EKG, telemetry monitoring, echocardiogram, -cardiology following and recommended medical Mx, as the mild troponin elevation that was unchanged on serial levels appears a likely nonspecific finding. # Syncope Patient found unresponsive, brought to the hospital with a CT scan showing bilateral thalamic infarcts. Further neuro assessment and management in progress: MRI brain EEG pending Echocardiogram shows left ventricular ejection fraction of 45%, but negative contrast bubble study. # Coronary artery disease history of two-vessel coronary stenting 4 years ago. Most recent stress test 6 months ago was negative. ECG on this presentation is normal with no ischemic ST or T wave changes. cardiology following, cont medical mx # DVT prophylaxis -SCD to bilateral lower extremities while in bed. Subjective Date of service: 06/26/21 Principal diagnosis: Altered mental status Interval history: Patient seen and examined. Medical records and medication list reviewed. No acute event overnight noted by the RN. Patient remains very lethargic and confused was agitated, placed on restraint Discussed plan of care at bedside with patient's RN. Objective - Exam Narrative Exam: GENERAL: Elderly -[place] female appears to be very lethargic HEENT: Normocephalic. Atraumatic. No conjunctival congestion or icterus. Patient has moist mucous membranes. NECK: Supple. Trachea midline. CHEST/LUNGS: Clear to auscultated bilaterally, breathing nonlabored. No wheezes crackles or rhonchi. HEART/CARDIOVASCULAR: Regular in rate and rhythm. S1 and S2 positive. ABDOMEN: Abdomen is soft, nontender. Patient has normal bowel sounds. SKIN: There is no rash. Warm and dry. NEURO: Very lethargic, opens eyes with verbal command MUSCULOSKELETAL: No joint effusion or tenderness. EXTRIMITY: No edema, no cyanosis or clubbing. PSYCH: Unable to assess - Constitutional Vitals: Vital Signs - 12hr 06/26/21 06/26/21 09:56 11:50 Temperature 97.8 F Pulse Rate 64 68 Respiratory 18 Rate Blood Pressure 165/93 135/77 O2 Sat by Pulse 98 Oximetry - Labs CBC & Chem 7: 06/28/21 09:01 06/28/21 09:02 Labs: Abnormal lab results 06/26/21 06/26/21 Range/Units 07:11 07:11 Seg Neutrophils % 70.7 H (40.0-70.0) % BUN 6 L (7-17) mg/dL Glucose 231 H (65-100) mg/dL HEART Score - HEART Score Troponin: Troponin T 0.312 ng/mL (0.00-0.029) H* 06/23/21 12:23
--- NOTE | 2021-06-26 20:20 | Progress Note ---
Assessment and Plan Assessment: Altered mental status Bilateral thalamic infarcts No evidence of afib on tele Mild cardiomyopathy LVEF 45% this admission Previous LVEF in [place] reported to be 55% Coronary artery disease s/p 2 vessel PCI 4 years ago Stress test 6 months ago reportedly normal Non-specific troponin abnormality Trend is not consistent with ACS No signs or symptoms of ACS Recommendations: Continue aspirin, amlodipine and lipitor Start toprol XL 25 mg daily Continue conservative cardiac management Subjective Date of service: 06/26/21 Principal diagnosis: Altered mental status Interval history: Patient denies chest pain or shortness of breath. No events on tele. Objective Vital Signs Temp Pulse Resp BP BP Pulse Ox 06/26/21 11:50 97.8 F 68 18 135/77 98 06/26/21 09:56 64 165/93 06/26/21 08:08 97.8 F 64 18 165/93 90 06/26/21 08:00 98 06/26/21 03:35 99.0 F 83 18 149/77 98 06/26/21 01:16 98.9 F 100 H 20 162/109 91 - Physical Examination General: No Apparent Distress, Other (Mildly confused) HEENT: Positive: PERRL Neck: Positive: neck supple Cardiac: Positive: Reg Rate and Rhythm Lungs: Positive: Normal Exam Neuro: Positive: Grossly Intact Abdomen: Positive: Soft Skin: Positive: Clear Extremities: Absent: edema - Labs and Meds CBC 06/26/21 Range/Units 07:11 WBC 10.2 (4.5-11.0) K/mm3 RBC 3.84 (3.65-5.03) M/mm3 Hgb 12.3 (10.1-14.3) gm/dl Hct 36.6 (30.3-42.9) % Plt Count 295 (140-440) K/mm3 Lymph # (Auto) 2.3 (1.2-5.4) K/mm3 Scurry # (Auto) 0.6 (0.0-0.8) K/mm3 Eos # (Auto) 0.0 (0.0-0.4) K/mm3 Baso # (Auto) 0.1 (0.0-0.1) K/mm3 Comprehensive Metabolic Panel 06/26/21 Range/Units 07:11 Sodium 142 (137-145) mmol/L Potassium 3.6 (3.6-5.0) mmol/L Chloride 106.2 (98-107) mmol/L Carbon Dioxide 23 (22-30) mmol/L BUN 6 L (7-17) mg/dL Creatinine 0.8 (0.6-1.2) mg/dL Glucose 231 H (65-100) mg/dL Calcium 8.8 (8.4-10.2) mg/dL
[2021-06-27] MEDS: levETIRAcetam 250 MG in DEXTROSE 5% IN WATER 100 ML IV SCH ×3 (00:22→23:28)
[2021-06-27] MEDS ORDERED: hydrALAZINE 20 MG/1 ML INJ IV ONE (08:39)
[2021-06-27] MEDS ORDERED: hydrALAZINE 10 MG TAB PO PRN (09:07)
[2021-06-27] MEDS: METOPROLOL SUCCINATE XL 25 MG TAB PO SCH (09:12)
[2021-06-27] MEDS: amLODIPine 5 MG TAB PO SCH (09:13)
[2021-06-27] MEDS: ASPIRIN 325 MG TAB PO SCH (09:13)
--- NOTE | 2021-06-27 09:29 | Progress Note ---
Assessment and Plan Assessment: Altered mental status Bilateral thalamic infarcts No evidence of afib on tele so far Mild cardiomyopathy LVEF 45% this admission Previous LVEF in [place] reported to be 55% Coronary artery disease s/p 2 vessel PCI 4 years ago Stress test 6 months ago reportedly normal Non-specific troponin abnormality Trend is not consistent with ACS No signs or symptoms of ACS Recommendations: Continue aspirin, amlodipine, Toprol and lipitor Continue conservative cardiac management for the time being Subjective Date of service: 06/27/21 Principal diagnosis: Altered mental status Interval history: Patient denies chest pain or shortness of breath. No events on tele. Patient remains very lethargic. Patient is in soft wrist restraints. Objective Vital Signs Temp Pulse Resp BP BP Pulse Ox 06/27/21 09:12 80 177/102 06/27/21 08:29 98.0 F 80 16 177/102 100 06/27/21 04:50 97.3 F L 74 18 170/93 99 06/27/21 00:26 98.4 F 97 H 18 154/79 100 06/26/21 22:43 100 06/26/21 21:54 73 06/26/21 21:51 178/99 06/26/21 20:24 98.3 F 94 H 18 180/98 100 06/26/21 11:50 97.8 F 68 18 135/77 98 06/26/21 09:56 64 165/93 - Physical Examination General: No Apparent Distress, Other (Mildly confused) HEENT: Positive: PERRL Neck: Positive: neck supple Cardiac: Positive: Reg Rate and Rhythm Lungs: Positive: Normal Exam Neuro: Positive: Grossly Intact Abdomen: Positive: Soft Skin: Positive: Clear Extremities: Absent: edema
[2021-06-27] MEDS ORDERED: cloNIDine TTS 0.2 MG/24 HR PATCH TD SCH (12:00)
[2021-06-27] MEDS: D5W/0.9% NACL 1,000 ML IV SCH (12:30)
[2021-06-27] MEDS: ENOXAPARIN 40 MG/0.4 ML INJ SUB-Q SCH (21:39)
--- NOTE | 2021-06-27 21:45 | Progress Note ---
Assessment and Plan 55 YO Female with Obesity, HTN presents to ED for evaluation of altered mental status. EMS was summoned to a truck park when the patient was found in her vehicle unresponsive. The patient was found by staff at the truck park unresponsive and covered in fecal material. Daily clinical Course: 06/23: Remains lathergic and confused. drug screen is unremarkable, CT brain is remarkable for bilateral Hypo attenuation at thalami? cont on ASA and Lipitor MRI brain is pending, Started on Thiamine IV. EEG today is remarkable for mild diffuse slowing ,possibility of post ictal and or drug effect can not be excluded cont Seizure precaution and Keppra to 250 mg bid 06/24: Remains lethargic, MRI brain pending, continue Keppra twice daily. Continue to follow clinically with supportive care 06/25: MRI brain is suggestive of bilateral thalamic lesion with wide DD. s/p LP done today, protein and Glucose are normal with normal open pressure. Gram stain and Cs are pending , cell count is pending. Per neuro, if CSF study normal need to consider Neurosurgery opinion to r/o Hydrocephalus 06/26: patient was agitated earlier, placed on restraint. Cont iv fluid, cont AED. follow CSF study. has no fever or elevated white count, covid test is negative 06/27: CSF study normal, HSV PCR pending, mental status improved - tolerating diet but very confused. Will consult ID for possible encephalitis, and also NS for possible hydrocephalus. Assessment and plan: # Acute encephalopathy with possible CVA vs encephalitis VS hydrocephalus -pt. is found in her truck unresponsive with fecal and urinary incontince: Possible postictal state following seizure -she is obtunded , and is able to move all limbs -drug screen is unremarkable -CT brain is remarkable for bilateral Hypo attenuation at thalami? -started on ASA and Lipitor -MRI brain is suggestive of bilateral thalamic lesion with wide DD: plan for LP -Started on Thiamine IV - EEG ordered today, neuro consulted -Seizure precaution, will place on empirically IV Keppra # Elevated troponin/NSTEMI type 2 - elevated cardiac enzymes -Chest pain protocol: Serial cardiac enzymes, EKG, telemetry monitoring, echoc ardiogram, -cardiology following and recommended medical Mx, as the mild troponin elevation that was unchanged on serial levels appears a likely nonspecific finding. # Syncope Patient found unresponsive, brought to the hospital with a CT scan showing bilateral thalamic infarcts. Further neuro assessment and management in progress: MRI brain EEG pending Echocardiogram shows left ventricular ejection fraction of 45%, but negative contrast bubble study. # Coronary artery disease history of two-vessel coronary stenting 4 years ago. Most recent stress test 6 months ago was negative. ECG on this presentation is normal with no ischemic ST or T wave changes. cardiology following, cont medical mx # DVT prophylaxis -SCD to bilateral lower extremities while in bed. Subjective Date of service: 06/27/21 Principal diagnosis: Altered mental status Interval history: Patient seen and examined. Medical records and medication list reviewed. No acute event overnight noted by the RN. Patient remains very confused but more alert remains on restraint as wants to pull out IV line Discussed plan of care at bedside with patient's RN. passed swallow eval, initiated on diet Objective - Exam Narrative Exam: GENERAL: Elderly -[place] female appears to be very confused but more alert HEENT: Normocephalic. Atraumatic. No conjunctival congestion or icterus. Patient has moist mucous membranes. NECK: Supple. Trachea midline. CHEST/LUNGS: Clear to auscultated bilaterally, breathing nonlabored. No wheezes crackles or rhonchi. HEART/CARDIOVASCULAR: Regular in rate and rhythm. S1 and S2 positive. ABDOMEN: Abdomen is soft, nontender. Patient has normal bowel sounds. SKIN: There is no rash. Warm and dry. NEURO: opens eyes with verbal command, no focal deficit MUSCULOSKELETAL: No joint effusion or tenderness. EXTRIMITY: No edema, no cyanosis or clubbing. PSYCH: Unable to assess -confused - Constitutional Vitals: Vital Signs - 12hr 06/27/21 06/27/21 06/27/21 10:00 11:17 13:20 Temperature 98.3 F Pulse Rate 52 L 52 L Respiratory 16 Rate Blood Pressure 169/89 169/89 O2 Sat by Pulse 100 100 Oximetry 06/27/21 06/27/21 16:02 19:33 Temperature 97.6 F 98.5 F Pulse Rate 55 L Respiratory 14 16 Rate Blood Pressure 147/82 156/92 O2 Sat by Pulse 100 Oximetry - Labs CBC & Chem 7: 06/28/21 09:01 06/28/21 09:02 HEART Score - HEART Score Troponin: Troponin T 0.312 ng/mL (0.00-0.029) H* 06/23/21 12:23
[2021-06-28] MEDS: D5W/0.9% NACL 1,000 ML IV SCH (02:45)
[2021-06-28 09:13] LABS: Hematocrit 34.4 % (30.3-42.9); Hemoglobin 11.8 gm/dl (10.1-14.3); Mean Corpuscular HGB Conc 34 % (30-34); Mean Corpuscular Volume 95 fl (79-97); Platelet Count 262 K/mm3 (140-440); Red Blood Count 3.63 M/mm3 (3.65-5.03); Red Cell Distribution Width 13.5 % (13.2-15.2)
[2021-06-28 09:37] LABS: BUN/Creatinine Ratio 7; Blood Urea Nitrogen 5 mg/dL (7-17); Calcium 9.1 mg/dL (8.4-10.2); Hemolysis Index 5
[2021-06-28] MEDS: METOPROLOL SUCCINATE XL 25 MG TAB PO SCH (09:56)
[2021-06-28] MEDS: amLODIPine 5 MG TAB PO SCH (09:56)
[2021-06-28] MEDS: ASPIRIN 325 MG TAB PO SCH (09:56)
[2021-06-28] MEDS: levETIRAcetam 500 MG TAB PO SCH ×2 (09:57→22:06)
--- NOTE | 2021-06-28 11:11 | Progress Note ---
Assessment and Plan Assessment and Plan 55 YO Female with Obesity, HTN presents to ED for evaluation. Patient is confused with diminished cognition at the time my evaluation is unable to provide history. Patient history taken from EMS staff, ED staff. EMS was summoned to a truck park when the patient was found in her vehicle unresponsive. 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 The patient was found by staff at the truck park unresponsive and covered in fecal material. - Patient Problems # Acute/Subacute encephalopathy -pt. is found in her truck unresponsive with fecal and urinary incontince -she is obtunded , and is able to move all limbs -Seizure can not be excluded -drug screen is unremarkable -CT brain is remarkable for bilateral Hypo attenuation at thalami? -started on ASA and Lipitor -MRI brain is suggestive of bilateral thalamic lesion with wide DD -Start on Thiamine IV - EEG today is remarkable for mild diffuse slowing ,possibility of post ictal and or drug effect can not be excluded -Seizure precaution -cut down Keppra to 250 mg bid -According to pt. today she had Hx of seizure ? but not on medication she is with hx of CVD and stent -she is still sluggish to respond and with no focal neurological deficit other than drowsiness and slurred speech -MRI brain is noted - LP showed 1 wbcs with normal glucose and protein , with no sign to suggest encephalitis -might need to consider NS openion ? third ventricle obstruction ?? - will repeat MRI brain with gd -send for ACH abs titer -need PT /ST evaluate # NSTEMI (non-ST elevated myocardial infarction) - elevated cardiac enzymes -Chest pain protocol: Serial cardiac enzymes, EKG, telemetry monitoring, therapeutic anticoagulation, echocardiogram, D-dimer # DVT prophylaxis -SCD to bilateral lower extremities while in bed, continue therapeutic anticoagulation will follow Subjective Date of service: 06/28/21 Principal diagnosis: Altered mental status Interval history: she is slightly better today move all limbs, follow simple command , no facial asymmetry , still drowsy and is with slurred speech MRI brain is same like CT ? bilateral thalamic hypodensity ? r/o anoxia? 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 placed on Keppra 250 mg bid and thiamine EEG is remarkable for diffuse slowing with possibility of drug effect vs post ictal can not be excluded UDS is unremarkable Objective - Vital Sign Vital Signs - 12hr 06/27/21 06/28/21 06/28/21 23:38 04:03 07:58 Temperature 100.0 F H 97.5 F L 97.9 F Pulse Rate 53 L 81 Respiratory 16 16 18 Rate Blood Pressure 187/97 195/118 190/120 O2 Sat by Pulse 100 100 Oximetry - General Apperance Constitutional: comfortable - EENT EENT: PERRL, mucous membranes moist - Respiratory Respiratory: lungs clear, rhonchi - Cardiovascular Cardiovascular: regular rate, normal S1, normal S2 Extremities: no peripheral edema bilat, no clubbing, cyanosis - Gastrointestinal Gastrointestinal: normoactive bowel sounds - Integumentary Integumentary: normal - Neurologic Cranial nerve examination: PERRL, EOMI, other (bilateral eyes drooping, no facial asymmetry , slurred speech ) Detailed motor examination: grossly full strength in - Laboratory Findings CBC and BMP: 06/28/21 09:01 06/28/21 09:02 Abnormal Lab Findings: Abnormal Labs 06/21/21 06/21/21 06/21/21 14:45 14:45 14:45 WBC 11.2 H RBC Hgb 14.4 H Hct 44.3 H Seg Neutrophils % INR 0.86 L APTT 24.1 L D-Dimer BUN Glucose 203 H POC Glucose Lactic Acid Alkaline Phosphatase 135 H Ammonia Total Creatine Kinase 173 H Troponin T 0.311 H* Cholesterol 286 H LDL Cholesterol Direct 178 H HDL Cholesterol 83 H Urine Blood Salicylates Acetaminophen 06/21/21 06/21/21 06/21/21 14:45 14:45 14:45 WBC RBC Hgb Hct Seg Neutrophils % INR APTT D-Dimer BUN Glucose POC Glucose Lactic Acid < 0.20 L Alkaline Phosphatase Ammonia 19.0 L Total Creatine Kinase Troponin T Cholesterol LDL Cholesterol Direct HDL Cholesterol Urine Blood Salicylates < 0.3 L Acetaminophen 06/21/21 06/21/21 06/21/21 14:45 14:45 17:44 WBC RBC Hgb Hct Seg Neutrophils % INR APTT D-Dimer 815.68 H BUN Glucose POC Glucose Lactic Acid Alkaline Phosphatase Ammonia Total Creatine Kinase Troponin T Cholesterol LDL Cholesterol Direct HDL Cholesterol Urine Blood Small A Salicylates Acetaminophen 5.0 L 06/21/21 06/22/21 06/23/21 23:16 18:41 00:13 WBC RBC Hgb Hct Seg Neutrophils % INR APTT D-Dimer BUN Glucose POC Glucose Lactic Acid Alkaline Phosphatase Ammonia Total Creatine Kinase Troponin T 0.395 H* D 0.340 H* 0.307 H* Cholesterol LDL Cholesterol Direct HDL Cholesterol Urine Blood Salicylates Acetaminophen 06/23/21 06/23/21 06/26/21 12:23 12:23 07:11 WBC RBC Hgb Hct Seg Neutrophils % 70.7 H INR APTT D-Dimer BUN Glucose 121 H POC Glucose Lactic Acid Alkaline Phosphatase Ammonia Total Creatine Kinase Troponin T 0.312 H* Cholesterol LDL Cholesterol Direct HDL Cholesterol Urine Blood Salicylates Acetaminophen 06/26/21 06/27/21 06/28/21 07:11 23:39 05:51 WBC RBC Hgb Hct Seg Neutrophils % INR APTT D-Dimer BUN 6 L Glucose 231 H POC Glucose 231 H 150 H Lactic Acid Alkaline Phosphatase Ammonia Total Creatine Kinase Troponin T Cholesterol LDL Cholesterol Direct HDL Cholesterol Urine Blood Salicylates Acetaminophen 06/28/21 06/28/21 09:01 09:02 WBC RBC 3.63 L Hgb Hct Seg Neutrophils % INR APTT D-Dimer BUN 5 L Glucose 208 H POC Glucose Lactic Acid Alkaline Phosphatase Ammonia Total Creatine Kinase Troponin T Cholesterol LDL Cholesterol Direct HDL Cholesterol Urine Blood Salicylates Acetaminophen
--- NOTE | 2021-06-28 12:01 | Progress Note ---
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 Further neuro assessment and management in progress. Echocardiogram shows left ventricular ejection fraction of 45%, but negative contrast bubble study. Conservative cardiac management. (2) Coronary artery disease Current Visit: Yes Status: Acute Plan to address problem: Patient has a history of complex coronary artery disease with two-vessel coronary stenting 4 years ago at a hospital in [place]. Most recent follow-up stress test 6 months ago was negative, patient was reported to have exercised for 6 minutes of Parveen protocol. We will continue guideline directed medical therapy for coronary artery disease, and continue follow-up as indicated. Further cardiac evaluation and management will depend on clinical course. Subjective Date of service: 06/28/21 Principal diagnosis: Altered mental status Interval history: Patient is comfortable, no acute distress, no new cardiac events reported. Objective Vital Signs Temp Pulse Resp BP Pulse Ox 06/28/21 07:58 97.9 F 18 190/120 06/28/21 04:03 97.5 F L 81 16 195/118 100 06/27/21 23:38 100.0 F H 53 L 16 187/97 100 06/27/21 22:00 100 06/27/21 19:33 98.5 F 16 156/92 06/27/21 16:02 97.6 F 55 L 14 147/82 100 06/27/21 13:20 52 L 169/89 - Physical Examination General: No Apparent Distress, Other (Mildly confused) HEENT: Positive: PERRL Neck: Positive: neck supple Cardiac: Positive: Reg Rate and Rhythm Lungs: Positive: clear to auscultation Neuro: Positive: Grossly Intact Abdomen: Positive: Soft Skin: Positive: Clear Extremities: Absent: edema - Labs and Meds CBC 06/28/21 Range/Units 09:01 WBC 7.8 (4.5-11.0) K/mm3 RBC 3.63 L (3.65-5.03) M/mm3 Hgb 11.8 (10.1-14.3) gm/dl Hct 34.4 (30.3-42.9) % Plt Count 262 (140-440) K/mm3 Comprehensive Metabolic Panel 06/28/21 Range/Units 09:02 Sodium 142 (137-145) mmol/L Potassium 3.7 (3.6-5.0) mmol/L Chloride 105.9 (98-107) mmol/L Carbon Dioxide 26 (22-30) mmol/L BUN 5 L (7-17) mg/dL Creatinine 0.7 (0.6-1.2) mg/dL Glucose 208 H (65-100) mg/dL Calcium 9.1 (8.4-10.2) mg/dL
--- NOTE | 2021-06-28 12:47 | Consultation ---
History of Present Illness - Reason for Consult Consult date: 06/28/21 Reason for consult: mental health evaluation - Chief Complaint Chief complaint: confused - History of Present Psychiatric Illness PER NOTE: Patient is 55 years old female with history of hypertension. 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 According to the EMS report patient was last time seen normal on Monday, 2 days ago. EMS stated that patient was found unresponsive with urinary and fecal incontinence. Upon arrival to the ER patient is obtunded and only responding to painful stimuli. Patient is maintaining her oxygen saturation to 100% on room air. Unable to obtain more information at this moment. The patient is a 55 year old female with unknown psychiatric history who was ad mitted with AMS. The patient was seen today. She is lethargic, she is easily aroused but goes back to sleep. The patient unable to participate in assessment at this time. PAST PSYCHIATRIC HISTORY PAST MEDICAL HISTORY: Family Psychiatric History: None reported or documented SOCIAL HISTORY REVIEW OF SYSTEMS MENTAL STATUS EXAMINATION Assessment and Plan (1) (2) Current Visit: No Status: Acute Treatment Plan Risks, benefits and alternatives of medications discussed with the patient, questions answered and consent obtained from patient. PSYCHOTHERAPY: Supportive psychotherapy provided MEDICAL: Per primary team DELIRIUM PRECAUTIONS: Please re-orient patient frequently, keep lights on during the day, and minimize benzodiazepines and opiates as these medications could worsen patient's confusion. ADMINISTRATIVE SERVICES SPECIALIST: non indicated DISPOSITION: Do not recommend acute inpatient psychiatric hospitalization at thi s time. FOLLOW-UP: will sign off. Thank you for the consult. Please contact with any questions and/or concerns. Case staffed with Dr. Murray Medications and Allergies Allergies Allergy/AdvReac Type Severity Reaction Status Date / Time No Known Allergies Allergy Verified 06/28/21 09:36 Home Medications Medication Instructions Recorded Confirmed Last Taken Type Clopidogrel [Plavix] 75 mg PO QDAY 06/21/21 06/28/21 Unknown History Cyanocobalamin (Vitamin B-12) 1,000 mcg SL TID 06/28/21 06/28/21 Unknown History [Vitamin B-12] Losartan [Cozaar] 100 mg PO QDAY 06/28/21 06/28/21 Unknown History Metoprolol Xl [Metoprolol 50 mg PO QDAY 06/28/21 06/28/21 Unknown History SUCCINATE ER TAB] Ranolazine ER [Ranexa ER] 500 mg PO QDAY 06/28/21 06/28/21 Unknown History amLODIPine [Norvasc] 5 mg PO DAILY 06/28/21 06/28/21 Unknown History Active Meds: Active Medications Acetaminophen (Acetaminophen 325 Mg Tab) 650 mg PO Q6H PRN PRN Reason: Pain, Mild (1-3) Last Admin: 06/26/21 09:55 Dose: 650 mg Amlodipine Besylate (Amlodipine 5 Mg Tab) 5 mg PO QDAY [facility] Last Admin: 06/28/21 09:56 Dose: 5 mg Aspirin (Aspirin 325 Mg Tab) 325 mg PO QDAY [facility] Last Admin: 06/28/21 09:56 Dose: 325 mg Atorvastatin Calcium (Atorvastatin 40 Mg Tab) 40 mg PO QHS [facility] Last Admin: 06/27/21 21:39 Dose: 40 mg Bisacodyl (Bisacodyl 10 Mg Rect Supp) 10 mg ID QDAY PRN PRN Reason: Constipation Clonidine HCl (Clonidine Tts 0.2 Mg/24 Hr Patch) 0.2 mg TD Oshea [facility] Last Admin: 06/27/21 13:20 Dose: 0.2 mg Enoxaparin Sodium (Enoxaparin 40 Mg/0.4 Ml Inj) 40 mg SUB-Q QDAY@2200 [facility]; Protocol Last Admin: 06/27/21 21:39 Dose: 40 mg Hydralazine HCl (Hydralazine 10 Mg Tab) 10 mg PO Q4H PRN PRN Reason: hypertension Last Admin: 06/28/21 10:03 Dose: 10 mg Hydromorphone HCl (Hydromorphone 1 Mg/1 Ml Inj) 0.5 mg IV Q23H PRN PRN Reason: Pain , Severe (7-10) Levetiracetam (Levetiracetam 500 Mg Tab) 250 mg PO BID [facility] Last Admin: 06/28/21 09:57 Dose: 250 mg Magnesium Hydroxide (Magnesium Hydroxide (Mom) Oral Liqd Udc) 30 ml PO Q4H PRN PRN Reason: Constipation Metoclopramide HCl (Metoclopramide 10 Mg Tab) 10 mg PO Q6H PRN PRN Reason: Nausea And Vomiting Metoprolol Succinate (Metoprolol Succinate Xl 25 Mg Tab) 25 mg PO QDAY [facility] Last Admin: 06/28/21 09:56 Dose: 25 mg Nitroglycerin (Nitroglycerin 0.4 Mg Tab Subl) 0.4 mg SL Q5M PRN PRN Reason: Chest Pain Ondansetron HCl (Ondansetron 4 Mg/2 Ml Inj) 4 mg IV Q8H PRN PRN Reason: Nausea And Vomiting Oxycodone/Acetaminophen (Oxycodone /Acetaminophen 5-325mg Tab) 1 tab PO Q16H PRN PRN Reason: Pain, Moderate (4-6) Promethazine HCl (Promethazine 25 Mg Rect Supp) 25 mg ID Q6H PRN PRN Reason: Nausea And Vomiting Sodium Chloride (Sodium Chloride 0.9% 10 Ml Flush Syringe) 10 ml IV PRN PRN PRN Reason: LINE FLUSH Last Admin: 06/27/21 21:39 Dose: 10 ml Tramadol HCl (Tramadol 50 Mg Tab) 50 mg PO Q6H PRN PRN Reason: Pain, Moderate (4-6) Mental Status Exam - Vital signs Last Vital Signs Temp 97.9 F 06/28/21 07:58 Pulse 81 06/28/21 04:03 Resp 18 06/28/21 07:58 BP 190/120 06/28/21 07:58 Pulse Ox 100 06/28/21 04:03 Results Result Diagrams: 06/28/21 09:01 06/28/21 09:02 Abnormal lab results 06/27/21 06/28/21 06/28/21 Range/Units 23:39 05:51 09:01 RBC 3.63 L (3.65-5.03) M/mm3 BUN (7-17) mg/dL Glucose (65-100) mg/dL POC Glucose 231 H 150 H (70-105) mg/dL 06/28/21 06/28/21 Range/Units 09:02 11:54 RBC (3.65-5.03) M/mm3 BUN 5 L (7-17) mg/dL Glucose 208 H (65-100) mg/dL POC Glucose 178 H (70-105) mg/dL All other labs normal.
--- NOTE | 2021-06-28 16:58 | Consultation ---
History of Present Illness - Reason for Consult Consult date: 06/28/21 - History of Present Illness 55-year-old female past medical history obesity, hypertension presented to hospital with altered mental status. She was noted to be found in her vehicle unresponsive. She was also found to be covered in her own feces, and she was brought to the hospital with concern for stroke. Afebrile since admission with a white count of 11.2. CSF with 2 WBC. Normal renal function. Imaging personally reviewed: Brain MRI: Likely Wernicke encephalopathy Past History Past Medical History: CAD, hypertension Past Surgical History: No surgical history, Other (Unable to obtain) Social history: no significant social history, single, other (Unable to obtain) Family history: no significant family history, other (Unable to obtain) Medications and Allergies Allergies Allergy/AdvReac Type Severity Reaction Status Date / Time No Known Allergies Allergy Verified 06/28/21 09:36 Home Medications Medication Instructions Recorded Confirmed Last Taken Type Clopidogrel [Plavix] 75 mg PO QDAY 06/21/21 06/28/21 Unknown History Cyanocobalamin (Vitamin B-12) 1,000 mcg SL TID 06/28/21 06/28/21 Unknown History [Vitamin B-12] Losartan [Cozaar] 100 mg PO QDAY 06/28/21 06/28/21 Unknown History Metoprolol Xl [Metoprolol 50 mg PO QDAY 06/28/21 06/28/21 Unknown History SUCCINATE ER TAB] Ranolazine ER [Ranexa ER] 500 mg PO QDAY 06/28/21 06/28/21 Unknown History amLODIPine [Norvasc] 5 mg PO DAILY 06/28/21 06/28/21 Unknown History Active Meds: Active Medications Acetaminophen (Acetaminophen 325 Mg Tab) 650 mg PO Q6H PRN PRN Reason: Pain, Mild (1-3) Last Admin: 06/26/21 09:55 Dose: 650 mg Amlodipine Besylate (Amlodipine 5 Mg Tab) 10 mg PO QDAY [facility] Aspirin (Aspirin 325 Mg Tab) 81 mg PO QDAY [facility] Atorvastatin Calcium (Atorvastatin 40 Mg Tab) 40 mg PO QHS [facility] Last Admin: 06/27/21 21:39 Dose: 40 mg Bisacodyl (Bisacodyl 10 Mg Rect Supp) 10 mg PA QDAY PRN PRN Reason: Constipation Clonidine HCl (Clonidine Tts 0.2 Mg/24 Hr Patch) 0.2 mg TD Oshea [facility] Last Admin: 06/27/21 13:20 Dose: 0.2 mg Clopidogrel Bisulfate (Clopidogrel 75 Mg Tab) 75 mg PO QDAY [facility] Enoxaparin Sodium (Enoxaparin 40 Mg/0.4 Ml Inj) 40 mg SUB-Q QDAY@2200 [facility]; Protocol Last Admin: 06/27/21 21:39 Dose: 40 mg Hydralazine HCl (Hydralazine 10 Mg Tab) 10 mg PO Q4H PRN PRN Reason: hypertension Last Admin: 06/28/21 10:03 Dose: 10 mg Hydralazine HCl (Hydralazine 100 Mg Tab) 100 mg PO TID [facility] Hydromorphone HCl (Hydromorphone 1 Mg/1 Ml Inj) 0.5 mg IV Q23H PRN PRN Reason: Pain , Severe (7-10) Levetiracetam (Levetiracetam 500 Mg Tab) 250 mg PO BID [facility] Last Admin: 06/28/21 09:57 Dose: 250 mg Magnesium Hydroxide (Magnesium Hydroxide (Mom) Oral Liqd Udc) 30 ml PO Q4H PRN PRN Reason: Constipation Metoclopramide HCl (Metoclopramide 10 Mg Tab) 10 mg PO Q6H PRN PRN Reason: Nausea And Vomiting Metoprolol Succinate (Metoprolol Succinate Xl 25 Mg Tab) 25 mg PO QDAY [facility] Last Admin: 06/28/21 09:56 Dose: 25 mg Nitroglycerin (Nitroglycerin 0.4 Mg Tab Subl) 0.4 mg SL Q5M PRN PRN Reason: Chest Pain Ondansetron HCl (Ondansetron 4 Mg/2 Ml Inj) 4 mg IV Q8H PRN PRN Reason: Nausea And Vomiting Oxycodone/Acetaminophen (Oxycodone /Acetaminophen 5-325mg Tab) 1 tab PO Q16H PRN PRN Reason: Pain, Moderate (4-6) Promethazine HCl (Promethazine 25 Mg Rect Supp) 25 mg PA Q6H PRN PRN Reason: Nausea And Vomiting Ranolazine (Ranolazine Er 500 Mg Tab 12hr) 500 mg PO QDAY [facility] Sodium Chloride (Sodium Chloride 0.9% 10 Ml Flush Syringe) 10 ml IV PRN PRN PRN Reason: LINE FLUSH Last Admin: 06/27/21 21:39 Dose: 10 ml Tramadol HCl (Tramadol 50 Mg Tab) 50 mg PO Q6H PRN PRN Reason: Pain, Moderate (4-6) Review of Systems ROS unobtainable: due to mental status Physical Examination - Physical Exam Narrative exam: Physical Exam: Constitutional: Lethargic, confused Head, Ears, Nose: Normocephalic, atraumatic. External ears, nose normal Eyes: Conjunctivae/corneas clear. No icterus. No ptosis. Neck: Supple, no meningeal signs Oral: dentition fair, no thrush Cardiovascular: S1, S2 normal. Respiratory: Good air entry, clear to auscultation bilaterally GI: Soft, non-tender; bowel sounds normal. No peritoneal signs. Musculoskeletal: No pedal edema, no cyanosis. Skin: No rash or abscess Hem/Lymphatic: No palpable cervical or supraclavicular nodes. No lymphangitis Psych: Lethargic Neurological: Lethargic - Constitutional Vitals: Vital Signs Temp Pulse Resp BP Pulse Ox 97.9 F 81 18 190/120 100 06/28/21 07:58 06/28/21 04:03 06/28/21 07:58 06/28/21 07:58 06/28/21 10:00 Temperature -Last 24 Hours Temperature 97.9 F Temperature 97.5 F Temperature 100.0 F Temperature 98.5 F Results - Labs CBC & Chem 7: 06/28/21 09:01 06/28/21 09:02 Labs: Abnormal lab results 06/27/21 06/28/21 06/28/21 Range/Units 23:39 05:51 09:01 RBC 3.63 L (3.65-5.03) M/mm3 BUN (7-17) mg/dL Glucose (65-100) mg/dL POC Glucose 231 H 150 H (70-105) mg/dL 06/28/21 06/28/21 06/28/21 Range/Units 09:02 11:54 16:47 RBC (3.65-5.03) M/mm3 BUN 5 L (7-17) mg/dL Glucose 208 H (65-100) mg/dL POC Glucose 178 H 110 H (70-105) mg/dL Assessment and Plan Cultures: Blood culture 06/21/2021 no growth so far CSF culture 06/25/2021 no growth so far Cryptococcal antigen negative A/P: 55-year-old female past medical history obesity presented to hospital with: #Acute encephalopathy: MRI with possible Wernicke encephalopathy. Differential was raised for encephalitis, however with 2 WBC on LP, infectious etiology is unlikely. Recs: -Stop all anti-infectives Thank you for the consult, we will continue to follow. Infectious disease will sign off. Please call with questions. Jeffrey Krause MD [facility], [place] [facility] O: [phone] F: [phone]
--- NOTE | 2021-06-28 17:18 | Progress Note ---
Assessment and Plan 55 YO Female with Obesity, HTN presents to ED for evaluation of altered mental status. EMS was summoned to a truck park when the patient was found in her vehicle unresponsive. The patient was found by staff at the truck park unresponsive and covered in fecal material. Daily clinical Course: 06/23: Remains lathergic and confused. drug screen is unremarkable, CT brain is remarkable for bilateral Hypo attenuation at thalami? cont on ASA and Lipitor MRI brain is pending, Started on Thiamine IV. EEG today is remarkable for mild diffuse slowing ,possibility of post ictal and or drug effect can not be excluded cont Seizure precaution and Keppra to 250 mg bid 06/24: Remains lethargic, MRI brain pending, continue Keppra twice daily. Continue to follow clinically with supportive care 06/25: MRI brain is suggestive of bilateral thalamic lesion with wide DD. s/p LP done today, protein and Glucose are normal with normal open pressure. Gram stain and Cs are pending , cell count is pending. Per neuro, if CSF study normal need to consider Neurosurgery opinion to r/o Hydrocephalus 06/26: patient was agitated earlier, placed on restraint. Cont iv fluid, cont AED. follow CSF study. has no fever or elevated white count, covid test is negative 06/27: CSF study normal, HSV PCR pending, mental status improved - tolerating diet but very confused. Will consult ID for possible encephalitis, and also NS for possible hydrocephalus. 06/28: Mental status i,proving, more alert but remains confused. will monitor off restraint, d/c iv fluid as tolerating diet. discussed with NS and dr jim will see her. ID signed off as no infectious source so far, CSF study negative. Plan to repeat MRI brain. Assessment and plan: # Acute encephalopathy with possible CVA vs encephalitis VS hydrocephalus -pt. is found in her truck unresponsive with fecal and urinary incontince: Possible postictal state following seizure ? -drug screen is unremarkable -CT brain is remarkable for bilateral Hypo attenuation at thalami? -started on ASA and Lipitor -MRI brain is suggestive of bilateral thalamic lesion with wide DD: s/p LP, CSF with normal findings -Started on Thiamine IV - EEG w/o any epileptic wave, neuro following -Seizure precaution, will place on empirically IV Keppra # Elevated troponin/NSTEMI type 2 - elevated cardiac enzymes -Chest pain protocol: Serial cardiac enzymes, EKG, telemetry monitoring, echocardiogram, -cardiology following and recommended medical Mx, as the mild troponin elevation that was unchanged on serial levels appears a likely nonspecific finding. # Syncope Patient found unresponsive, brought to the hospital with a CT scan showing bilateral thalamic infarcts. Further neuro assessment and management in progress: MRI brain EEG pending Echocardiogram shows left ventricular ejection fraction of 45%, but negative contrast bubble study. # Coronary artery disease history of two-vessel coronary stenting 4 years ago. Most recent stress test 6 months ago was negative. ECG on this presentation is normal with no ischemic ST or T wave changes. cardiology following, cont medical mx # DVT prophylaxis -SCD to bilateral lower extremities while in bed. Subjective Date of service: 06/28/21 Principal diagnosis: Altered mental status Interval history: Patient seen and examined. Medical records and medication list reviewed. No acute event overnight noted by the RN. Patient remains very confused but more alert Discussed plan of care at bedside with patient's RN. tolerating diet Objective - Exam Narrative Exam: GENERAL: Elderly -Martiniquais female appears to be very confused but more alert HEENT: Normocephalic. Atraumatic. No conjunctival congestion or icterus. Patient has moist mucous membranes. NECK: Supple. Trachea midline. CHEST/LUNGS: Clear to auscultated bilaterally, breathing nonlabored. No wheezes crackles or rhonchi. HEART/CARDIOVASCULAR: Regular in rate and rhythm. S1 and S2 positive. ABDOMEN: Abdomen is soft, nontender. Patient has normal bowel sounds. SKIN: There is no rash. Warm and dry. NEURO: opens eyes with verbal command, no focal deficit MUSCULOSKELETAL: No joint effusion or tenderness. EXTRIMITY: No edema, no cyanosis or clubbing. PSYCH: Unable to assess -confused - Constitutional Vitals: Vital Signs - 12hr 06/28/21 06/28/21 07:58 10:00 Temperature 97.9 F Respiratory 18 Rate Blood Pressure 190/120 O2 Sat by Pulse 100 Oximetry - Labs CBC & Chem 7: 06/28/21 09:01 06/28/21 09:02 Labs: Abnormal lab results 06/27/21 06/28/21 06/28/21 Range/Units 23:39 05:51 09:01 RBC 3.63 L (3.65-5.03) M/mm3 BUN (7-17) mg/dL Glucose (65-100) mg/dL POC Glucose 231 H 150 H (70-105) mg/dL 06/28/21 06/28/21 06/28/21 Range/Units 09:02 11:54 16:47 RBC (3.65-5.03) M/mm3 BUN 5 L (7-17) mg/dL Glucose 208 H (65-100) mg/dL POC Glucose 178 H 110 H (70-105) mg/dL HEART Score - HEART Score Troponin: Troponin T 0.312 ng/mL (0.00-0.029) H* 06/23/21 12:23
[2021-06-28] MEDS: ASPIRIN 81 MG TAB CHEW PO SCH (17:40)
[2021-06-28] MEDS: amLODIPine 10 MG TAB PO SCH (17:41)
[2021-06-28] MEDS: RANOLAZINE ER 500 MG TAB 12HR PO SCH (17:41)
[2021-06-28] MEDS: CLOPIDOGREL 75 MG TAB PO SCH (17:41)
[2021-06-28] MEDS: hydrALAZINE 100 MG TAB PO SCH (22:06)
[2021-06-28] MEDS: ENOXAPARIN 40 MG/0.4 ML INJ SUB-Q SCH (22:07)
--- NOTE | 2021-06-29 09:22 | Progress Note ---
Assessment and Plan Assessment and plan: # Acute encephalopathy with possible CVA vs encephalitis VS hydrocephalus -pt. is found in her truck unresponsive with fecal and urinary incontince: Possible postictal state following seizure ? -drug screen is unremarkable -CT brain is remarkable for bilateral Hypo attenuation at thalami? -started on ASA and Lipitor -MRI brain is suggestive of bilateral thalamic lesion with wide DD: s/p LP, CSF with normal findings -Started on Thiamine IV - EEG w/o any epileptic wave, neuro following -Seizure precaution, will place on empirically IV Keppra MRI ordered today, follow report, follow neurology and neurosurgeon recommendations # Elevated troponin/NSTEMI type 2 - elevated cardiac enzymes -Chest pain protocol: Serial cardiac enzymes, EKG, telemetry monitoring, echocardiogram, -cardiology following and recommended medical Mx, as the mild troponin elevation that was unchanged on serial levels appears a likely nonspecific finding. # Syncope Patient found unresponsive, brought to the hospital with a CT scan showing bilateral thalamic infarcts. Further neuro assessment and management in progress: MRI brain EEG pending Echocardiogram shows left ventricular ejection fraction of 45%, but negative contrast bubble study. # Coronary artery disease history of two-vessel coronary stenting 4 years ago. Most recent stress test 6 months ago was negative. ECG on this presentation is normal with no ischemic ST or T wave changes. cardiology following, cont medical mx # DVT prophylaxis -SCD to bilateral lower extremities while in bed. Brief history and daily hospital course: 55 YO Female with Obesity, HTN presents to ED for evaluation of altered mental status. EMS was summoned to a truck park when the patient was found in her vehicle unresponsive. The patient was found by staff at the truck park unresponsive and covered in fecal material. 2: Remains lathergic and confused. drug screen is unremarkable, CT brain is remarkable for bilateral Hypo attenuation at thalami? cont on ASA and Lipitor MRI brain is pending, Started on Thiamine IV. EEG today is remarkable for mild diffuse slowing ,possibility of post ictal and or drug effect can not be excluded cont Seizure precaution and Keppra to 250 mg bid 06/24: Remains lethargic, MRI brain pending, continue Keppra twice daily. Continue to follow clinically with supportive care 06/25: MRI brain is suggestive of bilateral thalamic lesion with wide DD. s/p LP done today, protein and Glucose are normal with normal open pressure. Gram stain and Cs are pending , cell count is pending. Per neuro, if CSF study normal need to consider Neurosurgery opinion to r/o Hydrocephalus 06/26: patient was agitated earlier, placed on restraint. Cont iv fluid, cont AED. follow CSF study. has no fever or elevated white count, covid test is negative 06/27: CSF study normal, HSV PCR pending, mental status improved - tolerating diet but very confused. Will consult ID for possible encephalitis, and also NS for possible hydrocephalus. 06/28: Mental status i,proving, more alert but remains confused. will monitor off restraint, d/c iv fluid as tolerating diet. discussed with NS and dr jim will see her. ID signed off as no infectious source so far, CSF study negative. Plan to repeat MRI brain. 06/29; repeat MRI brain scheduled for today. We will follow the findings and adjust the management as needed in consultation with neurology and neurosurgery History Interval history: I have seen and examined the patient at the bedside this morning Patient's chart, tests and reports, medication list reviewed Patient is alert, confused, minimally communicative Not in acute distress Hospitalist Physical - Constitutional Vitals: Temp Pulse Resp BP Pulse Ox 98.0 F 98 H 18 122/77 100 06/29/21 07:28 06/29/21 07:28 06/29/21 07:28 06/29/21 07:28 06/29/21 07:28 General appearance: Present: no acute distress, other (Mildly confused, follows simple verbal commands .) - EENT Eyes: Present: PERRL (Limited upward gaze and downward gaze eye movements), EOM intact - Neck Neck: Present: supple - Respiratory Respiratory effort: normal Respiratory: bilateral: diminished, negative: rales, rhonchi, wheezing - Cardiovascular Rhythm: regular Heart Sounds: Present: S1 & S2 - Extremities Extremities: no ischemia, No edema - Abdominal General gastrointestinal: soft, non-tender, non-distended, normal bowel sounds - Integumentary Integumentary: Present: clear, warm - Psychiatric Psychiatric: other (Patient is confused, unable to follow commands sometimes) - Neurologic Neurologic: moves all extremities HEART Score - HEART Score Troponin: Troponin T 0.312 ng/mL (0.00-0.029) H* 06/23/21 12:23 Results - Labs CBC & Chem 7: 06/28/21 09:01 06/28/21 09:02 Labs: Laboratory Last Values WBC 7.8 K/mm3 (4.5-11.0) 06/28/21 09:01 RBC 3.63 M/mm3 (3.65-5.03) L 06/28/21 09:01 Hgb 11.8 gm/dl (10.1-14.3) 06/28/21 09:01 Hct 34.4 % (30.3-42.9) 06/28/21 09:01 MCV 95 fl (79-97) 06/28/21 09:01 MCH 32 pg (28-32) 06/28/21 09:01 MCHC 34 % (30-34) 06/28/21 09:01 RDW 13.5 % (13.2-15.2) 06/28/21 09:01 Plt Count 262 K/mm3 (140-440) 06/28/21 09:01 Lymph % (Auto) 22.6 % (13.4-35.0) 06/26/21 07:11 [place] % (Auto) 5.8 % (0.0-7.3) 06/26/21 07:11 Eos % (Auto) 0.4 % (0.0-4.3) 06/26/21 07:11 Baso % (Auto) 0.5 % (0.0-1.8) 06/26/21 07:11 Lymph # (Auto) 2.3 K/mm3 (1.2-5.4) 06/26/21 07:11 [place] # (Auto) 0.6 K/mm3 (0.0-0.8) 06/26/21 07:11 Eos # (Auto) 0.0 K/mm3 (0.0-0.4) 06/26/21 07:11 Baso # (Auto) 0.1 K/mm3 (0.0-0.1) 06/26/21 07:11 Seg Neutrophils % 70.7 % (40.0-70.0) H 06/26/21 07:11 Seg Neutrophils # 7.2 K/mm3 (1.8-7.7) 06/26/21 07:11 PT 12.7 Sec. (12.2-14.9) 06/21/21 14:45 INR 0.86 (0.87-1.13) L 06/21/21 14:45 APTT 24.1 Sec. (24.2-36.6) L 06/21/21 14:45 D-Dimer 815.68 ng/mlDDU (0-234) H 06/21/21 14:45 Sodium 142 mmol/L (137-145) 06/28/21 09:02 Potassium 3.7 mmol/L (3.6-5.0) 06/28/21 09:02 Chloride 105.9 mmol/L (98-107) 06/28/21 09:02 Carbon Dioxide 26 mmol/L (22-30) 06/28/21 09:02 Anion Gap 14 mmol/L 06/28/21 09:02 BUN 5 mg/dL (7-17) L 06/28/21 09:02 Creatinine 0.7 mg/dL (0.6-1.2) 06/28/21 09:02 Estimated GFR > 60 ml/min 06/28/21 09:02 BUN/Creatinine Ratio 7 % 06/28/21 09:02 Glucose 208 mg/dL (65-100) H 06/28/21 09:02 POC Glucose 110 mg/dL (70-105) H 06/28/21 16:47 Lactic Acid < 0.20 mmol/L (0.7-2.0) L 06/21/21 14:45 Calcium 9.1 mg/dL (8.4-10.2) 06/28/21 09:02 Total Bilirubin 0.50 mg/dL (0.1-1.2) 06/21/21 14:45 Direct Bilirubin < 0.2 mg/dL (0-0.2) 06/21/21 14:45 Indirect Bilirubin 0.3 mg/dL 06/21/21 14:45 AST 21 units/L (5-40) 06/21/21 14:45 ALT 20 units/L (7-56) 06/21/21 14:45 Alkaline Phosphatase 135 units/L (35-129) H 06/21/21 14:45 Ammonia 19.0 umol/L (25-60) L 06/21/21 14:45 Total Creatine Kinase 173 units/L (30-135) H 06/21/21 14:45 Troponin T 0.312 ng/mL (0.00-0.029) H* 06/23/21 12:23 Total Protein 7.6 g/dL (6.3-8.2) 06/21/21 14:45 Albumin 4.1 g/dL (3.9-5) 06/21/21 14:45 Albumin/Globulin Ratio 1.2 % 06/21/21 14:45 Triglycerides 95 mg/dL (2-149) 06/21/21 14:45 Cholesterol 286 mg/dL (50-199) H 06/21/21 14:45 LDL Cholesterol Direct 178 mg/dL (50-130) H 06/21/21 14:45 HDL Cholesterol 83 mg/dL (40-59) H 06/21/21 14:45 Cholesterol/HDL Ratio 3.44 % 06/21/21 14:45 TSH 0.326 mlU/mL (0.270-4.200) 06/21/21 14:45 Urine Color Yellow (Yellow) 06/21/21 17:44 Urine Turbidity Clear (Clear) 06/21/21 17:44 Urine pH 7.0 (5.0-7.0) 06/21/21 17:44 Ur Specific [place] 1.020 (1.003-1.030) 06/21/21 17:44 Urine Protein <15 mg/dl mg/dL (Negative) 06/21/21 17:44 Urine Glucose (UA) Negative mg/dL (Negative) 06/21/21 17:44 Urine Ketones Negative mg/dL (Negative) 06/21/21 17:44 Urine Blood Small (Negative) A 06/21/21 17:44 Urine Nitrite Negative (Negative) 06/21/21 17:44 Urine Bilirubin Negative (Negative) 06/21/21 17:44 Urine Urobilinogen 1.0 mg/dL (<2.0) 06/21/21 17:44 Ur Leukocyte Esterase Negative (Negative) 06/21/21 17:44 Urine WBC (Auto) < 1.0 /HPF (0.0-6.0) 06/21/21 17:44 Urine RBC (Auto) < 1.0 /HPF (0.0-6.0) 06/21/21 17:44 CSF Appearance Clear 06/25/21 Unknown CSF Color Colorless 06/25/21 Unknown CSF WBC 2 /mm3 (1-10) 06/25/21 Unknown CSF RBC 1 /mm3 (0-0) 06/25/21 Unknown CSF Seg Neutrophils 5.3 % (0-6) 06/25/21 Unknown CSF Lymphocytes % 57.9 % (40-80) 06/25/21 Unknown CSF Reactive Lymphs Not Reportable 06/25/21 Unknown CSF Monocytes % 36.8 % (15-45) 06/25/21 Unknown CSF Eosinophils % Not Reportable 06/25/21 Unknown CSF Basophils Not Reportable 06/25/21 Unknown CSF Pathologist Review C 06/25/21 Unknown CSF Glucose 117 mg/dL 06/25/21 Unknown CSF Total Protein 34 mg/dL 06/25/21 Unknown Salicylates < 0.3 mg/dL (2.8-20.0) L 06/21/21 14:45 Urine Opiates Screen Negative 06/21/21 17:44 Urine Methadone Screen Negative 06/21/21 17:44 Acetaminophen 5.0 ug/mL (10.0-30.0) L 06/21/21 14:45 Ur Barbiturates Screen Negative 06/21/21 17:44 Ur Phencyclidine Scrn Negative 06/21/21 17:44 Ur Amphetamines Screen Negative 06/21/21 17:44 U Benzodiazepines Scrn Negative 06/21/21 17:44 Urine Cocaine Screen Negative 06/21/21 17:44 U Marijuana (THC) Screen Negative 06/21/21 17:44 Drugs of Abuse Note Disclamer 06/21/21 17:44 Plasma/Serum Alcohol < 0.01 % (0-0.07) 06/21/21 14:45 Blood Type O POSITIVE 06/21/21 14:45 Antibody Screen Negative 06/21/21 14:45 Microbiology: Microbiology 06/25/21 Unknown Cerebral Spinal Fluid CSF Culture - Preliminary 06/25/21 Unknown Cerebral Spinal Fluid Cryptococcal Antigen - Final Milsl/IV: Voiding Method External Female Catheter Active Medications - Current Medications Current Medications: Generic Name Dose Route Start Last Admin Trade Name Freq PRN Reason Stop Dose Admin Acetaminophen 650 mg 06/21/21 17:39 06/26/21 09:55 Acetaminophen 325 Mg Tab PO 650 mg Q6H PRN Administration Pain, Mild (1-3) Amlodipine Besylate 10 mg 06/28/21 18:00 06/28/21 17:41 Amlodipine 10 Mg Tab PO 10 mg QDAY JANAY Administration Aspirin 81 mg 06/28/21 18:00 06/28/21 17:40 Aspirin 81 Mg Tab Chew PO 81 mg QDAY [facility] Administration Atorvastatin Calcium 40 mg 06/21/21 22:00 06/28/21 22:06 Atorvastatin 40 Mg Tab PO 40 mg QHS JANAY Administration Bisacodyl 10 mg 06/21/21 17:39 Bisacodyl 10 Mg Rect Supp LA QDAY PRN Constipation Clonidine HCl 0.2 mg 06/27/21 12:00 06/27/21 13:20 Clonidine Tts 0.2 Mg/24 Hr Patch TD 0.2 mg [place] JANAY Administration Clopidogrel Bisulfate 75 mg 06/28/21 18:00 06/28/21 17:41 Clopidogrel 75 Mg Tab PO 75 mg QDAY [facility] Administration Enoxaparin Sodium 40 mg 06/27/21 22:00 06/28/21 22:07 Enoxaparin 40 Mg/0.4 Ml Inj SUB-Q 40 mg QDAY@2200 [facility] Administration Protocol Hydralazine HCl 10 mg 06/27/21 09:07 06/28/21 10:03 Hydralazine 10 Mg Tab PO 10 mg Q4H PRN Administration hypertension Hydralazine HCl 100 mg 06/28/21 20:00 06/28/21 22:06 Hydralazine 100 Mg Tab PO 100 mg TID [facility] Administration Hydromorphone HCl 0.5 mg 06/21/21 17:39 Hydromorphone 1 Mg/1 Ml Inj IV Q23H PRN Pain , Severe (7-10) Thiamine HCl 100 mg/ Sodium 51 mls @ 100 mls/hr 06/29/21 10:00 Chloride IV QDAY [facility] Levetiracetam 250 mg 06/28/21 10:00 06/28/21 22:06 Levetiracetam 500 Mg Tab PO 250 mg BID [facility] Administration Magnesium Hydroxide 30 ml 06/21/21 17:39 Magnesium Hydroxide (Mom) Oral Liqd Udc PO Q4H PRN Constipation Metoclopramide HCl 10 mg 06/21/21 17:39 Metoclopramide 10 Mg Tab PO Q6H PRN Nausea And Vomiting Metoprolol Succinate 25 mg 06/27/21 10:00 06/28/21 09:56 Metoprolol Succinate Xl 25 Mg Tab PO 25 mg QDAY [facility] Administration Nitroglycerin 0.4 mg 06/21/21 17:39 Nitroglycerin 0.4 Mg Tab Subl SL Q5M PRN Chest Pain Ondansetron HCl 4 mg 06/21/21 17:39 Ondansetron 4 Mg/2 Ml Inj IV Q8H PRN Nausea And Vomiting Oxycodone/Acetaminophen 1 tab 06/21/21 17:39 Oxycodone /Acetaminophen 5-325mg Tab PO Q16H PRN Pain, Moderate (4-6) Promethazine HCl 25 mg 06/21/21 17:39 Promethazine 25 Mg Rect Supp LA Q6H PRN Nausea And Vomiting Ranolazine 500 mg 06/28/21 18:00 06/28/21 17:41 Ranolazine Er 500 Mg Tab 12hr PO 500 mg QDAY JANAY Administration Sodium Chloride 10 ml 06/21/21 17:39 06/27/21 21:39 Sodium Chloride 0.9% 10 Ml Flush Syringe IV 10 ml PRN PRN Administration LINE FLUSH Tramadol HCl 50 mg 06/21/21 17:39 Tramadol 50 Mg Tab PO Q6H PRN Pain, Moderate (4-6) Nutrition/Malnutrition Assess - Dietary Evaluation Nutrition/Malnutrition Findings: Nutrition Notes Start: 06/28/21 13:09 Freq: Status: Active Protocol: Document 06/28/21 13:10 DANIELLA (Rec: 06/28/21 13:13 DANIELLA [id number]) Nutrition Notes Need for Assessment generated from: LOS Initial or Follow up Brief Note Current Diet Regular Height 5 ft 3 in Weight 78.6 kg [place] Body Weight (kg) 52.27 BMI 30.7 Weight Status Obese Subjective/Other Information Pt screened for LOS. She has consumed 82% of meals since admission. Percent of energy/protein needs met: 100% energy and pro Burn Absent Trauma Absent Current % PO Good (75-100%) Minimum of two criteria No Is patient on ventilator? No Is Patient Ambulatory and/or Out of Bed No REE-([facility]-confined to bed) 1636.296 Kcal/Kg value to use for calculation 16 Approximate Energy Requirements Using 1258 kcal/Kg Calculation Used for Recommendations Kcal/kg Additional Notes Pro needs 0.8-1g/kg adjBW: 52- 65g/day Fluid needs 1ml/kcal Nutrition Intervention Revisit per MD consult or patient Sign Off request:
[2021-06-29] MEDS: METOPROLOL SUCCINATE XL 25 MG TAB PO SCH (10:06)
[2021-06-29] MEDS: hydrALAZINE 100 MG TAB PO SCH ×3 (10:06→20:40)
[2021-06-29] MEDS: CLOPIDOGREL 75 MG TAB PO SCH (10:07)
[2021-06-29] MEDS: levETIRAcetam 500 MG TAB PO SCH ×2 (10:07→22:13)
[2021-06-29] MEDS: RANOLAZINE ER 500 MG TAB 12HR PO SCH (10:07)
[2021-06-29] MEDS: ASPIRIN 81 MG TAB CHEW PO SCH (10:07)
[2021-06-29] MEDS: amLODIPine 10 MG TAB PO SCH (10:07)
--- NOTE | 2021-06-29 11:27 | Progress Note ---
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 Further neuro assessment and management in progress. Echocardiogram shows left ventricular ejection fraction of 45%, but negative contrast bubble study. Conservative cardiac management. (2) Coronary artery disease Current Visit: Yes Status: Acute Plan to address problem: Patient has a history of complex coronary artery disease with two-vessel coronary stenting 4 years ago at a hospital in [place]. Most recent follow-up stress test 6 months ago was negative, patient was reported to have exercised for 6 minutes of Parveen protocol. We will continue guideline directed medical therapy for coronary artery disease, and continue follow-up as indicated. Further cardiac evaluation and management will depend on clinical course. Subjective Date of service: 06/29/21 Principal diagnosis: Altered mental status Interval history: Patient is comfortable, no acute distress, no new cardiac events reported. Objective Vital Signs Temp Pulse Resp BP BP Pulse Ox 06/29/21 10:06 122/77 06/29/21 07:28 98.0 F 98 H 18 122/77 100 06/29/21 04:21 98.4 F 56 L 18 119/65 82 L 06/29/21 00:15 98.2 F 64 18 151/94 91 06/29/21 00:13 98.2 F 64 18 151/94 91 06/28/21 22:00 100 06/28/21 20:30 97.7 F 68 18 150/98 150/98 100 06/28/21 16:47 98.2 F 54 L 18 149/86 99 - Physical Examination General: No Apparent Distress, Other (Mildly confused) HEENT: Positive: PERRL Neck: Positive: neck supple Cardiac: Positive: Reg Rate and Rhythm Lungs: Positive: Decreased Breath Sounds Neuro: Positive: Grossly Intact Abdomen: Positive: Soft Skin: Positive: Clear Extremities: Absent: edema
[2021-06-29] MEDS: THIAMINE 100 MG in SODIUM CHLORIDE 0.9% 50 ML IV SCH (11:32)
--- NOTE | 2021-06-29 12:38 | Progress Note ---
Assessment and Plan Assessment and Plan 55 YO Female with Obesity, HTN presents to ED for evaluation. Patient is confused with diminished cognition at the time my evaluation is unable to provide history. Patient history taken from EMS staff, ED staff. EMS was summoned to a truck park when the patient was found in her vehicle unresponsive. 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 The patient was found by staff at the truck park unresponsive and covered in fecal material. - Patient Problems # Acute/Subacute encephalopathy -pt. is found in her truck unresponsive with fecal and urinary incontince -she is obtunded , and is able to move all limbs -Seizure can not be excluded -drug screen is unremarkable -CT brain is remarkable for bilateral Hypo attenuation at thalami? -started on ASA and Lipitor -MRI brain is suggestive of bilateral thalamic lesion with wide DD -Start on Thiamine IV - EEG today is remarkable for mild diffuse slowing ,possibility of post ictal and or drug effect can not be excluded -Seizure precaution -cut down Keppra to 250 mg bid -According to pt. today she had Hx of seizure ? but not on medication she is with hx of CVD and stent -she is still sluggish to respond and with no focal neurological deficit other than drowsiness and slurred speech -MRI brain is noted - LP showed 1 wbcs with normal glucose and protein , with no sign to suggest encephalitis -might need to consider NS openion ? third ventricle obstruction ?? - will repeat MRI brain with gd is pending -send for ACH abs titer is pending-- she is with limited up and down gaze palsy!! -need PT /ST evaluate # NSTEMI (non-ST elevated myocardial infarction) - elevated cardiac enzymes -Chest pain protocol: Serial cardiac enzymes, EKG, telemetry monitoring, therapeutic anticoagulation, echocardiogram, D-dimer # DVT prophylaxis -SCD to bilateral lower extremities while in bed, continue therapeutic anticoagulation will follow Subjective Date of service: 06/29/21 Principal diagnosis: Altered mental status Interval history: she is slightly better today move all limbs, follow simple command , no facial asymmetry , still drowsy and is with slurred speech MRI brain is same like CT ? bilateral thalamic hypodensity ? r/o anoxia? 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 placed on Keppra 250 mg bid and thiamine EEG is remarkable for diffuse slowing with possibility of drug effect vs post ictal can not be excluded UDS is unremarkable Objective - Vital Sign Vital Signs - 12hr 06/29/21 06/29/21 06/29/21 04:21 07:28 10:06 Temperature 98.4 F 98.0 F Pulse Rate 56 L 98 H Respiratory 18 18 Rate Blood Pressure 119/65 122/77 122/77 O2 Sat by Pulse 82 L 100 Oximetry - General Apperance Constitutional: comfortable - EENT EENT: PERRL, mucous membranes moist - Respiratory Respiratory: lungs clear, rhonchi - Cardiovascular Cardiovascular: regular rate, normal S1, normal S2 Extremities: no peripheral edema bilat, no clubbing, cyanosis - Gastrointestinal Gastrointestinal: normoactive bowel sounds - Integumentary Integumentary: normal - Neurologic Cranial nerve examination: PERRL, EOMI, other (Limited upgaze and down gaze eyes movments , no nystagmus, pupils reactive , no visual field deficit , no other facial asymmetry or weakness is noted) - Laboratory Findings CBC and BMP: 06/28/21 09:01 06/28/21 09:02 Abnormal Lab Findings: Abnormal Labs 06/21/21 06/21/21 06/21/21 14:45 14:45 14:45 WBC 11.2 H RBC Hgb 14.4 H Hct 44.3 H Seg Neutrophils % INR 0.86 L APTT 24.1 L D-Dimer BUN Glucose 203 H POC Glucose Lactic Acid Alkaline Phosphatase 135 H Ammonia Total Creatine Kinase 173 H Troponin T 0.311 H* Cholesterol 286 H LDL Cholesterol Direct 178 H HDL Cholesterol 83 H Urine Blood Salicylates Acetaminophen 06/21/21 06/21/21 06/21/21 14:45 14:45 14:45 WBC RBC Hgb Hct Seg Neutrophils % INR APTT D-Dimer BUN Glucose POC Glucose Lactic Acid < 0.20 L Alkaline Phosphatase Ammonia 19.0 L Total Creatine Kinase Troponin T Cholesterol LDL Cholesterol Direct HDL Cholesterol Urine Blood Salicylates < 0.3 L Acetaminophen 06/21/21 06/21/21 06/21/21 14:45 14:45 17:44 WBC RBC Hgb Hct Seg Neutrophils % INR APTT D-Dimer 815.68 H BUN Glucose POC Glucose Lactic Acid Alkaline Phosphatase Ammonia Total Creatine Kinase Troponin T Cholesterol LDL Cholesterol Direct HDL Cholesterol Urine Blood Small A Salicylates Acetaminophen 5.0 L 06/21/21 06/22/21 06/23/21 23:16 18:41 00:13 WBC RBC Hgb Hct Seg Neutrophils % INR APTT D-Dimer BUN Glucose POC Glucose Lactic Acid Alkaline Phosphatase Ammonia Total Creatine Kinase Troponin T 0.395 H* D 0.340 H* 0.307 H* Cholesterol LDL Cholesterol Direct HDL Cholesterol Urine Blood Salicylates Acetaminophen 06/23/21 06/23/21 06/26/21 12:23 12:23 07:11 WBC RBC Hgb Hct Seg Neutrophils % 70.7 H INR APTT D-Dimer BUN Glucose 121 H POC Glucose Lactic Acid Alkaline Phosphatase Ammonia Total Creatine Kinase Troponin T 0.312 H* Cholesterol LDL Cholesterol Direct HDL Cholesterol Urine Blood Salicylates Acetaminophen 06/26/21 06/27/21 06/28/21 07:11 23:39 05:51 WBC RBC Hgb Hct Seg Neutrophils % INR APTT D-Dimer BUN 6 L Glucose 231 H POC Glucose 231 H 150 H Lactic Acid Alkaline Phosphatase Ammonia Total Creatine Kinase Troponin T Cholesterol LDL Cholesterol Direct HDL Cholesterol Urine Blood Salicylates Acetaminophen 06/28/21 06/28/21 06/28/21 09:01 09:02 11:54 WBC RBC 3.63 L Hgb Hct Seg Neutrophils % INR APTT D-Dimer BUN 5 L Glucose 208 H POC Glucose 178 H Lactic Acid Alkaline Phosphatase Ammonia Total Creatine Kinase Troponin T Cholesterol LDL Cholesterol Direct HDL Cholesterol Urine Blood Salicylates Acetaminophen 06/28/21 16:47 WBC RBC Hgb Hct Seg Neutrophils % INR APTT D-Dimer BUN Glucose POC Glucose 110 H Lactic Acid Alkaline Phosphatase Ammonia Total Creatine Kinase Troponin T Cholesterol LDL Cholesterol Direct HDL Cholesterol Urine Blood Salicylates Acetaminophen
--- NOTE | 2021-06-29 17:23 | Magnetic Resonance Report ---
MR brain wo con INDICATION / CLINICAL INFORMATION: 55 years Female; encephalopathy ,bilteral eyes drooping ,Hydroceph. TECHNIQUE: Multiplanar, multisequence MR images of the brain were obtained. COMPARISON: MRI-06/24/2021 FINDINGS: BRAIN / INTRACRANIAL CONTENTS: Bilateral thalamic changes again noted-findings on the left more promi nent than the right. Since prior exam, areas of subtle, presumed hemorrhage are more pronounced on t he current study, particularly on the left, when compared with prior. This finding is best appreciate d on the gradient echo axial T2 sequence. Overall, the amount of edema present is similar to that see n on prior study. Findings certainly might affect the optic tracts, particularly on the left. Otherwise, no acute hemorrhage, mass effect, midline shift, hydrocephalus, or acute, large territori al infarct. No chronic infarct or atrophy. There are mild areas of increased signal intensity on FLAIR imaging in the white matter of the cerebr al hemispheres. These are nonspecific findings and may be related to microangiopathy (hypertension, d iabetes, atherosclerosis), given the patient's age. CRANIOCERVICAL JUNCTION: No significant abnormality. VASCULAR FLOW-VOIDS: No significant abnormality. ORBITS: No significant abnormality of visualized orbits. SINUSES / MASTOIDS: Moderate mucosal thickening seen in the left maxillary antrum and right sphenoid sinus. There is mild mucosal thickening in the mastoids on the right, as well as the ethmoids. ADDITIONAL FINDINGS: None. IMPRESSION: 1. Slightly more pronounced areas of hemorrhage in the thalamic regions bilaterally-left greater than right. 2. Otherwise, no significant interval change from prior exam appreciated. CRITICAL RESULT: Exam Completed (METER READING CLERK/CDT): 06/29/2021 2:56 PM Exam Reviewed (METER READING CLERK/CDT): 4:00 PM Time of Communication (METER READING CLERK/CDT): 4:16 PM Licensed Practitioner Receiving Report: Nora the patient's nurse Information confirmed: Yes. Signer Name: Rene Rodney MD, III Signed: 06/29/2021 5:19 PM Workstation Name: [id number]
--- NOTE | 2021-06-29 18:16 | Progress Note ---
Subjective Date of service: 06/29/21 Principal diagnosis: Altered mental status Interval history: NSGY Update: consult received, imaging studies reviewed. There are bilateral T2 hyperintense lesions of the bilateral thalami. There is concern for metabolic process vs thalamic glioma. I do not think this represents a hemorrhage. Please obtain repeat CT scan to rule out interval hemorrhage. I recommend starting dexamethasone 4 mg IV q6h. I spoke with Dr. Pickering, Neurologist. We both agree that this patient should be transferred for another facility for further evaluation of this bilateral thalamic lesion. Please notify if questions/concerns. Objective - Vital Sign Vital Signs - 12hr 06/29/21 06/29/21 06/29/21 07:28 10:00 10:06 Temperature 98.0 F Pulse Rate 98 H Pulse Rate [ 50 L Radial] Respiratory 18 18 Rate Blood Pressure 122/77 122/77 Blood Pressure [Left] O2 Sat by Pulse 100 99 Oximetry 06/29/21 12:35 Temperature 97.5 F L Pulse Rate 63 Pulse Rate [ Radial] Respiratory 20 Rate Blood Pressure Blood Pressure 106/65 [Left] O2 Sat by Pulse 99 Oximetry - Laboratory Findings CBC and BMP: 06/28/21 09:01 06/28/21 09:02 Abnormal Lab Findings: Abnormal Labs 06/21/21 06/21/21 06/21/21 14:45 14:45 14:45 WBC 11.2 H RBC Hgb 14.4 H Hct 44.3 H Seg Neutrophils % INR 0.86 L APTT 24.1 L D-Dimer BUN Glucose 203 H POC Glucose Lactic Acid Alkaline Phosphatase 135 H Ammonia Total Creatine Kinase 173 H Troponin T 0.311 H* Cholesterol 286 H LDL Cholesterol Direct 178 H HDL Cholesterol 83 H Urine Blood Salicylates Acetaminophen 06/21/21 06/21/21 06/21/21 14:45 14:45 14:45 WBC RBC Hgb Hct Seg Neutrophils % INR APTT D-Dimer BUN Glucose POC Glucose Lactic Acid < 0.20 L Alkaline Phosphatase Ammonia 19.0 L Total Creatine Kinase Troponin T Cholesterol LDL Cholesterol Direct HDL Cholesterol Urine Blood Salicylates < 0.3 L Acetaminophen 06/21/21 06/21/21 06/21/21 14:45 14:45 17:44 WBC RBC Hgb Hct Seg Neutrophils % INR APTT D-Dimer 815.68 H BUN Glucose POC Glucose Lactic Acid Alkaline Phosphatase Ammonia Total Creatine Kinase Troponin T Cholesterol LDL Cholesterol Direct HDL Cholesterol Urine Blood Small A Salicylates Acetaminophen 5.0 L 06/21/21 06/22/21 06/23/21 23:16 18:41 00:13 WBC RBC Hgb Hct Seg Neutrophils % INR APTT D-Dimer BUN Glucose POC Glucose Lactic Acid Alkaline Phosphatase Ammonia Total Creatine Kinase Troponin T 0.395 H* D 0.340 H* 0.307 H* Cholesterol LDL Cholesterol Direct HDL Cholesterol Urine Blood Salicylates Acetaminophen 06/23/21 06/23/21 06/26/21 12:23 12:23 07:11 WBC RBC Hgb Hct Seg Neutrophils % 70.7 H INR APTT D-Dimer BUN Glucose 121 H POC Glucose Lactic Acid Alkaline Phosphatase Ammonia Total Creatine Kinase Troponin T 0.312 H* Cholesterol LDL Cholesterol Direct HDL Cholesterol Urine Blood Salicylates Acetaminophen 06/26/21 06/27/21 06/28/21 07:11 23:39 05:51 WBC RBC Hgb Hct Seg Neutrophils % INR APTT D-Dimer BUN 6 L Glucose 231 H POC Glucose 231 H 150 H Lactic Acid Alkaline Phosphatase Ammonia Total Creatine Kinase Troponin T Cholesterol LDL Cholesterol Direct HDL Cholesterol Urine Blood Salicylates Acetaminophen 06/28/21 06/28/21 06/28/21 09:01 09:02 11:54 WBC RBC 3.63 L Hgb Hct Seg Neutrophils % INR APTT D-Dimer BUN 5 L Glucose 208 H POC Glucose 178 H Lactic Acid Alkaline Phosphatase Ammonia Total Creatine Kinase Troponin T Cholesterol LDL Cholesterol Direct HDL Cholesterol Urine Blood Salicylates Acetaminophen 06/28/21 16:47 WBC RBC Hgb Hct Seg Neutrophils % INR APTT D-Dimer BUN Glucose POC Glucose 110 H Lactic Acid Alkaline Phosphatase Ammonia Total Creatine Kinase Troponin T Cholesterol LDL Cholesterol Direct HDL Cholesterol Urine Blood Salicylates Acetaminophen
--- NOTE | 2021-06-29 18:20 | Event Note ---
Date: 06/29/21 I called and discussed the case with neurosurgeon Dr. Kelvin Perkins , he recommended CT head without contrast and MRI brain with contrast Also advised 4 mg of dexamethasone IV every 6 hours and supportive care. I also discussed the case with neurologist . We will follow the imaging studies, and manage accordingly. Consider transfer to higher level of care either to [place] tomorrow after reviewing CT head and MRI with contrast as needed. I will try to contact family patient's brother Mr. Saulo Vega at [phone] and update patient's condition, tests and reports Consultants recommendations and treatment plan.
[2021-06-29] MEDS: dexAMETHasone 4 MG/ML VIAL IV SCH (19:22)
[2021-06-29] MEDS: ENOXAPARIN 40 MG/0.4 ML INJ SUB-Q SCH (22:13)
[2021-06-30] MEDS: dexAMETHasone 4 MG/ML VIAL IV SCH ×4 (00:12→18:12)
--- NOTE | 2021-06-30 08:14 | Progress Note ---
Assessment and Plan Assessment and plan: 55 YO Female with Obesity, HTN presents to ED for evaluation of altered mental status. EMS was summoned to a truck park when the patient was found in her vehicle unresponsive. The patient was found by staff at the truck park unresponsive and covered in fecal material. Patient had extensive neuro work-up as mentioned below, evaluated by neurologist and subsequently by neurosurgeon. Patient had multiple imaging studies Today 06/30/[address] head without contrast and MRI brain with contrast. Findings are as mentioned below. Will initiate transfer to [facility] for higher level care. --Bilateral thalamic lesions on CT head , MRI brain ; There is concern for metabolic process vs thalamic glioma. Lumbar puncture/CSF analysis with normal findings[06/25/2021] Evaluated by neurosurgeon Dr. Watts and neurologist , recommended repeat CT head without contrast and MRI brain with contrast Pending imaging studies and reports, will request transfer to [facility] for higher level of care by the [facility] neurosurgical team as recommended by Neurosurgeon and neurologist. CT head without contrast 06/30/2021; evolving subacute ischemic infarct in both thalami no new acute parenchymal abnormality, minimal increase in lateral ventricular size suggesting some level of obstruction at the level of third ventricle due to mass-effect MRI brain with contrast 06/30/2021; overall these findings to be related to vascular event other etiologies such as fungal infection or viral and capsulitis might be considered, Low-grade neoplasm might be considered less likely Lumbar puncture may be of benefit[06/25/2021 LP and CSF analysis normal]. Initiate transfer to [facility] for further evaluation and management by neurosurgical team. # Acute encephalopathy with possible CVA vs encephalitis VS hydrocephalus -pt. is found in her truck unresponsive with fecal and urinary incontince: Possible postictal state following seizure ? -drug screen is unremarkable -CT brain is remarkable for bilateral Hypo attenuation at thalami? -started on ASA and Lipitor -MRI brain is suggestive of bilateral thalamic lesion with wide DD: -s/p LP, CSF with normal findings -Started on Thiamine IV - EEG w/o any epileptic wave, neuro following -Seizure precaution, will place on empirically IV Keppra 06/29/2021 MRI Bilateral T2 hyperintense lesions of the bilateral thalami. Follow neurology and neurosurgery recommendations Advised repeat CT head without contrast, MRI with contrast[not done last night due to unknown reason] We will follow the studies today # Elevated troponin/NSTEMI type 2 - elevated cardiac enzymes -Chest pain protocol: Serial cardiac enzymes, EKG, telemetry monitoring, echocardiogram, -cardiology following and recommended medical Mx, as the mild troponin elevation that was unchanged on serial levels appears a likely nonspecific finding. # Syncope Patient found unresponsive, brought to the hospital with a CT scan showing bilateral thalamic infarcts. Further neuro assessment and management in progress: MRI brain EEG pending Echocardiogram shows left ventricular ejection fraction of 45%, but negative contrast bubble study. # Coronary artery disease history of two-vessel coronary stenting 4 years ago. Most recent stress test 6 months ago was negative. ECG on this presentation is normal with no ischemic ST or T wave changes. cardiology following, cont medical mx # DVT prophylaxis -SCD to bilateral lower extremities while in bed. Disposition; initiate transfer process to [facility] to be evaluated and managed by [facility] neurosurgical team. Total critical care time 60MIN The high probability of a clinically significant, sudden or life threatening deterioration of the [multi] system(s) required my full and direct attention, intervention and personal management. The aggregate critical care time was [60] minutes. This time is in addition to time spent performing reported procedures but includes the following: [x] Data Review and interpretation [x] Patient assessment and monitoring of vital signs [x] Documentation [x] Medication orders and management Brief history and daily hospital course: 55 YO Female with Obesity, HTN presents to ED for evaluation of altered mental status. EMS was summoned to a truck park when the patient was found in her vehicle unresponsive. The patient was found by staff at the truck park unresponsive and covered in fecal material. Patient had extensive neuro work-up as mentioned below, evaluated by neurologist and subsequently by neurosurgeon. Patient had multiple imaging studies Today 06/30/[address] head without contrast and MRI brain with contrast. Findings are as mentioned below. Will initiate transfer to [facility] for higher level care. 06/23: Remains lathergic and confused. drug screen is unremarkable, CT brain is remarkable for bilateral Hypo attenuation at thalami? cont on ASA and Lipitor MRI brain is pending, Started on Thiamine IV. EEG today is remarkable for mild diffuse slowing ,possibility of post ictal and or drug effect can not be excluded cont Seizure precaution and Keppra to 250 mg bid 06/24: Remains lethargic, MRI brain pending, continue Keppra twice daily. Continue to follow clinically with supportive care 06/25: MRI brain is suggestive of bilateral thalamic lesion with wide DD. s/p LP done today, protein and Glucose are normal with normal open pressure. Gram stain and Cs are pending , cell count is pending. Per neuro, if CSF study normal need to consider Neurosurgery opinion to r/o Hydrocephalus 06/26: patient was agitated earlier, placed on restraint. Cont iv fluid, cont AED. follow CSF study. has no fever or elevated white count, covid test is negative 06/27: CSF study normal, HSV PCR pending, mental status improved - tolerating diet but very confused. Will consult ID for possible encephalitis, and also NS for possible hydrocephalus. 06/28: Mental status i,proving, more alert but remains confused. will monitor off restraint, d/c iv fluid as tolerating diet. discussed with NS and dr jim will see her. ID signed off as no infectious source so far, CSF study negative. Plan to repeat MRI brain. 06/29; repeat MRI brain scheduled for today. We will follow the findings and adjust the management as needed in consultation with neurology and neurosurgery 06/30; MRI brain with contrast, CT head without contrast ordered last evening where not done, will follow with radiology I will initiate the transfer process to [facility] to be evaluated by neurosurgical team I called [facility] transfer [facility] and discussed the case with the transfer nurse, she took all the details, my cell phone number and contact information of neurologist and neurosurgeon's and would call back. History Interval history: I have seen and examined the patient at the bedside Patient is scheduled for MRI with contrast and CT head without contrast this morning Patient is alert and awake confused, some eye problems No new overnight events reported by the nursing except for confusion Vital signs noted I will initiate the transfer process to [facility] Hospitalist Physical - Constitutional Vitals: Temp Pulse Resp BP Pulse Ox 98.0 F 82 18 117/77 98 06/30/21 05:53 06/30/21 05:53 06/30/21 05:53 06/30/21 05:53 06/30/21 05:53 General appearance: Present: no acute distress, obese, other (Mildly confused, follows simple verbal commands .) - EENT Eyes: Present: PERRL (Limited up gaze bilateral), EOM intact - Neck Neck: Present: supple, normal ROM - Respiratory Respiratory effort: normal Respiratory: bilateral: diminished, negative: rales, rhonchi, wheezing - Cardiovascular Rhythm: regular Heart Sounds: Present: S1 & S2 - Extremities Extremities: no ischemia, No edema - Abdominal General gastrointestinal: soft, non-tender, non-distended, normal bowel sounds - Integumentary Integumentary: Present: clear, warm - Psychiatric Psychiatric: other (Confused) - Neurologic Neurologic: moves all extremities, other (Confused) HEART Score - HEART Score Troponin: Troponin T 0.312 ng/mL (0.00-0.029) H* 06/23/21 12:23 Results - Labs CBC & Chem 7: 06/28/21 09:01 06/28/21 09:02 Labs: Laboratory Last Values WBC 7.8 K/mm3 (4.5-11.0) 06/28/21 09:01 RBC 3.63 M/mm3 (3.65-5.03) L 06/28/21 09:01 Hgb 11.8 gm/dl (10.1-14.3) 06/28/21 09:01 Hct 34.4 % (30.3-42.9) 06/28/21 09:01 MCV 95 fl (79-97) 06/28/21 09:01 MCH 32 pg (28-32) 06/28/21 09:01 MCHC 34 % (30-34) 06/28/21 09:01 RDW 13.5 % (13.2-15.2) 06/28/21 09:01 Plt Count 262 K/mm3 (140-440) 06/28/21 09:01 Lymph % (Auto) 22.6 % (13.4-35.0) 06/26/21 07:11 Kaufman % (Auto) 5.8 % (0.0-7.3) 06/26/21 07:11 Eos % (Auto) 0.4 % (0.0-4.3) 06/26/21 07:11 Baso % (Auto) 0.5 % (0.0-1.8) 06/26/21 07:11 Lymph # (Auto) 2.3 K/mm3 (1.2-5.4) 06/26/21 07:11 Kaufman # (Auto) 0.6 K/mm3 (0.0-0.8) 06/26/21 07:11 Eos # (Auto) 0.0 K/mm3 (0.0-0.4) 06/26/21 07:11 Baso # (Auto) 0.1 K/mm3 (0.0-0.1) 06/26/21 07:11 Seg Neutrophils % 70.7 % (40.0-70.0) H 06/26/21 07:11 Seg Neutrophils # 7.2 K/mm3 (1.8-7.7) 06/26/21 07:11 PT 12.7 Sec. (12.2-14.9) 06/21/21 14:45 INR 0.86 (0.87-1.13) L 06/21/21 14:45 APTT 24.1 Sec. (24.2-36.6) L 06/21/21 14:45 D-Dimer 815.68 ng/mlDDU (0-234) H 06/21/21 14:45 Sodium 142 mmol/L (137-145) 06/28/21 09:02 Potassium 3.7 mmol/L (3.6-5.0) 06/28/21 09:02 Chloride 105.9 mmol/L (98-107) 06/28/21 09:02 Carbon Dioxide 26 mmol/L (22-30) 06/28/21 09:02 Anion Gap 14 mmol/L 06/28/21 09:02 BUN 5 mg/dL (7-17) L 06/28/21 09:02 Creatinine 0.7 mg/dL (0.6-1.2) 06/28/21 09:02 Estimated GFR > 60 ml/min 06/28/21 09:02 BUN/Creatinine Ratio 7 % 06/28/21 09:02 Glucose 208 mg/dL (65-100) H 06/28/21 09:02 POC Glucose 110 mg/dL (70-105) H 06/28/21 16:47 Lactic Acid < 0.20 mmol/L (0.7-2.0) L 06/21/21 14:45 Calcium 9.1 mg/dL (8.4-10.2) 06/28/21 09:02 Total Bilirubin 0.50 mg/dL (0.1-1.2) 06/21/21 14:45 Direct Bilirubin < 0.2 mg/dL (0-0.2) 06/21/21 14:45 Indirect Bilirubin 0.3 mg/dL 06/21/21 14:45 AST 21 units/L (5-40) 06/21/21 14:45 ALT 20 units/L (7-56) 06/21/21 14:45 Alkaline Phosphatase 135 units/L (35-129) H 06/21/21 14:45 Ammonia 19.0 umol/L (25-60) L 06/21/21 14:45 Total Creatine Kinase 173 units/L (30-135) H 06/21/21 14:45 Troponin T 0.312 ng/mL (0.00-0.029) H* 06/23/21 12:23 Total Protein 7.6 g/dL (6.3-8.2) 06/21/21 14:45 Albumin 4.1 g/dL (3.9-5) 06/21/21 14:45 Albumin/Globulin Ratio 1.2 % 06/21/21 14:45 Triglycerides 95 mg/dL (2-149) 06/21/21 14:45 Cholesterol 286 mg/dL (50-199) H 06/21/21 14:45 LDL Cholesterol Direct 178 mg/dL (50-130) H 06/21/21 14:45 HDL Cholesterol 83 mg/dL (40-59) H 06/21/21 14:45 Cholesterol/HDL Ratio 3.44 % 06/21/21 14:45 TSH 0.326 mlU/mL (0.270-4.200) 06/21/21 14:45 Urine Color Yellow (Yellow) 06/21/21 17:44 Urine Turbidity Clear (Clear) 06/21/21 17:44 Urine pH 7.0 (5.0-7.0) 06/21/21 17:44 Ur Specific [place] 1.020 (1.003-1.030) 06/21/21 17:44 Urine Protein <15 mg/dl mg/dL (Negative) 06/21/21 17:44 Urine Glucose (UA) Negative mg/dL (Negative) 06/21/21 17:44 Urine Ketones Negative mg/dL (Negative) 06/21/21 17:44 Urine Blood Small (Negative) A 06/21/21 17:44 Urine Nitrite Negative (Negative) 06/21/21 17:44 Urine Bilirubin Negative (Negative) 06/21/21 17:44 Urine Urobilinogen 1.0 mg/dL (<2.0) 06/21/21 17:44 Ur Leukocyte Esterase Negative (Negative) 06/21/21 17:44 Urine WBC (Auto) < 1.0 /HPF (0.0-6.0) 06/21/21 17:44 Urine RBC (Auto) < 1.0 /HPF (0.0-6.0) 06/21/21 17:44 CSF Appearance Clear 06/25/21 Unknown CSF Color Colorless 06/25/21 Unknown CSF WBC 2 /mm3 (1-10) 06/25/21 Unknown CSF RBC 1 /mm3 (0-0) 06/25/21 Unknown CSF Seg Neutrophils 5.3 % (0-6) 06/25/21 Unknown CSF Lymphocytes % 57.9 % (40-80) 06/25/21 Unknown CSF Reactive Lymphs Not Reportable 06/25/21 Unknown CSF Monocytes % 36.8 % (15-45) 06/25/21 Unknown CSF Eosinophils % Not Reportable 06/25/21 Unknown CSF Basophils Not Reportable 06/25/21 Unknown CSF Pathologist Review C 06/25/21 Unknown CSF Glucose 117 mg/dL 06/25/21 Unknown CSF Total Protein 34 mg/dL 06/25/21 Unknown CSF VDRL Nonreactive (Nonreactive) 06/25/21 Unknown Salicylates < 0.3 mg/dL (2.8-20.0) L 06/21/21 14:45 Urine Opiates Screen Negative 06/21/21 17:44 Urine Methadone Screen Negative 06/21/21 17:44 Acetaminophen 5.0 ug/mL (10.0-30.0) L 06/21/21 14:45 Ur Barbiturates Screen Negative 06/21/21 17:44 Ur Phencyclidine Scrn Negative 06/21/21 17:44 Ur Amphetamines Screen Negative 06/21/21 17:44 U Benzodiazepines Scrn Negative 06/21/21 17:44 Urine Cocaine Screen Negative 06/21/21 17:44 U Marijuana (THC) Screen Negative 06/21/21 17:44 Drugs of Abuse Note Disclamer 06/21/21 17:44 Plasma/Serum Alcohol < 0.01 % (0-0.07) 06/21/21 14:45 HSV I Specific Ab <0.90 Index (<0.90) 06/25/21 14:15 Blood Type O POSITIVE 06/21/21 14:45 Antibody Screen Negative 06/21/21 14:45 Microbiology: Microbiology 06/25/21 Unknown Cerebral Spinal Fluid CSF Culture - Final 06/25/21 Unknown Cerebral Spinal Fluid Cryptococcal Antigen - Final [place]/IV: Voiding Method External Female Catheter Active Medications - Current Medications Current Medications: Generic Name Dose Route Start Last Admin Trade Name Freq PRN Reason Stop Dose Admin Acetaminophen 650 mg 06/21/21 17:39 06/26/21 09:55 Acetaminophen 325 Mg Tab PO 650 mg Q6H PRN Administration Pain, Mild (1-3) Amlodipine Besylate 10 mg 06/28/21 18:00 06/29/21 10:07 Amlodipine 10 Mg Tab PO 10 mg QDAY JANAY Administration Aspirin 81 mg 06/28/21 18:00 06/29/21 10:07 Aspirin 81 Mg Tab Chew PO 81 mg QDAY JANAY Administration Atorvastatin Calcium 40 mg 06/21/21 22:00 06/29/21 22:14 Atorvastatin 40 Mg Tab PO 40 mg QHS JANAY Administration Bisacodyl 10 mg 06/21/21 17:39 Bisacodyl 10 Mg Rect Supp WI QDAY PRN Constipation Clonidine HCl 0.2 mg 06/27/21 12:00 06/27/21 13:20 Clonidine Tts 0.2 Mg/24 Hr Patch TD 0.2 mg Oshea JANAY Administration Clopidogrel Bisulfate 75 mg 06/28/21 18:00 06/29/21 10:07 Clopidogrel 75 Mg Tab PO 75 mg QDAY JANAY Administration Dexamethasone 4 mg 06/29/21 19:00 06/30/21 05:20 Dexamethasone 4 Mg/Ml Vial IV 4 mg Q6HR JANAY Administration Enoxaparin Sodium 40 mg 06/27/21 22:00 06/29/21 22:13 Enoxaparin 40 Mg/0.4 Ml Inj SUB-Q 40 mg QDAY@2200 JANAY Administration Protocol Hydralazine HCl 10 mg 06/27/21 09:07 06/28/21 10:03 Hydralazine 10 Mg Tab PO 10 mg Q4H PRN Administration hypertension Hydralazine HCl 100 mg 06/28/21 20:00 06/29/21 20:40 Hydralazine 100 Mg Tab PO 100 mg TID JANAY Administration Hydromorphone HCl 0.5 mg 06/21/21 17:39 Hydromorphone 1 Mg/1 Ml Inj IV Q23H PRN Pain , Severe (7-10) Thiamine HCl 100 mg/ Sodium 51 mls @ 100 mls/hr 06/29/21 10:00 06/29/21 11:32 Chloride IV 100 mls/hr QDAY JANAY Administration Levetiracetam 250 mg 06/28/21 10:00 06/29/21 22:13 Levetiracetam 500 Mg Tab PO 250 mg BID JANAY Administration Magnesium Hydroxide 30 ml 06/21/21 17:39 Magnesium Hydroxide (Mom) Oral Liqd Udc PO Q4H PRN Constipation Metoclopramide HCl 10 mg 06/21/21 17:39 Metoclopramide 10 Mg Tab PO Q6H PRN Nausea And Vomiting Metoprolol Succinate 25 mg 06/27/21 10:00 06/29/21 10:06 Metoprolol Succinate Xl 25 Mg Tab PO 25 mg QDAY JANAY Administration Nitroglycerin 0.4 mg 06/21/21 17:39 Nitroglycerin 0.4 Mg Tab Subl SL Q5M PRN Chest Pain Ondansetron HCl 4 mg 06/21/21 17:39 Ondansetron 4 Mg/2 Ml Inj IV Q8H PRN Nausea And Vomiting Oxycodone/Acetaminophen 1 tab 06/21/21 17:39 Oxycodone /Acetaminophen 5-325mg Tab PO Q16H PRN Pain, Moderate (4-6) Promethazine HCl 25 mg 06/21/21 17:39 Promethazine 25 Mg Rect Supp WI Q6H PRN Nausea And Vomiting Ranolazine 500 mg 06/28/21 18:00 06/29/21 10:07 Ranolazine Er 500 Mg Tab 12hr PO 500 mg QDAY JANAY Administration Sodium Chloride 10 ml 06/21/21 17:39 06/29/21 22:14 Sodium Chloride 0.9% 10 Ml Flush Syringe IV 10 ml PRN PRN Administration LINE FLUSH Tramadol HCl 50 mg 06/21/21 17:39 Tramadol 50 Mg Tab PO Q6H PRN Pain, Moderate (4-6) Nutrition/Malnutrition Assess - Dietary Evaluation Nutrition/Malnutrition Findings: Nutrition Notes Start: 06/28/21 1 3:09 Freq: Status: Active Protocol: Document 06/28/21 13:10 DANIELLA (Rec: 06/28/21 13:13 DANIELLA [id number]) Nutrition Notes Need for Assessment generated from: LOS Initial or Follow up Brief Note Current Diet Regular Height 5 ft 3 in Weight 78.6 kg [place] Body Weight (kg) 52.27 BMI 30.7 Weight Status Obese Subjective/Other Information Pt screened for LOS. She has consumed 82% of meals since admission. Percent of energy/protein needs met: 100% energy and pro Burn Absent Trauma Absent Current % PO Good (75-100%) Minimum of two criteria No Is patient on ventilator? No Is Patient Ambulatory and/or Out of Bed No REE-([facility]-confined to bed) 1636.296 Kcal/Kg value to use for calculation 16 Approximate Energy Requirements Using 1258 kcal/Kg Calculation Used for Recommendations Kcal/kg Additional Notes Pro needs 0.8-1g/kg adjBW: 52- 65g/day Fluid needs 1ml/kcal Nutrition Intervention Revisit per MD consult or patient Sign Off request:
[2021-06-30] MEDS: hydrALAZINE 100 MG TAB PO SCH ×3 (10:11→22:15)
[2021-06-30] MEDS: levETIRAcetam 500 MG TAB PO SCH ×2 (10:12→22:15)
[2021-06-30] MEDS: CLOPIDOGREL 75 MG TAB PO SCH (10:12)
[2021-06-30] MEDS: METOPROLOL SUCCINATE XL 25 MG TAB PO SCH (10:12)
[2021-06-30] MEDS: RANOLAZINE ER 500 MG TAB 12HR PO SCH (10:12)
[2021-06-30] MEDS: ASPIRIN 81 MG TAB CHEW PO SCH (10:12)
[2021-06-30] MEDS: amLODIPine 10 MG TAB PO SCH (10:12)
[2021-06-30] MEDS: THIAMINE 100 MG in SODIUM CHLORIDE 0.9% 50 ML IV SCH (11:06)
--- NOTE | 2021-06-30 11:36 | Cat Scan Report ---
CT HEAD WITHOUT CONTRAST INDICATION : f/u abnormal MRI [rec by neurosurg]. TECHNIQUE: Axial imaging performed from the skull apex through the skull base without the use of con trast. Sagittal and coronal reformatted images. All CT scans at this location are performed using C T dose reduction for ALARA by means of automated exposure control. COMPARISON: CT head dated 06/21/2021. MR brain dated 06/29/2021. FINDINGS: Parenchyma: Evolving subacute ischemic infarcts in the bilateral thalami, left greater than right ap pear stable since 06/21/2021 exam. No new areas of diminished attenuation are identified. No acute hem orrhage or extra-axial fluid collection. Mild chronic white matter changes appear stable. Ventricles: Minimal increase in ventricular size is demonstrated since the previous exam. For instan ce, the right lateral ventricle has increased from 4 mm to 6 mm in thickness on the coronal images. T here is minimal dilatation of the temporal horns on today's exam as well. Bones: No acute osseous abnormality. Sinuses: Sinuses and mastoid air cells are clear. Soft tissues: Soft tissues including the orbits appear normal. IMPRESSION: Evolving subacute ischemic infarcts in both thalami. No new acute parenchymal abnormality . Minimal increase in lateral ventricular size is demonstrated suggesting some level of obstruction a t the level of the third ventricle due to mass effect. Signer Name: Isiah Cardoza Jr, MD Signed: 06/30/2021 10:05 AM Workstation Name: [id number]
--- NOTE | 2021-06-30 11:47 | Magnetic Resonance Report ---
. MR brain w con INDICATION / CLINICAL INFORMATION: 55 years Female; abnormal MRI [rec by neurosurg ]. TECHNIQUE: Multiplanar, multisequence MR images were obtained. COMPARISON: Unenhanced MRI - 06/29/2021 and pre and postcontrast MRI - 06/24/2021. FINDINGS: On today's exam, there is faint enhancement seen in the thalamic areas bilaterally - left greater mayra n right. On the FLAIR sequence, there are well-defined areas of increased signal surrounding areas of decrease d signal. These areas of decreased signal could be related to hemorrhage, described on unenhanced MRI from 06/29/2021. One other possibility is that fungal disease can cause susceptibility artifact. On today's diffusion sequence, there is only mild increased diffusion signal surrounding the areas of hemorrhage. The ADC map has essentially normalized in the right thalamic region and is largely maria de jesus lized on the left with only minimal positive findings in the area of presumed susceptibility artifact , which suggests that the diffusion and ADC changes may actually be artifactual. No other signs of abnormal enhancement are seen following contrast. There are no areas of new hemorrh age or significant change in mass effect with this finding. No signs of hydrocephalus appreciated. On thin cut postcontrast imaging, it appears that the internal cerebral veins are patent, suggesting the possibility that deep venous thrombosis as a possible etiology would be unlikely. IMPRESSION: 1. Overall, I believe findings to be related to a vascular event. However, other etiologies such as f ungal infection or viral encephalitis might be considered, as well. Low grade neoplasm might be consi deration, although I believe this is even less likely. If clinically warranted, lumbar puncture may b e of benefit. Signer Name: Rene Rodney MD, III Signed: 06/30/2021 10:35 AM Workstation Name: [id number]
--- NOTE | 2021-06-30 12:33 | Progress Note ---
Assessment and Plan Assessment and Plan 55 YO Female with Obesity, HTN presents to ED for evaluation. Patient is confused with diminished cognition at the time my evaluation is unable to provide history. Patient history taken from EMS staff, ED staff. EMS was summoned to a truck park when the patient was found in her vehicle unresponsive. 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 The patient was found by staff at the truck park unresponsive and covered in fecal material. - Patient Problems # Acute/Subacute encephalopathy -pt. is found in her truck unresponsive with fecal and urinary incontince -she is obtunded , and is able to move all limbs -Seizure can not be excluded -drug screen is unremarkable -CT brain is remarkable for bilateral Hypo attenuation at thalami? -started on ASA and Lipitor -MRI brain is suggestive of bilateral thalamic lesion with wide DD -Start on Thiamine IV - EEG today is remarkable for mild diffuse slowing ,possibility of post ictal and or drug effect can not be excluded -Seizure precaution -cut down Keppra to 250 mg bid -According to pt. today she had Hx of seizure ? but not on medication she is with hx of CVD and stent -she is still sluggish to respond and with no focal neurological deficit other than drowsiness and slurred speech - LP showed 1 wbcs with normal glucose and protein , with no sign to suggest encephalitis/ infection -Repeat MRI brain with gd is suggestive of bialteral thalamic lesion more noted left with hemorrhagic transformation and edema? doubt infection in light of a normal LP findings , Glioma vs venous thrombosis can not be excluded - ACH abs titer is pending ++ Will get urgent MRV brain to r/o venous thrombosis -- ++ Consider transfer to tertiary center ++ Started by ANABELLA yesterday on decadron # NSTEMI (non-ST elevated myocardial infarction) - elevated cardiac enzymes -Chest pain protocol: Serial cardiac enzymes, EKG, telemetry monitoring, therapeutic anticoagulation, echocardiogram, D-dimer # DVT prophylaxis -SCD to bilateral lower extremities while in bed, continue therapeutic anticoagulation will follow Subjective Date of service: 06/30/21 Principal diagnosis: Altered mental status Interval history: she is slightly better today move all limbs, follow simple command , no facial asymmetry , still drowsy and is with slurred speech MRI brain is same like CT ? bilateral thalamic hypodensity ? r/o anoxia? Inf ection? Wernicki encephalopathy placed on Keppra 250 mg bid and thiamine EEG is remarkable for diffuse slowing with possibility of drug effect vs post ictal can not be excluded UDS is unremarkable repeat MRI with gd is remarkable for bilateral thalamic lesions more left sided with hemorrhagic transformation and surrounding edema!! glioma vs sinus thrombosis can not be excluded Objective - Vital Sign Vital Signs - 12hr 06/30/21 06/30/21 06/30/21 05:53 08:04 10:00 Temperature 98.0 F 97.6 F Pulse Rate 82 68 Pulse Rate [ 77 Radial] Respiratory 18 16 18 Rate Blood Pressure 117/77 122/68 O2 Sat by Pulse 98 100 98 Oximetry 06/30/21 10:12 Temperature Pulse Rate Pulse Rate [ Radial] Respiratory Rate Blood Pressure 122/68 O2 Sat by Pulse Oximetry - General Apperance Constitutional: comfortable - EENT EENT: PERRL, mucous membranes moist - Respiratory Respiratory: chest non-tender, lungs clear, rhonchi - Cardiovascular Cardiovascular: regular rate, normal S1, normal S2 Extremities: no peripheral edema bilat, no clubbing, cyanosis - Gastrointestinal Gastrointestinal: normoactive bowel sounds - Integumentary Integumentary: normal - Neurologic Cranial nerve examination: PERRL, EOMI, other (limited upgaze bilateral ) Detailed motor examination: grossly full strength in - Laboratory Findings CBC and BMP: 06/28/21 09:01 06/28/21 09:02 Abnormal Lab Findings: Abnormal Labs 06/21/21 06/21/21 06/21/21 14:45 14:45 14:45 WBC 11.2 H RBC Hgb 14.4 H Hct 44.3 H Seg Neutrophils % INR 0.86 L APTT 24.1 L D-Dimer BUN Glucose 203 H POC Glucose Lactic Acid Alkaline Phosphatase 135 H Ammonia Total Creatine Kinase 173 H Troponin T 0.311 H* Cholesterol 286 H LDL Cholesterol Direct 178 H HDL Cholesterol 83 H Urine Blood Salicylates Acetaminophen 06/21/21 06/21/21 06/21/21 14:45 14:45 14:45 WBC RBC Hgb Hct Seg Neutrophils % INR APTT D-Dimer BUN Glucose POC Glucose Lactic Acid < 0.20 L Alkaline Phosphatase Ammonia 19.0 L Total Creatine Kinase Troponin T Cholesterol LDL Cholesterol Direct HDL Cholesterol Urine Blood Salicylates < 0.3 L Acetaminophen 06/21/21 06/21/21 06/21/21 14:45 14:45 17:44 WBC RBC Hgb Hct Seg Neutrophils % INR APTT D-Dimer 815.68 H BUN Glucose POC Glucose Lactic Acid Alkaline Phosphatase Ammonia Total Creatine Kinase Troponin T Cholesterol LDL Cholesterol Direct HDL Cholesterol Urine Blood Small A Salicylates Acetaminophen 5.0 L 06/21/21 06/22/21 06/23/21 23:16 18:41 00:13 WBC RBC Hgb Hct Seg Neutrophils % INR APTT D-Dimer BUN Glucose POC Glucose Lactic Acid Alkaline Phosphatase Ammonia Total Creatine Kinase Troponin T 0.395 H* D 0.340 H* 0.307 H* Cholesterol LDL Cholesterol Direct HDL Cholesterol Urine Blood Salicylates Acetaminophen 06/23/21 06/23/21 06/26/21 12:23 12:23 07:11 WBC RBC Hgb Hct Seg Neutrophils % 70.7 H INR APTT D-Dimer BUN Glucose 121 H POC Glucose Lactic Acid Alkaline Phosphatase Ammonia Total Creatine Kinase Troponin T 0.312 H* Cholesterol LDL Cholesterol Direct HDL Cholesterol Urine Blood Salicylates Acetaminophen 06/26/21 06/27/21 06/28/21 07:11 23:39 05:51 WBC RBC Hgb Hct Seg Neutrophils % INR APTT D-Dimer BUN 6 L Glucose 231 H POC Glucose 231 H 150 H Lactic Acid Alkaline Phosphatase Ammonia Total Creatine Kinase Troponin T Cholesterol LDL Cholesterol Direct HDL Cholesterol Urine Blood Salicylates Acetaminophen 06/28/21 06/28/21 06/28/21 09:01 09:02 11:54 WBC RBC 3.63 L Hgb Hct Seg Neutrophils % INR APTT D-Dimer BUN 5 L Glucose 208 H POC Glucose 178 H Lactic Acid Alkaline Phosphatase Ammonia Total Creatine Kinase Troponin T Cholesterol LDL Cholesterol Direct HDL Cholesterol Urine Blood Salicylates Acetaminophen 06/28/21 16:47 WBC RBC Hgb Hct Seg Neutrophils % INR APTT D-Dimer BUN Glucose POC Glucose 110 H Lactic Acid Alkaline Phosphatase Ammonia Total Creatine Kinase Troponin T Cholesterol LDL Cholesterol Direct HDL Cholesterol Urine Blood Salicylates Acetaminophen
--- NOTE | 2021-06-30 16:02 | Event Note ---
Date: 06/30/21 I called [facility] at [phone] and spoke with the transfer nurse Ms. Aguirre to transfer our patient Ms. Dell ac to [facility] for neurosurgical evaluation and for possible surgical intervention/biopsy of bilateral thalamic lesions/mass/glioma[on MRI] neurosurgeon Dr. Mark Watts and neurologist evaluated the patient and both recommended to transfer the patient to [facility] for higher level of care by [facility]. I briefly discussed with the patient's condition, imaging studies reports, neurosurgeon and neurologist evaluation and recommendations Ms. Aguirre took my telephone number and the contact information of Dr. Mark Watts and and said someone would call back .
--- NOTE | 2021-06-30 16:46 | Progress Note ---
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 Further neuro assessment and management in progress. Echocardiogram shows left ventricular ejection fraction of 45%, but negative contrast bubble study. Conservative cardiac management. (2) Coronary artery disease Current Visit: Yes Status: Acute Plan to address problem: Patient has a history of complex coronary artery disease with two-vessel coronary stenting 4 years ago at a hospital in [place]. Most recent follow-up stress test 6 months ago was negative, patient was reported to have exercised for 6 minutes of Parveen protocol. We will continue guideline directed medical therapy for coronary artery disease, and continue follow-up as indicated. Further cardiac evaluation and management will depend on clinical course. Subjective Date of service: 06/30/21 Principal diagnosis: Altered mental status Interval history: Patient is comfortable, no acute distress, no new cardiac events reported. Objective Vital Signs Temp Pulse Pulse Resp BP BP Pulse Ox 06/30/21 10:12 122/68 06/30/21 10:00 77 18 98 06/30/21 08:04 97.6 F 68 16 122/68 100 06/30/21 05:53 98.0 F 82 18 117/77 98 06/29/21 23:51 98.5 F 99 H 18 176/109 93 06/29/21 22:00 50 L 18 99 06/29/21 21:20 99.5 F 60 18 128/73 100 06/29/21 18:05 98.1 F 62 18 140/70 95 - Physical Examination General: No Apparent Distress, Other (Mildly confused) HEENT: Positive: PERRL Neck: Positive: neck supple Cardiac: Positive: Reg Rate and Rhythm Lungs: Positive: clear to auscultation Neuro: Positive: Grossly Intact Abdomen: Positive: Soft Skin: Positive: Clear Extremities: Absent: edema
[2021-06-30] MEDS: INSULIN LISPRO 100 UNIT/ML SUB-Q SCH ×2 (18:12→22:16)
--- NOTE | 2021-06-30 19:45 | Event Note ---
Date: 06/30/21 I called patient's brother ANA Vega at [phone] and discussed in detail patient's condition, tests and reports, imaging studies Consultants evaluation and recommendations, treatment plan and the plans of transferring the patient to [facility] for higher level of care. and poor prognosis. He had some questions I answered all of them, and encouraged him to call back if he has any new questions or concerns He also requested me to ask the nurse to call him at the time of the patient's transfer to [facility]. I informed the patient's night nurse Ms. Prado and requested her to call patient's brother Mr. Saulo Vega when the patient is ready to be transferred to [facility]. Ms. Prado verbalized understanding and agreed to inform the brother.
[2021-06-30] MEDS: ENOXAPARIN 40 MG/0.4 ML INJ SUB-Q SCH (22:17)
[2021-07-01] MEDS: dexAMETHasone 4 MG/ML VIAL IV SCH ×4 (00:30→18:32)
[2021-07-01] MEDS: INSULIN LISPRO 100 UNIT/ML SUB-Q SCH ×3 (07:50→18:26)
--- NOTE | 2021-07-01 07:53 | Progress Note ---
Assessment and Plan Assessment and plan: 55 YO Female with Obesity, HTN presents to ED for evaluation of altered mental status. EMS was summoned to a truck park when the patient was found in her vehicle unresponsive. The patient was found by staff at the truck park unresponsive and covered in fecal material. Patient was admitted and had extensive neuro work-up as mentioned below, evaluated and being managed by neurologist and by neurosurgeon. Patient had multiple imaging studies. Neurosurgeon and neurology recommended transfer to [facility] for higher level of care Initiated transfer to [facility] 06/30/2021 for higher level of care and management by [place] neurosurgical team. Patient was accepted by neurosurgeon Dr. Greenwood --Bilateral thalamic lesions on CT head and MRI brain ; There is concern for metabolic process vs thalamic glioma. Lumbar puncture/CSF analysis with normal findings[06/25/2021] Neurosurgeon Dr. Watts and neurologist , recommended repeat CT head without contrast and MRI brain with contrast 06/30/2021 Neurosurgeon recommended IV dexamethasone 4 mg every [address] head without contrast 06/30/2021; evolving subacute ischemic infarct in both thalami no new acute parenchymal abnormality, minimal increase in lateral ventricular size suggesting some level of obstruction at the level of third ventricle due to mass-effect MRI brain with contrast 06/30/2021; overall these findings to be related to vascular event other etiologies such as fungal infection or viral and capsulitis might be considered, Low-grade neoplasm might be considered less likely Lumbar puncture may be of benefit [06/25/2021 LP and CSF analysis normal]. --Acute encephalopathy ; present on admission with possible CVA vs encephalitis VS hydrocephalus -pt. was found in her truck unresponsive with fecal and urinary incontince: Possible postictal state following seizure ? -drug screen is unremarkable -CT brain is remarkable for bilateral Hypo attenuation at thalami? -started on ASA and Lipitor -MRI brain is suggestive of bilateral thalamic lesion with wide DD: -s/p LP, CSF with normal findings -Started on Thiamine IV - EEG w/o any epileptic wave, neuro following 06/29/2021 MRI Bilateral T2 hyperintense lesions of the bilateral thalami. Management per neurosurgery and neurology 06/30/[address] head without contrast, MRI with contrast per neurosurgery Report reviewed, as mentioned above. Neurology neurosurgery [place] pending av ailability of bed --Seizure cannot be excluded[per neurology] Seizure precaution, neurology evaluated, 250 mg of Keppra twice a day EEG no seizure activity, as needed Ativan, neuro work-up reviewed --Elevated troponin/NSTEMI type 2 : Cardiology evaluated the patient, Stress test 6 months ago was negative Patient has history of coronary artery disease s/p two-vessel coronary artery stenting 4 years ago Continue medical management --Dyslipidemia: Low-cholesterol diet, statin --Syncope: Syncope work-up reviewed CT scan showing bilateral thalamic infarcts. 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 --Hyperglycemia/type 2 diabetes mellitus High sugars partly due to IV steroids Accu-Chek sliding scale coverage ADA diet Long-acting insulin as neededHemoglobin A1c HbA1c 7.6% Diabetic diet education, diabetes disease education prior to discharge and patient is stable --DVT prophylaxis: subcu Lovenox Disposition; management per neurosurgery , neurology Accepted by [facility]/[place] neurosurgical team for transfer pending bed availability We will closely monitor patient and adjust the management as needed Senior Javascript Engineer recommendations noted and appreciated Brief history and daily hospital course: 55 YO Female with Obesity, HTN presents to ED for evaluation of altered mental status. EMS was summoned to a truck park when the patient was found in her vehicle unresponsive. The patient was found by staff at the truck park unresponsive and covered in fecal material. Patient had extensive neuro work-up as mentioned below, evaluated by neurologist and subsequently by neurosurgeon. Patient had multiple imaging studies Today 06/30/[address] head without contrast and MRI brain with contrast. Findings are as mentioned below. Will initiate transfer to [facility] for higher level care. 06/23: Remains lathergic and confused. drug screen is unremarkable, CT brain is remarkable for bilateral Hypo attenuation at thalami? cont on ASA and Lipitor MRI brain is pending, Started on Thiamine IV. EEG today is remarkable for mild diffuse slowing ,possibility of post ictal and or drug effect can not be excluded cont Seizure precaution and Keppra to 250 mg bid 06/24: Remains lethargic, MRI brain pending, continue Keppra twice daily. C ontinue to follow clinically with supportive care 06/25: MRI brain is suggestive of bilateral thalamic lesion with wide DD. s/p LP done today, protein and Glucose are normal with normal open pressure. Gram stain and Cs are pending , cell count is pending. Per neuro, if CSF study normal need to consider Neurosurgery opinion to r/o Hydrocephalus 06/26: patient was agitated earlier, placed on restraint. Cont iv fluid, cont AED. follow CSF study. has no fever or elevated white count, covid test is n egative 06/27: CSF study normal, HSV PCR pending, mental status improved - tolerating diet but very confused. Will consult ID for possible encephalitis, and also NS for possible hydrocephalus. 06/28: Mental status i,proving, more alert but remains confused. will monitor off restraint, d/c iv fluid as tolerating diet. discussed with NS and dr jim will see her. ID signed off as no infectious source so far, CSF study negative. Plan to repeat MRI brain. 06/29; repeat MRI brain scheduled for today. We will follow the findings and adjust the management as needed in consultation with neurology and neurosurgery 06/30; MRI brain with contrast, CT head without contrast ordered last evening where not done, will follow with radiology I will initiate the transfer process to [facility] to be evaluated by neurosurgical team 06/30/2021 neurosurgeon recommended transfer to [facility] neurosurgical team for higher level of care [place] neurosurgeon /accepted the patient pending availability of the bed,. I discussed patient's condition and the treatment and transfer plan with the patient's brother Mr. Saulo Watkins 07/01/2021; patient is alert and awake responding to simple verbal commands, confused Continue current management per neurology and neurosurgery, ready to be transferred to [facility]. I called the [place] transfer center, still waiting for bed availability [place] neurosurgeon /accepted the patient pending availability of the bed,. History Interval history: I seen and examined the patient at the bedside this morning Patient's chart and medications reviewed Patient is more alert and awake, confused but follows very simple commands appropriately Awaiting transfer to [facility] Hospitalist Physical - Constitutional Vitals: Temp Pulse Resp BP Pulse Ox 98.1 F 78 18 117/75 98 06/30/21 22:55 06/30/21 22:55 06/30/21 22:55 06/30/21 22:55 07/01/21 00:42 General appearance: Present: no acute distress, obese, other (Mildly confused, follows simple verbal commands .) - EENT Eyes: Present: PERRL, EOM intact - Neck Neck: Present: supple, normal ROM - Respiratory Respiratory effort: normal Respiratory: bilateral: diminished, negative: rales, rhonchi, wheezing - Cardiovascular Rhythm: regular Heart Sounds: Present: S1 & S2 - Extremities Extremities: no ischemia, No edema - Abdominal General gastrointestinal: soft, non-tender, non-distended, normal bowel sounds - Integumentary Integumentary: Present: clear, warm - Psychiatric Psychiatric: other (Confused at times, responds to simple verbal conversation) - Neurologic Neurologic: moves all extremities HEART Score - HEART Score Troponin: Troponin T 0.312 ng/mL (0.00-0.029) H* 06/23/21 12:23 Results - Labs CBC & Chem 7: 06/28/21 09:01 06/28/21 09:02 Labs: Laboratory Last Values WBC 7.8 K/mm3 (4.5-11.0) 06/28/21 09:01 RBC 3.63 M/mm3 (3.65-5.03) L 06/28/21 09:01 Hgb 11.8 gm/dl (10.1-14.3) 06/28/21 09:01 Hct 34.4 % (30.3-42.9) 06/28/21 09:01 MCV 95 fl (79-97) 06/28/21 09:01 MCH 32 pg (28-32) 06/28/21 09:01 MCHC 34 % (30-34) 06/28/21 09:01 RDW 13.5 % (13.2-15.2) 06/28/21 09:01 Plt Count 262 K/mm3 (140-440) 06/28/21 09:01 Lymph % (Auto) 22.6 % (13.4-35.0) 06/26/21 07:11 [place] % (Auto) 5.8 % (0.0-7.3) 06/26/21 07:11 Eos % (Auto) 0.4 % (0.0-4.3) 06/26/21 07:11 Baso % (Auto) 0.5 % (0.0-1.8) 06/26/21 07:11 Lymph # (Auto) 2.3 K/mm3 (1.2-5.4) 06/26/21 07:11 [place] # (Auto) 0.6 K/mm3 (0.0-0.8) 06/26/21 07:11 Eos # (Auto) 0.0 K/mm3 (0.0-0.4) 06/26/21 07:11 Baso # (Auto) 0.1 K/mm3 (0.0-0.1) 06/26/21 07:11 Seg Neutrophils % 70.7 % (40.0-70.0) H 06/26/21 07:11 Seg Neutrophils # 7.2 K/mm3 (1.8-7.7) 06/26/21 07:11 ESR 40 mm/Hr (0-20) 06/30/21 12:34 PT 12.7 Sec. (12.2-14.9) 06/21/21 14:45 INR 0.86 (0.87-1.13) L 06/21/21 14:45 APTT 24.1 Sec. (24.2-36.6) L 06/21/21 14:45 D-Dimer 815.68 ng/mlDDU (0-234) H 06/21/21 14:45 Sodium 142 mmol/L (137-145) 06/28/21 09:02 Potassium 3.7 mmol/L (3.6-5.0) 06/28/21 09:02 Chloride 105.9 mmol/L (98-107) 06/28/21 09:02 Carbon Dioxide 26 mmol/L (22-30) 06/28/21 09:02 Anion Gap 14 mmol/L 06/28/21 09:02 BUN 5 mg/dL (7-17) L 06/28/21 09:02 Creatinine 0.7 mg/dL (0.6-1.2) 06/28/21 09:02 Estimated GFR > 60 ml/min 06/28/21 09:02 BUN/Creatinine Ratio 7 % 06/28/21 09:02 Glucose 208 mg/dL (65-100) H 06/28/21 09:02 POC Glucose 373 mg/dL (70-105) H 06/30/21 20:59 Hemoglobin A1c 7.6 % (4-6) H 07/01/21 05:15 Lactic Acid < 0.20 mmol/L (0.7-2.0) L 06/21/21 14:45 Calcium 9.1 mg/dL (8.4-10.2) 06/28/21 09:02 Total Bilirubin 0.50 mg/dL (0.1-1.2) 06/21/21 14:45 Direct Bilirubin < 0.2 mg/dL (0-0.2) 06/21/21 14:45 Indirect Bilirubin 0.3 mg/dL 06/21/21 14:45 AST 21 units/L (5-40) 06/21/21 14:45 ALT 20 units/L (7-56) 06/21/21 14:45 Alkaline Phosphatase 135 units/L (35-129) H 06/21/21 14:45 Ammonia 19.0 umol/L (25-60) L 06/21/21 14:45 Total Creatine Kinase 173 units/L (30-135) H 06/21/21 14:45 Troponin T 0.312 ng/mL (0.00-0.029) H* 06/23/21 12:23 Total Protein 7.6 g/dL (6.3-8.2) 06/21/21 14:45 Albumin 4.1 g/dL (3.9-5) 06/21/21 14:45 Albumin/Globulin Ratio 1.2 % 06/21/21 14:45 Triglycerides 95 mg/dL (2-149) 06/21/21 14:45 Cholesterol 286 mg/dL (50-199) H 06/21/21 14:45 LDL Cholesterol Direct 178 mg/dL (50-130) H 06/21/21 14:45 HDL Cholesterol 83 mg/dL (40-59) H 06/21/21 14:45 Cholesterol/HDL Ratio 3.44 % 06/21/21 14:45 TSH 0.326 mlU/mL (0.270-4.200) 06/21/21 14:45 Urine Color Yellow (Yellow) 06/21/21 17:44 Urine Turbidity Clear (Clear) 06/21/21 17:44 Urine pH 7.0 (5.0-7.0) 06/21/21 17:44 Ur Specific [place] 1.020 (1.003-1.030) 06/21/21 17:44 Urine Protein <15 mg/dl mg/dL (Negative) 06/21/21 17:44 Urine Glucose (UA) Negative mg/dL (Negative) 06/21/21 17:44 Urine Ketones Negative mg/dL (Negative) 06/21/21 17:44 Urine Blood Small (Negative) A 06/21/21 17:44 Urine Nitrite Negative (Negative) 06/21/21 17:44 Urine Bilirubin Negative (Negative) 06/21/21 17:44 Urine Urobilinogen 1.0 mg/dL (<2.0) 06/21/21 17:44 Ur Leukocyte Esterase Negative (Negative) 06/21/21 17:44 Urine WBC (Auto) < 1.0 /HPF (0.0-6.0) 06/21/21 17:44 Urine RBC (Auto) < 1.0 /HPF (0.0-6.0) 06/21/21 17:44 CSF Appearance Clear 06/25/21 Unknown CSF Color Colorless 06/25/21 Unknown CSF WBC 2 /mm3 (1-10) 06/25/21 Unknown CSF RBC 1 /mm3 (0-0) 06/25/21 Unknown CSF Seg Neutrophils 5.3 % (0-6) 06/25/21 Unknown CSF Lymphocytes % 57.9 % (40-80) 06/25/21 Unknown CSF Reactive Lymphs Not Reportable 06/25/21 Unknown CSF Monocytes % 36.8 % (15-45) 06/25/21 Unknown CSF Eosinophils % Not Reportable 06/25/21 Unknown CSF Basophils Not Reportable 06/25/21 Unknown CSF Pathologist Review C 06/25/21 Unknown CSF Glucose 117 mg/dL 06/25/21 Unknown CSF Total Protein 34 mg/dL 06/25/21 Unknown CSF VDRL Nonreactive (Nonreactive) 06/25/21 Unknown Salicylates < 0.3 mg/dL (2.8-20.0) L 06/21/21 14:45 Urine Opiates Screen Negative 06/21/21 17:44 Urine Methadone Screen Negative 06/21/21 17:44 Acetaminophen 5.0 ug/mL (10.0-30.0) L 06/21/21 14:45 Ur Barbiturates Screen Negative 06/21/21 17:44 Ur Phencyclidine Scrn Negative 06/21/21 17:44 Ur Amphetamines Screen Negative 06/21/21 17:44 U Benzodiazepines Scrn Negative 06/21/21 17:44 Urine Cocaine Screen Negative 06/21/21 17:44 U Marijuana (THC) Screen Negative 06/21/21 17:44 Drugs of Abuse Note Disclamer 06/21/21 17:44 Plasma/Serum Alcohol < 0.01 % (0-0.07) 06/21/21 14:45 HSV I Specific Ab <0.90 Index (<0.90) 06/25/21 14:15 Blood Type O POSITIVE 06/21/21 14:45 Antibody Screen Negative 06/21/21 14:45 [place]/IV: Voiding Method Incontinent Active Medications - Current Medications Current Medications: Generic Name Dose Route Start Last Admin Trade Name Freq PRN Reason Stop Dose Admin Acetaminophen 650 mg 06/21/21 17:39 06/26/21 09:55 Acetaminophen 325 Mg Tab PO 650 mg Q6H PRN Administration Pain, Mild (1-3) Amlodipine Besylate 10 mg 06/28/21 18:00 06/30/21 10:12 Amlodipine 10 Mg Tab PO 10 mg QDAY JANAY Administration Aspirin 81 mg 06/28/21 18:00 06/30/21 10:12 Aspirin 81 Mg Tab Chew PO 81 mg QDAY JANAY Administration Atorvastatin Calcium 40 mg 06/21/21 22:00 06/30/21 22:15 Atorvastatin 40 Mg Tab PO 40 mg QHS JANAY Administration Bisacodyl 10 mg 06/21/21 17:39 Bisacodyl 10 Mg Rect Supp NE QDAY PRN Constipation Clonidine HCl 0.2 mg 06/27/21 12:00 06/27/21 13:20 Clonidine Tts 0.2 Mg/24 Hr Patch TD 0.2 mg O[place]a JANAY Administration Clopidogrel Bisulfate 75 mg 06/28/21 18:00 06/30/21 10:12 Clopidogrel 75 Mg Tab PO 75 mg QDAY JANAY Administration Dexamethasone 4 mg 06/29/21 19:00 07/01/21 06:00 Dexamethasone 4 Mg/Ml Vial IV 4 mg Q6HR JANAY Administration Enoxaparin Sodium 40 mg 06/27/21 22:00 06/30/21 22:17 Enoxaparin 40 Mg/0.4 Ml Inj SUB-Q 40 mg QDAY@2200 JANAY Administration Protocol Hydralazine HCl 10 mg 06/27/21 09:07 02/21/22 10:03 Hydralazine 10 Mg Tab PO 10 mg Q4H PRN Administration hypertension Hydralazine HCl 100 mg 06/28/21 20:00 06/30/21 22:15 Hydralazine 100 Mg Tab PO 100 mg TID JANAY Administration Hydromorphone HCl 0.5 mg 06/21/21 17:39 Hydromorphone 1 Mg/1 Ml Inj IV Q23H PRN Pain , Severe (7-10) Thiamine HCl 100 mg/ Sodium 51 mls @ 100 mls/hr 06/29/21 10:00 06/30/21 11:06 Chloride IV 100 mls/hr QDAY [facility] Administration Insulin Human Isoph/Insulin Regular 12 unit 07/01/21 08:00 Insulin Nph/Regular 70/30 Inj SUB-Q BIDDIAB JANAY Insulin Human Lispro 0 unit 06/30/21 17:30 06/30/21 22:16 Insulin Lispro 100 Unit/Ml SUB-Q 10 unit ACHS [facility] Administration Protocol Levetiracetam 250 mg 06/28/21 10:00 06/30/21 22:15 Levetiracetam 500 Mg Tab PO 250 mg BID JANAY Administration Magnesium Hydroxide 30 ml 06/21/21 17:39 Magnesium Hydroxide (Mom) Oral Liqd Udc PO Q4H PRN Constipation Metoclopramide HCl 10 mg 06/21/21 17:39 Metoclopramide 10 Mg Tab PO Q6H PRN Nausea And Vomiting Metoprolol Succinate 25 mg 06/27/21 10:00 06/30/21 10:12 Metoprolol Succinate Xl 25 Mg Tab PO 25 mg QDAY JANAY Administration Nitroglycerin 0.4 mg 06/21/21 17:39 Nitroglycerin 0.4 Mg Tab Subl SL Q5M PRN Chest Pain Ondansetron HCl 4 mg 06/21/21 17:39 Ondansetron 4 Mg/2 Ml Inj IV Q8H PRN Nausea And Vomiting Oxycodone/Acetaminophen 1 tab 06/21/21 17:39 Oxycodone /Acetaminophen 5-325mg Tab PO Q16H PRN Pain, Moderate (4-6) Promethazine HCl 25 mg 06/21/21 17:39 Promethazine 25 Mg Rect Supp NE Q6H PRN Nausea And Vomiting Ranolazine 500 mg 06/28/21 18:00 06/30/21 10:12 Ranolazine Er 500 Mg Tab 12hr PO 500 mg QDAY JANAY Administration Sodium Chloride 10 ml 06/21/21 17:39 06/29/21 22:14 Sodium Chloride 0.9% 10 Ml Flush Syringe IV 10 ml PRN PRN Administration LINE FLUSH Tramadol HCl 50 mg 06/21/21 17:39 Tramadol 50 Mg Tab PO Q6H PRN Pain, Moderate (4-6) Nutrition/Malnutrition Assess - Dietary Evaluation Nutrition/Malnutrition Findings: Nutrition Notes Start: 06/28/21 13:09 Freq: Status: Active Protocol: Document 06/28/21 13:10 DANIELLA (Rec: 06/28/21 13:13 DANIELLA [id number]) Nutrition Notes Need for Assessment generated from: LOS Initial or Follow up Brief Note Current Diet Regular Height 5 ft 3 in Weight 78.6 kg [place] Body Weight (kg) 52.27 BMI 30.7 Weight Status Obese Subjective/Other Information Pt screened for LOS. She has consumed 82% of meals since admission. Percent of energy/protein needs met: 100% energy and pro Burn Absent Trauma Absent Current % PO Good (75-100%) Minimum of two criteria No Is patient on ventilator? No Is Patient Ambulatory and/or Out of Bed No REE-([facility]-confined to bed) 1636.296 Kcal/Kg value to use for calculation 16 Approximate Energy Requirements Using 1258 kcal/Kg Calculation Used for Recommendations Kcal/kg Additional Notes Pro needs 0.8-1g/kg adjBW: 52- 65g/day Fluid needs 1ml/kcal Nutrition Intervention Revisit per MD consult or patient Sign Off request:
[2021-07-01] MEDS: INSULIN NPH/REGULAR 70/30 INJ SUB-Q SCH ×2 (08:38→18:25)
--- NOTE | 2021-07-01 11:10 | Progress Note ---
Assessment and Plan Assessment and Plan 55 YO Female with Obesity, HTN presents to ED for evaluation. Patient is confused with diminished cognition at the time my evaluation is unable to provide history. Patient history taken from EMS staff, ED staff. EMS was summoned to a truck park when the patient was found in her vehicle unresponsive. 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 The patient was found by staff at the truck park unresponsive and covered in fecal material. - Patient Problems # Acute/Subacute encephalopathy -pt. is found in her truck unresponsive with fecal and urinary incontince -she is obtunded , and is able to move all limbs -Seizure can not be excluded -drug screen is unremarkable -CT brain is remarkable for bilateral Hypo attenuation at thalami? -started on ASA and Lipitor -MRI brain is suggestive of bilateral thalamic lesion with wide DD -Start on Thiamine IV - EEG today is remarkable for mild diffuse slowing ,possibility of post ictal and or drug effect can not be excluded -Seizure precaution -cut down Keppra to 250 mg bid -According to pt. today she had Hx of seizure ? but not on medication she is with hx of CVD and stent -she is still sluggish to respond and with no focal neurological deficit other than drowsiness and slurred speech - LP showed 1 wbcs with normal glucose and protein , with no sign to suggest encephalitis/ infection -Repeat MRI brain with gd is suggestive of bialteral thalamic lesion more noted left with hemorrhagic transformation and edema? doubt infection in light of a normal LP findings , Glioma vs venous thrombosis can not be excluded - ACH abs titer is pending ++ Will get urgent MRV brain to r/o venous thrombosis -- ++ Consider transfer to tertiary center ++ Started by ANABELLA yesterday on decadron # NSTEMI (non-ST elevated myocardial infarction) - elevated cardiac enzymes -Chest pain protocol: Serial cardiac enzymes, EKG, telemetry monitoring, therapeutic anticoagulation, echocardiogram, D-dimer # DVT prophylaxis -SCD to bilateral lower extremities while in bed, continue therapeutic anticoagulation will follow as needed Subjective Date of service: 07/01/21 Principal diagnosis: Altered mental status Interval history: she is slightly better today move all limbs, follow simple command , no facial asymmetry , still drowsy and is with slurred speech MRI brain is same like CT ? bilateral thalamic hypodensity ? r/o anoxia? 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 placed on Keppra 250 mg bid and thiamine EEG is remarkable for diffuse slowing with possibility of drug effect vs post ictal can not be excluded UDS is unremarkable repeat MRI with gd is remarkable for bilateral thalamic lesions more left sided with hemorrhagic transformation and surrounding edema!! glioma vs sinus thrombosis can not be excluded Objective - Vital Sign Vital Signs - 12hr 07/01/21 07/01/21 07/01/21 00:42 03:56 07:55 Temperature 97.4 F L 97.9 F Pulse Rate 52 L 63 Respiratory 16 20 Rate Blood Pressure 112/61 126/73 O2 Sat by Pulse 98 100 100 Oximetry - General Apperance Constitutional: comfortable - EENT EENT: PERRL, mucous membranes moist - Respiratory Respiratory: chest non-tender, lungs clear, rhonchi - Cardiovascular Cardiovascular: regular rate, normal S1, normal S2 Extremities: no peripheral edema bilat, no clubbing, cyanosis - Gastrointestinal Gastrointestinal: normoactive bowel sounds - Integumentary Integumentary: normal - Neurologic Cranial nerve examination: PERRL, EOMI, other (limited upgaze and down gaze pupils reactive bialteral,) Detailed motor examination: grossly full strength in - Laboratory Findings CBC and BMP: 06/28/21 09:01 06/28/21 09:02 Abnormal Lab Findings: Abnormal Labs 06/21/21 06/21/21 06/21/21 14:45 14:45 14:45 WBC 11.2 H RBC Hgb 14.4 H Hct 44.3 H Seg Neutrophils % INR 0.86 L APTT 24.1 L D-Dimer BUN Glucose 203 H POC Glucose Hemoglobin A1c Lactic Acid Alkaline Phosphatase 135 H Ammonia Total Creatine Kinase 173 H Troponin T 0.311 H* Cholesterol 286 H LDL Cholesterol Direct 178 H HDL Cholesterol 83 H Urine Blood Salicylates Acetaminophen 06/21/21 06/21/21 06/21/21 14:45 14:45 14:45 WBC RBC Hgb Hct Seg Neutrophils % INR APTT D-Dimer BUN Glucose POC Glucose Hemoglobin A1c Lactic Acid < 0.20 L Alkaline Phosphatase Ammonia 19.0 L Total Creatine Kinase Troponin T Cholesterol LDL Cholesterol Direct HDL Cholesterol Urine Blood Salicylates < 0.3 L Acetaminophen 06/21/21 06/21/21 06/21/21 14:45 14:45 17:44 WBC RBC Hgb Hct Seg Neutrophils % INR APTT D-Dimer 815.68 H BUN Glucose POC Glucose Hemoglobin A1c Lactic Acid Alkaline Phosphatase Ammonia Total Creatine Kinase Troponin T Cholesterol LDL Cholesterol Direct HDL Cholesterol Urine Blood Small A Salicylates Acetaminophen 5.0 L 06/21/21 06/22/21 06/23/21 23:16 18:41 00:13 WBC RBC Hgb Hct Seg Neutrophils % INR APTT D-Dimer BUN Glucose POC Glucose Hemoglobin A1c Lactic Acid Alkaline Phosphatase Ammonia Total Creatine Kinase Troponin T 0.395 H* D 0.340 H* 0.307 H* Cholesterol LDL Cholesterol Direct HDL Cholesterol Urine Blood Salicylates Acetaminophen 06/23/21 06/23/21 06/26/21 12:23 12:23 07:11 WBC RBC Hgb Hct Seg Neutrophils % 70.7 H INR APTT D-Dimer BUN Glucose 121 H POC Glucose Hemoglobin A1c Lactic Acid Alkaline Phosphatase Ammonia Total Creatine Kinase Troponin T 0.312 H* Cholesterol LDL Cholesterol Direct HDL Cholesterol Urine Blood Salicylates Acetaminophen 06/26/21 06/27/21 06/28/21 07:11 23:39 05:51 WBC RBC Hgb Hct Seg Neutrophils % INR APTT D-Dimer BUN 6 L Glucose 231 H POC Glucose 231 H 150 H Hemoglobin A1c Lactic Acid Alkaline Phosphatase Ammonia Total Creatine Kinase Troponin T Cholesterol LDL Cholesterol Direct HDL Cholesterol Urine Blood Salicylates Acetaminophen 06/28/21 06/28/21 06/28/21 09:01 09:02 11:54 WBC RBC 3.63 L Hgb Hct Seg Neutrophils % INR APTT D-Dimer BUN 5 L Glucose 208 H POC Glucose 178 H Hemoglobin A1c Lactic Acid Alkaline Phosphatase Ammonia Total Creatine Kinase Troponin T Cholesterol LDL Cholesterol Direct HDL Cholesterol Urine Blood Salicylates Acetaminophen 06/28/21 06/30/21 06/30/21 16:47 16:24 20:59 WBC RBC Hgb Hct Seg Neutrophils % INR APTT D-Dimer BUN Glucose POC Glucose 110 H 320 H 373 H Hemoglobin A1c Lactic Acid Alkaline Phosphatase Ammonia Total Creatine Kinase Troponin T Cholesterol LDL Cholesterol Direct HDL Cholesterol Urine Blood Salicylates Acetaminophen 07/01/21 07/01/21 05:15 07:53 WBC RBC Hgb Hct Seg Neutrophils % INR APTT D-Dimer BUN Glucose POC Glucose 309 H Hemoglobin A1c 7.6 H Lactic Acid Alkaline Phosphatase Ammonia Total Creatine Kinase Troponin T Cholesterol LDL Cholesterol Direct HDL Cholesterol Urine Blood Salicylates Acetaminophen
[2021-07-01] MEDS: levETIRAcetam 500 MG TAB PO SCH ×2 (11:37→22:00)
[2021-07-01] MEDS: ASPIRIN 81 MG TAB CHEW PO SCH (11:37)
[2021-07-01] MEDS: amLODIPine 10 MG TAB PO SCH (11:38)
[2021-07-01] MEDS: hydrALAZINE 100 MG TAB PO SCH ×3 (11:38→20:00)
[2021-07-01] MEDS: RANOLAZINE ER 500 MG TAB 12HR PO SCH (11:38)
[2021-07-01] MEDS: METOPROLOL SUCCINATE XL 25 MG TAB PO SCH (11:38)
[2021-07-01] MEDS: CLOPIDOGREL 75 MG TAB PO SCH (11:38)
[2021-07-01] MEDS: THIAMINE 100 MG in SODIUM CHLORIDE 0.9% 50 ML IV SCH (11:40)
--- NOTE | 2021-07-01 14:08 | Event Note ---
Date: 07/01/21 I called [place] transfer center and discussed the status with the transfer nurse. She reported that patient has been accepted for transfer, pending availability of the floor bed. Neurosurgeon Dr. Daniel Watts already discussed with accepting [place] neurosurgeon Dr. Krystyna Clarke. He will continue to follow the transfer status.
--- NOTE | 2021-07-01 17:00 | Magnetic Resonance Report ---
MR MRA/MRV head wo/w con INDICATION / CLINICAL INFORMATION: lesion in thalamus,. TECHNIQUE: MRA of the head. 3-D/MIP reformats postprocessed. Percentage stenosis is determined by direct quantit ative measurements of distal internal carotid artery diameter compared with normal reference segments or by criteria similar to NASCET where applicable. COMPARISON: None available. FINDINGS: MRA HEAD: 2-D [id number] imaging essentially nondiagnostic. The vessels were evaluated on postcontrast imag ing. Intracranial vertebral arteries: No occlusion or significant stenosis. Basilar artery: No occlusion or significant stenosis. Posterior cerebral arteries: No occlusion or significant stenosis. Intracranial internal carotid arteries: No occlusion or significant stenosis. Anterior cerebral arteries: No occlusion or significant stenosis. Middle cerebral arteries: No occlusion or significant stenosis. No aneurysm. Additional findings: There is mild patchy and peripheral enhancement of the bilateral thalamic lesion s as seen on prior exam. IMPRESSION: 1. No significant stenosis or occlusion. 2. Persistent patchy and peripheral enhancement of the bilateral thalamic lesions. This is better danica luated on prior MRI and differential considerations remain the same. Please see that report. Signer Name: Anand Martinez MD Signed: 07/01/2021 4:54 PM Workstation Name: [id number]
[2021-07-01] MEDS: ENOXAPARIN 40 MG/0.4 ML INJ SUB-Q SCH (22:00)
[2021-07-02] MEDS: amLODIPine 10 MG TAB PO SCH (09:47)
[2021-07-02] MEDS: RANOLAZINE ER 500 MG TAB 12HR PO SCH (09:47)
[2021-07-02] MEDS: METOPROLOL SUCCINATE XL 25 MG TAB PO SCH (09:47)
[2021-07-02] MEDS: ASPIRIN 81 MG TAB CHEW PO SCH (09:47)
[2021-07-02] MEDS: INSULIN NPH/REGULAR 70/30 INJ SUB-Q SCH ×2 (09:48→17:23)
[2021-07-02] MEDS: levETIRAcetam 500 MG TAB PO SCH ×2 (09:48→22:07)
[2021-07-02] MEDS: CLOPIDOGREL 75 MG TAB PO SCH (09:48)
[2021-07-02] MEDS: hydrALAZINE 100 MG TAB PO SCH ×3 (09:48→22:07)
[2021-07-02] MEDS: THIAMINE 100 MG in SODIUM CHLORIDE 0.9% 50 ML IV SCH (09:48)
--- NOTE | 2021-07-02 10:14 | Progress Note ---
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 Further neuro assessment and management in progress. Echocardiogram shows left ventricular ejection fraction of 45%, but negative contrast bubble study. Conservative cardiac management. (2) Coronary artery disease Current Visit: Yes Status: Acute Plan to address problem: Patient has a history of complex coronary artery disease with two-vessel coronary stenting 4 years ago at a hospital in [place]. Most recent follow-up stress test 6 months ago was negative, patient was reported to have exercised for 6 minutes of Parveen protocol. We will continue guideline directed medical therapy for coronary artery disease, and continue follow-up as indicated. Further cardiac evaluation and management will depend on clinical course. Subjective Date of service: 07/02/21 Principal diagnosis: Altered mental status Interval history: Patient is comfortable, no acute distress, no new cardiac events reported. Awaiting planned transfer to [facility] neurosurgery service. Objective Vital Signs Temp Pulse Resp BP Pulse Ox 07/02/21 09:47 66 127/78 07/02/21 07:42 97.4 F L 66 16 127/78 99 07/02/21 04:38 97.4 F L 49 L 16 111/68 98 07/02/21 00:00 97 07/01/21 23:24 97.4 F L 68 16 150/87 100 07/01/21 19:59 97.1 F L 20 135/70 07/01/21 15:47 98.2 F 61 20 102/56 100 07/01/21 13:48 97.7 F 83 20 157/87 97 07/01/21 12:00 98 - Physical Examination General: No Apparent Distress, Other (Mildly confused) HEENT: Positive: PERRL Neck: Positive: neck supple Cardiac: Positive: Reg Rate and Rhythm Lungs: Positive: clear to auscultation Neuro: Positive: Grossly Intact Abdomen: Positive: Soft Skin: Positive: Clear Extremities: Absent: edema
[2021-07-02] MEDS: INSULIN LISPRO 100 UNIT/ML SUB-Q SCH ×3 (12:17→22:08)
[2021-07-02] MEDS: dexAMETHasone 4 MG/ML VIAL IV SCH ×2 (12:18→17:24)
--- NOTE | 2021-07-02 17:41 | Progress Note ---
Assessment and Plan Assessment and plan: 55 YO Female with Obesity, HTN presents to ED for evaluation of altered mental status. EMS was summoned to a truck park when the patient was found in her vehicle unresponsive. The patient was found by staff at the truck park unresponsive and covered in fecal material. Patient was admitted and had extensive neuro work-up as mentioned below, evaluated and being managed by neurologist and by neurosurgeon. Patient had multiple imaging studies. Neurosurgeon and neurology recommended transfer to [facility] for higher level of care Initiated transfer to [facility] 06/30/2021 for higher level of care and management by [place] neurosurgical team. Patient was accepted by neurosurgeon Dr. Greenwood pending availability of bed. --Bilateral thalamic lesions on CT head and MRI brain ; There is concern for metabolic process vs thalamic glioma. Lumbar puncture/CSF analysis with normal findings[06/25/2021] Neurosurgeon Dr. Watts and neurologist , recommended repeat CT head without contrast and MRI brain with contrast 06/30/2021 Neurosurgeon recommended IV dexamethasone 4 mg every [address] head without contrast 06/30/2021; evolving subacute ischemic infarct in both thalami no new acute parenchymal abnormality, minimal increase in lateral ventricular size suggesting some level of obstruction at the level of third ventricle due to mass-effect MRI brain with contrast 06/30/2021; overall these findings to be related to vascular event other etiologies such as fungal infection or viral and capsulitis might be considered, Low-grade neoplasm might be considered less likely Lumbar puncture may be of benefit [06/25/2021 LP and CSF analysis normal]. --Acute encephalopathy ; present on admission with possible CVA vs encephalitis VS hydrocephalus -pt. was found in her truck unresponsive with fecal and urinary incontince: Possible postictal state following seizure ? -drug screen is unremarkable -CT brain is remarkable for bilateral Hypo attenuation at thalami? -started on ASA and Lipitor -MRI brain is suggestive of bilateral thalamic lesion with wide DD: -s/p LP, CSF with normal findings -Started on Thiamine IV - EEG w/o any epileptic wave, neuro following 06/29/2021 MRI Bilateral T2 hyperintense lesions of the bilateral thalami. Management per neurosurgery and neurology 06/30/[address] head without contrast, MRI with contrast per neurosurgery Report reviewed, as mentioned above. Neu[place] neurosurgery [place] availability of bed --Seizure cannot be excluded[per neurology] Seizure precaution, neurology evaluated, 250 mg of Keppra twice a day EEG no seizure activity, as needed Ativan, neuro work-up reviewed --Elevated troponin/NSTEMI type 2 : Cardiology evaluated the patient, Stress test 6 months ago was negative Patient has history of coronary artery disease s/p two-vessel coronary artery stenting 4 years ago Continue medical management --Dyslipidemia: Low-cholesterol diet, statin --Syncope: Syncope work-up reviewed CT scan showing bilateral thalamic infarcts. 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 --Hyperglycemia/type 2 diabetes mellitus High sugars partly due to IV steroids Accu-Chek sliding scale coverage ADA diet Long-acting insulin as neededHemoglobin A1c HbA1c 7.6% Diabetic diet education, diabetes disease education prior to discharge and patient is stable --DVT prophylaxis: subcu Lovenox Disposition; management per neurosurgery , neurology Accepted by [facility]/[place] neurosurgical team for transfer pending bed availability We will closely monitor patient and adjust the management as needed Railways Assistant recommendations noted and appreciated Brief history and daily hospital course: 55 YO Female with Obesity, HTN presents to ED for evaluation of altered mental status. EMS was summoned to a truck park when the patient was found in her vehicle unresponsive. The patient was found by staff at the truck park unresponsive and covered in fecal material. Patient had extensive neuro work-up as mentioned below, evaluated by neurologist and subsequently by neurosurgeon. Patient had multiple imaging studies Today 06/30/[address] head without contrast and MRI brain with contrast. Findings are as mentioned below. Will initiate transfer to [facility] for higher level care. 06/23: Remains lathergic and confused. drug screen is unremarkable, CT brain is remarkable for bilateral Hypo attenuation at thalami? cont on ASA and Lipitor MRI brain is pending, Started on Thiamine IV. EEG today is remarkable for mild diffuse slowing ,possibility of post ictal and or drug effect can not be exclud ed cont Seizure precaution and Keppra to 250 mg bid 06/24: Remains lethargic, MRI brain pending, continue Keppra twice daily. Continue to follow clinically with supportive care 06/25: MRI brain is suggestive of bilateral thalamic lesion with wide DD. s/p LP done today, protein and Glucose are normal with normal open pressure. Gram stain and Cs are pending , cell count is pending. Per neuro, if CSF study normal need to consider Neurosurgery opinion to r/o Hydrocephalus 06/26: patient was agitated earlier, placed on restraint. Cont iv fluid, cont AED. follow CSF study. has no fever or elevated white count, covid test is negative 06/27: CSF study normal, HSV PCR pending, mental status improved - tolerating diet but very confused. Will consult ID for possible encephalitis, and also NS for possible hydrocephalus. 06/28: Mental status i,proving, more alert but remains confused. will monitor off restraint, d/c iv fluid as tolerating diet. discussed with NS and dr jim will see her. ID signed off as no infectious source so far, CSF study negative. Plan to repeat MRI brain. 06/29; repeat MRI brain scheduled for today. We will follow the findings and adjust the management as needed in consultation with neurology and neurosurgery 06/30; MRI brain with contrast, CT head without contrast ordered last evening where not done, will follow with radiology I will initiate the transfer process to [facility] to be evaluated by neurosurgical team 06/30/2021 neurosurgeon recommended transfer to [facility] neurosurgical team for higher level of care [place] neurosurgeon /accepted the patient pending availability of the bed,. I discussed patient's condition and the treatment and transfer plan with the patient's brother Mr. Saulo Watkins 07/01/2021; patient is alert and awake responding to simple verbal commands, confused Continue current management per neurology and neurosurgery, ready to be transferred to [facility]. I called the [place] transfer center, still waiting for bed availability [facility] neurosurgeon /accepted the patient pending availability of the bed,. 07/02; patient was accepted by [facility] and [place] neurosurgeon Dr. Stout Pending availability of the bed, neurologist and neurosurgery following History Interval history: Labs I have have seen and examined the patient at the bedside Patient's chart and medications reviewed Patient feels better alert and awake Confused at times, some visual problems per nurse Patient was accepted by [facility]/[place] neurosurgery team Pending availability of bed Hospitalist Physical - Constitutional Vitals: Temp Pulse Resp BP Pulse Ox 97.6 F 53 L 16 118/83 98 07/02/21 16:08 07/02/21 11:20 07/02/21 16:08 07/02/21 16:08 07/02/21 11:20 General appearance: Present: no acute distress, obese, other (Mildly confused, follows simple verbal commands .) - EENT Eyes: Present: PERRL, EOM intact - Neck Neck: Present: supple, normal ROM - Respiratory Respiratory effort: normal Respiratory: bilateral: diminished, negative: rales, rhonchi, wheezing - Cardiovascular Rhythm: regular Heart Sounds: Present: S1 & S2 - Extremities Extremities: no ischemia, No edema - Abdominal General gastrointestinal: soft, non-tender, non-distended - Integumentary Integumentary: Present: clear, warm - Psychiatric Psychiatric: other (Confused at times) - Neurologic Neurologic: moves all extremities HEART Score - HEART Score Troponin: Troponin T 0.312 ng/mL (0.00-0.029) H* 06/23/21 12:23 Results - Labs CBC & Chem 7: 06/28/21 09:01 06/28/21 09:02 Labs: Laboratory Last Values WBC 7.8 K/mm3 (4.5-11.0) 06/28/21 09:01 RBC 3.63 M/mm3 (3.65-5.03) L 06/28/21 09:01 Hgb 11.8 gm/dl (10.1-14.3) 06/28/21 09:01 Hct 34.4 % (30.3-42.9) 06/28/21 09:01 MCV 95 fl (79-97) 06/28/21 09:01 MCH 32 pg (28-32) 06/28/21 09:01 MCHC 34 % (30-34) 06/28/21 09:01 RDW 13.5 % (13.2-15.2) 06/28/21 09:01 Plt Count 262 K/mm3 (140-440) 06/28/21 09:01 Lymph % (Auto) 22.6 % (13.4-35.0) 06/26/21 07:11 Ramsey % (Auto) 5.8 % (0.0-7.3) 06/26/21 07:11 Eos % (Auto) 0.4 % (0.0-4.3) 06/26/21 07:11 Baso % (Auto) 0.5 % (0.0-1.8) 06/26/21 07:11 Lymph # (Auto) 2.3 K/mm3 (1.2-5.4) 06/26/21 07:11 Ramsey # (Auto) 0.6 K/mm3 (0.0-0.8) 06/26/21 07:11 Eos # (Auto) 0.0 K/mm3 (0.0-0.4) 06/26/21 07:11 Baso # (Auto) 0.1 K/mm3 (0.0-0.1) 06/26/21 07:11 Seg Neutrophils % 70.7 % (40.0-70.0) H 06/26/21 07:11 Seg Neutrophils # 7.2 K/mm3 (1.8-7.7) 06/26/21 07:11 ESR 40 mm/Hr (0-20) 06/30/21 12:34 PT 12.7 Sec. (12.2-14.9) 06/21/21 14:45 INR 0.86 (0.87-1.13) L 06/21/21 14:45 APTT 24.1 Sec. (24.2-36.6) L 06/21/21 14:45 D-Dimer 815.68 ng/mlDDU (0-234) H 06/21/21 14:45 Sodium 142 mmol/L (137-145) 06/28/21 09:02 Potassium 3.7 mmol/L (3.6-5.0) 06/28/21 09:02 Chloride 105.9 mmol/L (98-107) 06/28/21 09:02 Carbon Dioxide 26 mmol/L (22-30) 06/28/21 09:02 Anion Gap 14 mmol/L 06/28/21 09:02 BUN 5 mg/dL (7-17) L 06/28/21 09:02 Creatinine 0.7 mg/dL (0.6-1.2) 06/28/21 09:02 Estimated GFR > 60 ml/min 06/28/21 09:02 BUN/Creatinine Ratio 7 % 06/28/21 09:02 Glucose 208 mg/dL (65-100) H 06/28/21 09:02 POC Glucose 135 mg/dL (70-105) H 07/02/21 16:05 Hemoglobin A1c 7.6 % (4-6) H 07/01/21 05:15 Lactic Acid < 0.20 mmol/L (0.7-2.0) L 06/21/21 14:45 Calcium 9.1 mg/dL (8.4-10.2) 06/28/21 09:02 Total Bilirubin 0.50 mg/dL (0.1-1.2) 06/21/21 14:45 Direct Bilirubin < 0.2 mg/dL (0-0.2) 06/21/21 14:45 Indirect Bilirubin 0.3 mg/dL 06/21/21 14:45 AST 21 units/L (5-40) 06/21/21 14:45 ALT 20 units/L (7-56) 06/21/21 14:45 Alkaline Phosphatase 135 units/L (35-129) H 06/21/21 14:45 Ammonia 19.0 umol/L (25-60) L 06/21/21 14:45 Total Creatine Kinase 173 units/L (30-135) H 06/21/21 14:45 Troponin T 0.312 ng/mL (0.00-0.029) H* 06/23/21 12:23 Total Protein 7.6 g/dL (6.3-8.2) 06/21/21 14:45 Albumin 4.1 g/dL (3.9-5) 06/21/21 14:45 Albumin/Globulin Ratio 1.2 % 06/21/21 14:45 Triglycerides 95 mg/dL (2-149) 06/21/21 14:45 Cholesterol 286 mg/dL (50-199) H 06/21/21 14:45 LDL Cholesterol Direct 178 mg/dL (50-130) H 06/21/21 14:45 HDL Cholesterol 83 mg/dL (40-59) H 06/21/21 14:45 Cholesterol/HDL Ratio 3.44 % 06/21/21 14:45 TSH 0.326 mlU/mL (0.270-4.200) 06/21/21 14:45 Urine Color Yellow (Yellow) 06/21/21 17:44 Urine Turbidity Clear (Clear) 06/21/21 17:44 Urine pH 7.0 (5.0-7.0) 06/21/21 17:44 Ur Specific [place] 1.020 (1.003-1.030) 06/21/21 17:44 Urine Protein <15 mg/dl mg/dL (Negative) 06/21/21 17:44 Urine Glucose (UA) Negative mg/dL (Negative) 06/21/21 17:44 Urine Ketones Negative mg/dL (Negative) 06/21/21 17:44 Urine Blood Small (Negative) A 06/21/21 17:44 Urine Nitrite Negative (Negative) 06/21/21 17:44 Urine Bilirubin Negative (Negative) 06/21/21 17:44 Urine Urobilinogen 1.0 mg/dL (<2.0) 06/21/21 17:44 Ur Leukocyte Esterase Negative (Negative) 06/21/21 17:44 Urine WBC (Auto) < 1.0 /HPF (0.0-6.0) 06/21/21 17:44 Urine RBC (Auto) < 1.0 /HPF (0.0-6.0) 06/21/21 17:44 CSF Appearance Clear 06/25/21 Unknown CSF Color Colorless 06/25/21 Unknown CSF WBC 2 /mm3 (1-10) 06/25/21 Unknown CSF RBC 1 /mm3 (0-0) 06/25/21 Unknown CSF Seg Neutrophils 5.3 % (0-6) 06/25/21 Unknown CSF Lymphocytes % 57.9 % (40-80) 06/25/21 Unknown CSF Reactive Lymphs Not Reportable 06/25/21 Unknown CSF Monocytes % 36.8 % (15-45) 06/25/21 Unknown CSF Eosinophils % Not Reportable 06/25/21 Unknown CSF Basophils Not Reportable 06/25/21 Unknown CSF Pathologist Review C 06/25/21 Unknown CSF Glucose 117 mg/dL 06/25/21 Unknown CSF Total Protein 34 mg/dL 06/25/21 Unknown CSF VDRL Nonreactive (Nonreactive) 06/25/21 Unknown Salicylates < 0.3 mg/dL (2.8-20.0) L 06/21/21 14:45 Urine Opiates Screen Negative 06/21/21 17:44 Urine Methadone Screen Negative 06/21/21 17:44 Acetaminophen 5.0 ug/mL (10.0-30.0) L 06/21/21 14:45 Ur Barbiturates Screen Negative 06/21/21 17:44 Ur Phencyclidine Scrn Negative 06/21/21 17:44 Ur Amphetamines Screen Negative 06/21/21 17:44 U Benzodiazepines Scrn Negative 06/21/21 17:44 Urine Cocaine Screen Negative 06/21/21 17:44 U Marijuana (THC) Screen Negative 06/21/21 17:44 Drugs of Abuse Note Disclamer 06/21/21 17:44 Plasma/Serum Alcohol < 0.01 % (0-0.07) 06/21/21 14:45 Coronavirus (PCR) Negative (Negative) 07/01/21 Unknown HSV I Specific Ab <0.90 Index (<0.90) 06/25/21 14:15 Blood Type O POSITIVE 06/21/21 14:45 Antibody Screen Negative 06/21/21 14:45 Mills/IV: Voiding Method Incontinent Active Medications - Current Medications Current Medications: Generic Name Dose Route Start Last Admin Trade Name Freq PRN Reason Stop Dose Admin Acetaminophen 650 mg 06/21/21 17:39 06/26/21 09:55 Acetaminophen 325 Mg Tab PO 650 mg Q6H PRN Administration Pain, Mild (1-3) Amlodipine Besylate 10 mg 06/28/21 18:00 07/02/21 09:47 Amlodipine 10 Mg Tab PO 10 mg QDAY JANAY Administration Aspirin 81 mg 06/28/21 18:00 07/02/21 09:47 Aspirin 81 Mg Tab Chew PO 81 mg QDAY JANAY Administration Atorvastatin Calcium 40 mg 06/21/21 22:00 07/01/21 22:00 Atorvastatin 40 Mg Tab PO 40 mg QHS JANAY Administration Bisacodyl 10 mg 06/21/21 17:39 Bisacodyl 10 Mg Rect Supp OH QDAY PRN Constipation Clonidine HCl 0.2 mg 06/27/21 12:00 06/27/21 13:20 Clonidine Tts 0.2 Mg/24 Hr Patch TD 0.2 mg Oshea JANAY Administration Clopidogrel Bisulfate 75 mg 06/28/21 18:00 07/02/21 09:48 Clopidogrel 75 Mg Tab PO 75 mg QDAY JANAY Administration Dexamethasone 4 mg 06/29/21 19:00 07/02/21 17:24 Dexamethasone 4 Mg/Ml Vial IV 4 mg Q6HR JANAY Administration Enoxaparin Sodium 40 mg 06/27/21 22:00 07/01/21 22:00 Enoxaparin 40 Mg/0.4 Ml Inj SUB-Q 40 mg QDAY@2200 [facility] Administration Protocol Hydralazine HCl 10 mg 06/27/21 09:07 06/28/21 10:03 Hydralazine 10 Mg Tab PO 10 mg Q4H PRN Administration hypertension Hydralazine HCl 100 mg 06/28/21 20:00 07/02/21 15:40 Hydralazine 100 Mg Tab PO 100 mg TID JANAY Administration Hydromorphone HCl 0.5 mg 06/21/21 17:39 Hydromorphone 1 Mg/1 Ml Inj IV Q23H PRN Pain , Severe (7-10) Thiamine HCl 100 mg/ Sodium 51 mls @ 100 mls/hr 06/29/21 10:00 07/02/21 09:48 Chloride IV 100 mls/hr QDAY [facility] Administration Insulin Human Isoph/Insulin Regular 12 unit 07/01/21 08:00 07/02/21 17:23 Insulin Nph/Regular 70/30 Inj SUB-Q 12 unit BIDDIAB [facility] Administration Insulin Human Lispro 0 unit 06/30/21 17:30 07/02/21 17:20 Insulin Lispro 100 Unit/Ml SUB-Q Not Given ACHS [facility] Protocol Levetiracetam 250 mg 06/28/21 10:00 07/02/21 09:48 Levetiracetam 500 Mg Tab PO 250 mg BID JANAY Administration Magnesium Hydroxide 30 ml 06/21/21 17:39 Magnesium Hydroxide (Mom) Oral Liqd Udc PO Q4H PRN Constipation Metoclopramide HCl 10 mg 06/21/21 17:39 Metoclopramide 10 Mg Tab PO Q6H PRN Nausea And Vomiting Metoprolol Succinate 25 mg 06/27/21 10:00 07/02/21 09:47 Metoprolol Succinate Xl 25 Mg Tab PO 25 mg QDAY [facility] Administration Nitroglycerin 0.4 mg 06/21/21 17:39 Nitroglycerin 0.4 Mg Tab Subl SL Q5M PRN Chest Pain Ondansetron HCl 4 mg 06/21/21 17:39 Ondansetron 4 Mg/2 Ml Inj IV Q8H PRN Nausea And Vomiting Oxycodone/Acetaminophen 1 tab 06/21/21 17:39 Oxycodone /Acetaminophen 5-325mg Tab PO Q16H PRN Pain, Moderate (4-6) Promethazine HCl 25 mg 06/21/21 17:39 Promethazine 25 Mg Rect Supp OH Q6H PRN Nausea And Vomiting Ranolazine 500 mg 06/28/21 18:00 07/02/21 09:47 Ranolazine Er 500 Mg Tab 12hr PO 500 mg QDAY JANAY Administration Sodium Chloride 10 ml 06/21/21 17:39 06/29/21 22:14 Sodium Chloride 0.9% 10 Ml Flush Syringe IV 10 ml PRN PRN Administration LINE FLUSH Tramadol HCl 50 mg 06/21/21 17:39 Tramadol 50 Mg Tab PO Q6H PRN Pain, Moderate (4-6) Nutrition/Malnutrition Assess - Dietary Evaluation Nutrition/Malnutrition Findings: Nutrition Notes Start: 06/28/21 13:09 Freq: Status: Active Protocol: Document 06/28/21 13:10 DANIELLA (Rec: 06/28/21 13:13 DANIELLA [id number]) Nutrition Notes Need for Assessment generated from: LOS Initial or Follow up Brief Note Current Diet Regular Height 5 ft 3 in Weight 78.6 kg [place] Body Weight (kg) 52.27 BMI 30.7 Weight Status Obese Subjective/Other Information Pt screened for LOS. She has consumed 82% of meals since admission. Percent of energy/protein needs met: 100% energy and pro Burn Absent Trauma Absent Current % PO Good (75-100%) Minimum of two criteria No Is patient on ventilator? No Is Patient Ambulatory and/or Out of Bed No REE-([facility]-confined to bed) 1636.296 Kcal/Kg value to use for calculation 16 Approximate Energy Requirements Using 1258 kcal/Kg Calculation Used for Recommendations Kcal/kg Additional Notes Pro needs 0.8-1g/kg adjBW: 52- 65g/day Fluid needs 1ml/kcal Nutrition Intervention Revisit per MD consult or patient Sign Off request:
--- NOTE | 2021-07-02 17:45 | Discharge Summary ---
Providers - Providers Date of Admission: 06/21/21 17:39 Date of discharge: 07/02/21 Attending physician: RAQUEL OCAMPO 06/21/21 Consult to Cardiac Rehabilitation [CONS] Routine Reason For Exam: Phase I 06/21/21 17:39 Consult to Case Management [CONS] Routine Services Needed at Discharge: Other Notified:: In a.m. Additional Physician Instructions: Assistance with discharge planning Occupational Therapy Evaluate and Treat [CONS] Routine Comment: Reason For Exam: Neuro deficits Physical Therapy Evaluation and Treat [CONS] Routine Comment: Reason For Exam: Neuro deficits 06/21/21 17:40 Speech Therapy Evaluation and Treat [CONS] Routine Reason For Exam: swallow eval 06/22/21 10:01 Consult to Physician [CONS] Routine Comment: Consulting Provider: VI QUAN Physician Instructions: Reason For Exam: possible cva 06/22/21 17:20 Consult to Physician [CONS] Routine Comment: Consulting Provider: MARÍA FISH Physician Instructions: Reason For Exam: elevated troponin 06/27/21 11:08 Consult to Mental Health [CONS] Routine Reason For Exam: encephalopathy 06/27/21 11:13 Consult to Physician [CONS] Routine Comment: Consulting Provider: MAC ESCALERA Physician Instructions: Reason For Exam: possible encephalitis 06/28/21 08:47 Consult to Physician [CONS] Routine Comment: Consulting Provider: VALENTE CHANEL II Physician Instructions: Reason For Exam: possible hydrocephalas Primary care physician: PLAN CONSULTANT Hospitalization Reason for admission: Acute metabolic encephalopathy/syncope loss of consc iousness Condition: Serious Procedures: Lumbar puncture Hospital course: 55 YO Female with Obesity, HTN presents to ED for evaluation of altered mental status. EMS was summoned to a truck park when the patient was found in her vehicle unresponsive. The patient was found by staff at the truck park unresponsive and covered in fecal material. Patient was admitted and had extensive neuro work-up as mentioned below, evaluated and being managed by neurologist and by neurosurgeon. Patient had multiple imaging studies. Neurosurgeon and neurology recommended transfer to [facility] for higher level of care Initiated transfer to [facility] 06/30/2021 for higher level of care and management by [facility] neurosurgical team. Patient was accepted by neurosurgeon Dr. Greenwood --Bilateral thalamic lesions on CT head and MRI brain ; There is concern for metabolic process vs thalamic glioma. Lumbar puncture/CSF analysis with normal findings[06/25/2021] Neurosurgeon Dr. Chanel and neurologist , recommended repeat CT head without contrast and MRI brain with contrast 06/30/2021 Neurosurgeon recommended IV dexamethasone 4 mg every [address] head without contrast 06/30/2021; evolving subacute ischemic infarct in both thalami no new acute parenchymal abnormality, minimal increase in lateral ventricular size suggesting some level of obstruction at the level of third ventricle due to mass-effect MRI brain with contrast 06/30/2021; overall these findings to be related to vascular event other etiologies such as fungal infection or viral and capsulitis might be considered, Low-grade neoplasm might be considered less likely Lumbar puncture may be of benefit [06/25/2021 LP and CSF analysis normal]. --Acute encephalopathy ; present on admission with possible CVA vs encephalitis VS hydrocephalus -pt. was found in her truck unresponsive with fecal and urinary incontince: Possible postictal state following seizure ? -drug screen is unremarkable -CT brain is remarkable for bilateral Hypo attenuation at thalami? -started on ASA and Lipitor -MRI brain is suggestive of bilateral thalamic lesion with wide DD: -s/p LP, CSF with normal findings -Started on Thiamine IV - EEG w/o any epileptic wave, neuro following 06/29/2021 MRI Bilateral T2 hyperintense lesions of the bilateral thalami. Management per neurosurgery and neurology 06/30/[address] head without contrast, MRI with contrast per neurosurgery Report reviewed, as mentioned above. Neurology neurosurgery recommended transfer to [facility] pending availability of bed --Seizure cannot be excluded[per neurology] Seizure precaution, neurology evaluated, 250 mg of Keppra twice a day EEG no seizure activity, as needed Ativan, neuro work-up reviewed --Elevated troponin/NSTEMI type 2 : Cardiology evaluated the patient, Stress test 6 months ago was negative Patient has history of coronary artery disease s/p two-vessel coronary artery stenting 4 years ago Continue medical management --Dyslipidemia: Low-cholesterol diet, statin --Syncope: Syncope work-up reviewed CT scan showing bilateral thalamic infarcts. Extensive neuro evaluation as mentioned above Fall precautions, PT OT, treat the underlying [employer] causes Echo EF 45%, but negative contrast bubble study. --Hyperglycemia/type 2 diabetes mellitus High sugars partly due to IV steroids Accu-Chek sliding scale coverage ADA diet Long-acting insulin as neededHemoglobin A1c HbA1c 7.6% Diabetic diet education, diabetes disease education prior to discharge and patient is stable --DVT prophylaxis: subcu Lovenox Disposition; management per neurosurgery , neurology Accepted by [facility] neurosurgical team for transfer pending bed availability We will closely monitor patient and adjust the management as needed Transitions Rn Care Coordinator recommendations noted and appreciated Brief history and daily hospital course: 55 YO Female with Obesity, HTN presents to ED for evaluation of altered mental status. EMS was summoned to a truck park when the patient was found in her vehicle unresponsive. The patient was found by staff at the truck park unresponsive and covered in fecal material. Patient had extensive neuro work-up as mentioned below, evaluated by neurologist and subsequently by neurosurgeon. Patient had multiple imaging studies Today 06/30/[address] head without contrast and MRI brain with contrast. Findings are as mentioned below. Will initiate transfer to [facility] for higher level care. 06/23: Remains lathergic and confused. drug screen is unremarkable, CT brain is remarkable for bilateral Hypo attenuation at thalami? cont on ASA and Lipitor MRI brain is pending, Started on Thiamine IV. EEG today is remarkable for mild diffuse slowing ,possibility of post ictal and or drug effect can not be excluded cont Seizure precaution and Keppra to 250 mg bid 06/24: Remains lethargic, MRI brain pending, continue Keppra twice daily. Continue to follow clinically with supportive care 06/25: MRI brain is suggestive of bilateral thalamic lesion with wide DD. s/p LP done today, protein and Glucose are normal with normal open pressure. Gram stain and Cs are pending , cell count is pending. Per neuro, if CSF study normal need to consider Neurosurgery opinion to r/o Hydrocephalus 06/26: patient was agitated earlier, placed on restraint. Cont iv fluid, cont AED. follow CSF study. has no fever or elevated white count, covid test is negative 06/27: CSF study normal, HSV PCR pending, mental status improved - tolerating diet but very confused. Will consult ID for possible encephalitis, and also NS for possible hydrocephalus. 06/28: Mental status i,proving, more alert but remains confused. will monitor off restraint, d/c iv fluid as tolerating diet. discussed with NS and dr jim will see her. ID signed off as no infectious source so far, CSF study negative. Plan to repeat MRI brain. 06/29; repeat MRI brain scheduled for today. We will follow the findings and adjust the management as needed in consultation with neurology and neurosurgery 06/30; MRI brain with contrast, CT head without contrast ordered last evening where not done, will follow with radiology I will initiate the transfer process to [facility] to be evaluated by neurosurgical team 06/30/2021 neurosurgeon recommended transfer to [facility] neurosurgical team for higher level of care [facility] neurosurgeon /accepted the patient pending availability of the bed,. I discussed patient's condition and the treatment and transfer plan with the patient's brother Mr. Saulo Watkins 07/01/2021; patient is alert and awake responding to simple verbal commands, confused Continue current management per neurology and neurosurgery, ready to be transferred to [facility]. I called the [facility] transfer center, still waiting for bed availability [facility] neurosurgeon /accepted the patient pending availability of the bed,. Disposition: SHORT TERM HOSPITAL Final Discharge Diagnosis (Prints w/discharge instructions): Acute metabolic encephalopathy. Bilateral thalamic lesions on CT head and MRI brain. Possible metabolic process versus thalamic glioma seizures Core Measure Documentation - Palliative Care Palliative Care/ Comfort Measures: Not Applicable - Core Measures Any of the following diagnoses?: none Exam - Constitutional Vitals: Temp Pulse Resp BP Pulse Ox 97.6 F 53 L 16 118/83 98 07/02/21 16:08 07/02/21 11:20 07/02/21 16:08 07/02/21 16:08 07/02/21 11:20 General appearance: Present: no acute distress, well-nourished, obese, other (Confused) - EENT Eyes: Present: PERRL, EOM intact - Neck Neck: Present: supple, normal ROM - Respiratory Respiratory effort: normal Respiratory: bilateral: diminished, negative: rales, rhonchi, wheezing - Cardiovascular Rhythm: regular Heart Sounds: Present: S1 & S2 - Extremities Extremities: no ischemia, No edema - Abdominal General gastrointestinal: Present: soft, non-tender, non-distended, normal bowel sounds - Integumentary Integumentary: Present: clear, warm - Musculoskeletal Musculoskeletal: generalized weakness - Psychiatric Psychiatric: other (Confused) - Neurologic Neurologic: moves all extremities (Residual weakness) Plan Activity: advance as tolerated, fall precautions Diet: other (Cardiac diet) Additional Instructions: Patient is being discharged to [facility] to the neurosurgical service for further evaluation and management. Patient was accepted awaiting bed availability Follow up with: PRIMARY CARE, [Primary Care Provider] - 3-5 Days
[2021-07-02] MEDS: ENOXAPARIN 40 MG/0.4 ML INJ SUB-Q SCH (22:06)
[2021-07-03] MEDS: dexAMETHasone 4 MG/ML VIAL IV SCH ×4 (05:57→17:44)
--- NOTE | 2021-07-03 08:36 | Progress Note ---
Assessment and Plan Assessment and plan: 55 YO Female with Obesity, HTN presents to ED for evaluation of altered mental status. EMS was summoned to a truck park when the patient was found in her vehicle unresponsive. The patient was found by staff at the truck park unresponsive and covered in fecal material. Patient was admitted and had extensive neuro work-up as mentioned below, evaluated and being managed by neurologist and by neurosurgeon. Patient had multiple imaging studies. Neurosurgeon and neurology recommended transfer to [facility] for higher level of care Initiated transfer to [facility] 06/30/2021 for higher level of care and management by [facility]surgical team. Patient was accepted by neurosurgeon Dr. Greenwood pending availability of bed. Today 07/03/2021; patient is more alert and awake and oriented x3, responding appropriately, no evidence of confusion --Bilateral thalamic lesions on CT head and MRI brain ; There is concern for metabolic process vs thalamic glioma. Lumbar puncture/CSF analysis with normal findings[06/25/2021] Neurosurgeon Dr. Watts and neurologist , recommended repeat CT head without contrast and MRI brain with contrast 06/30/2021 Neurosurgeon recommended IV dexamethasone 4 mg every 6 hours , Responding appropriately CT head without contrast 06/30/2021; evolving subacute ischemic infarct in both thalami no new acute parenchymal abnormality, minimal increase in lateral ventricular size suggesting some level of obstruction at the level of third ventricle due to mass-effect MRI brain with contrast 06/30/2021; overall these findings to be related to vascular event other etiologies such as fungal infection or viral and capsulitis might be considered, Low-grade neoplasm might be considered less likely Lumbar puncture may be of benefit [06/25/2021 LP and CSF analysis normal]. --Acute encephalopathy ; present on admission with possible CVA vs encephalitis VS hydrocephalus -pt. was found in her truck unresponsive with fecal and urinary incontince: Possible postictal state following seizure ? -drug screen is unremarkable -CT brain is remarkable for bilateral Hypo attenuation at thalami? -started on ASA and Lipitor -MRI brain is suggestive of bilateral thalamic lesion with wide DD: -s/p LP, CSF with normal findings -Started on Thiamine IV - EEG w/o any epileptic wave, neuro following 06/29/2021 MRI Bilateral T2 hyperintense lesions of the bilateral thalami. Management per neurosurgery and neurology 06/30/[address] head without contrast, MRI with contrast per neurosurgery Report reviewed, as mentioned above. Neu[facility] neurosurgery [facility] availability of bed --Seizure cannot be excluded[per neurology] Seizure precaution, neurology evaluated, 250 mg of Keppra twice a day EEG no seizure activity, as needed Ativan, neuro work-up reviewed --Elevated troponin/NSTEMI type 2 : Cardiology evaluated the patient, Stress test 6 months ago was negative Patient has history of coronary artery disease s/p two-vessel coronary artery stenting 4 years ago Continue medical management --Bradycardia; Hold clonidine and metoprolol, monitor closely -Dyslipidemia: Low-cholesterol diet, statin --Syncope: Syncope work-up reviewed CT scan showing bilateral thalamic infarcts. Extensive neuro evaluation as mentioned above Fall precautions, PT OT, treat the underlying BASKET BRAIDER causes Echo EF 45%, but negative contrast bubble study. --Hyperglycemia/type 2 diabetes mellitus High sugars partly due to IV steroids Accu-Chek sliding scale coverage ADA diet Long-acting insulin as neededHemoglobin A1c HbA1c 7.6% Diabetic diet education, diabetes disease education prior to discharge and patient is stable --DVT prophylaxis: subcu Lovenox Disposition; management per neurosurgery , neurology Accepted by [facility] team for transfer pending bed availability We will closely monitor patient and adjust the management as needed Health Inspector Food recommendations noted and appreciated Brief history and daily hospital course: 55 YO Female with Obesity, HTN presents to ED for evaluation of altered mental status. EMS was summoned to a truck park when the patient was found in her vehicle unresponsive. The patient was found by staff at the truck park unresponsive and covered in fecal material. Patient had extensive neuro work-up as mentioned below, evaluated by neurologist and subsequently by neurosurgeon. Patient had multiple imaging studies Today 06/30/[address] head without contrast and MRI brain with contrast. Findings are as mentioned below. Will initiate transfer to [facility] for higher level care. 06/23: Remains lathergic and confused. drug screen is unremarkable, CT brain is remarkable for bilateral Hypo attenuation at thalami? cont on ASA and Lipitor MRI brain is pending, Started on Thiamine IV. EEG today is remarkable for mild diffuse slowing ,possibility of post ictal and or drug effect can not be excluded cont Seizure precaution and Keppra to 250 mg bid 06/24: Remains lethargic, MRI brain pending, continue Keppra twice daily. Continue to follow clinically with supportive care 06/25: MRI brain is suggestive of bilateral thalamic lesion with wide DD. s/p LP done today, protein and Glucose are normal with normal open pressure. Gram stain and Cs are pending , cell count is pending. Per neuro, if CSF study normal need to consider Neurosurgery opinion to r/o Hydrocephalus 06/26: patient was agitated earlier, placed on restraint. Cont iv fluid, cont AED. follow CSF study. has no fever or elevated white count, covid test is negative 06/27: CSF study normal, HSV PCR pending, mental status improved - tolerating diet but very confused. Will consult ID for possible encephalitis, and also NS for possible hydrocephalus. 06/28: Mental status i,proving, more alert but remains confused. will monitor off restraint, d/c iv fluid as tolerating diet. discussed with NS and dr jim will see her. ID signed off as no infectious source so far, CSF study negative. Plan to repeat MRI brain. 06/29; repeat MRI brain scheduled for today. We will follow the findings and adjust the management as needed in consultation with neurology and neurosurgery 06/30; MRI brain with contrast, CT head without contrast ordered last evening where not done, will follow with radiology I will initiate the transfer process to [facility] to be evaluated by neurosurgical team 06/30/2021 neurosurgeon recommended transfer to [facility] team for higher level of care [facility] neurosurgeon /accepted the patient pending availability of the bed,. I discussed patient's condition and the treatment and transfer plan with the patient's brother Mr. Saulo Watkins 07/01/2021; patient is alert and awake responding to simple verbal commands, confused Continue current management per neurology and neurosurgery, ready to be transferred to [facility]. I called the [facility] transfer center, still waiting for bed availability [facility] neurosurgeon /accepted the patient pending availability of the bed,. 07/02; patient was accepted by [facility] and [facility] neurosurgeon Dr. Stout Pending availability of the bed, neurologist and neurosurgery following 07/03; Continue current management, bradycardia, will DC clonidine and metoprolol and closely monitor, cardiology following, patient is more alert, awake and oriented today responding appropriately no con fusion Not in acute distress, patient's brother at the bedside Mr. Saulo Vega, I discussed in detail patient's condition significant improvement Treatment plan, the status of transfer to [facility] pending availability of the bed, answered all his questions Pending transfer to [facility], patient is hemodynamically stable, COVID PCR test negative History Interval history: I have seen and examined the patient at the bedside Patient's chart and medications reviewed Patient is more alert and awake oriented x3 Patient's brother Mr. Saulo Vega is at the bedside No evidence of confusion No new complaints Hospitalist Physical - Constitutional Vitals: Temp Pulse Resp BP Pulse Ox 97.9 F 48 L 18 133/77 100 07/03/21 08:05 07/03/21 08:05 07/03/21 08:03 07/03/21 08:05 07/03/21 08:05 General appearance: Present: no acute distress, obese, other (Mildly confused, follows simple verbal commands .) - EENT Eyes: Present: PERRL, EOM intact - Neck Neck: Present: supple, normal ROM - Respiratory Respiratory effort: normal Respiratory: bilateral: diminished, negative: rales, rhonchi, wheezing - Cardiovascular Rhythm: regular Heart Sounds: Present: S1 & S2 - Extremities Extremities: no ischemia, No edema - Abdominal General gastrointestinal: soft, non-tender, non-distended, normal bowel sounds - Integumentary Integumentary: Present: clear, warm - Psychiatric Psychiatric: appropriate mood/affect, cooperative - Neurologic Neurologic: CNII-XII intact, moves all extremities HEART Score - HEART Score Troponin: Troponin T 0.312 ng/mL (0.00-0.029) H* 06/23/21 12:23 Results - Labs CBC & Chem 7: 06/28/21 09:01 06/28/21 09:02 Labs: Laboratory Last Values WBC 7.8 K/mm3 (4.5-11.0) 06/28/21 09:01 RBC 3.63 M/mm3 (3.65-5.03) L 06/28/21 09:01 Hgb 11.8 gm/dl (10.1-14.3) 06/28/21 09:01 Hct 34.4 % (30.3-42.9) 06/28/21 09:01 MCV 95 fl (79-97) 06/28/21 09:01 MCH 32 pg (28-32) 06/28/21 09:01 MCHC 34 % (30-34) 06/28/21 09:01 RDW 13.5 % (13.2-15.2) 06/28/21 09:01 Plt Count 262 K/mm3 (140-440) 06/28/21 09:01 Lymph % (Auto) 22.6 % (13.4-35.0) 06/26/21 07:11 [place] % (Auto) 5.8 % (0.0-7.3) 06/26/21 07:11 Eos % (Auto) 0.4 % (0.0-4.3) 06/26/21 07:11 Baso % (Auto) 0.5 % (0.0-1.8) 06/26/21 07:11 Lymph # (Auto) 2.3 K/mm3 (1.2-5.4) 06/26/21 07:11 [place] # (Auto) 0.6 K/mm3 (0.0-0.8) 06/26/21 07:11 Eos # (Auto) 0.0 K/mm3 (0.0-0.4) 06/26/21 07:11 Baso # (Auto) 0.1 K/mm3 (0.0-0.1) 06/26/21 07:11 Seg Neutrophils % 70.7 % (40.0-70.0) H 06/26/21 07:11 Seg Neutrophils # 7.2 K/mm3 (1.8-7.7) 06/26/21 07:11 ESR 40 mm/Hr (0-20) 06/30/21 12:34 PT 12.7 Sec. (12.2-14.9) 06/21/21 14:45 INR 0.86 (0.87-1.13) L 06/21/21 14:45 APTT 24.1 Sec. (24.2-36.6) L 06/21/21 14:45 D-Dimer 815.68 ng/mlDDU (0-234) H 06/21/21 14:45 Sodium 142 mmol/L (137-145) 06/28/21 09:02 Potassium 3.7 mmol/L (3.6-5.0) 06/28/21 09:02 Chloride 105.9 mmol/L (98-107) 06/28/21 09:02 Carbon Dioxide 26 mmol/L (22-30) 06/28/21 09:02 Anion Gap 14 mmol/L 06/28/21 09:02 BUN 5 mg/dL (7-17) L 06/28/21 09:02 Creatinine 0.7 mg/dL (0.6-1.2) 06/28/21 09:02 Estimated GFR > 60 ml/min 06/28/21 09:02 BUN/Creatinine Ratio 7 % 06/28/21 09:02 Glucose 208 mg/dL (65-100) H 06/28/21 09:02 POC Glucose 154 mg/dL (70-105) H 07/03/21 08:04 Hemoglobin A1c 7.6 % (4-6) H 07/01/21 05:15 Lactic Acid < 0.20 mmol/L (0.7-2.0) L 06/21/21 14:45 Calcium 9.1 mg/dL (8.4-10.2) 06/28/21 09:02 Total Bilirubin 0.50 mg/dL (0.1-1.2) 06/21/21 14:45 Direct Bilirubin < 0.2 mg/dL (0-0.2) 06/21/21 14:45 Indirect Bilirubin 0.3 mg/dL 06/21/21 14:45 AST 21 units/L (5-40) 06/21/21 14:45 ALT 20 units/L (7-56) 06/21/21 14:45 Alkaline Phosphatase 135 units/L (35-129) H 06/21/21 14:45 Ammonia 19.0 umol/L (25-60) L 06/21/21 14:45 Total Creatine Kinase 173 units/L (30-135) H 06/21/21 14:45 Troponin T 0.312 ng/mL (0.00-0.029) H* 06/23/21 12:23 Total Protein 7.6 g/dL (6.3-8.2) 06/21/21 14:45 Albumin 4.1 g/dL (3.9-5) 06/21/21 14:45 Albumin/Globulin Ratio 1.2 % 06/21/21 14:45 Triglycerides 95 mg/dL (2-149) 06/21/21 14:45 Cholesterol 286 mg/dL (50-199) H 06/21/21 14:45 LDL Cholesterol Direct 178 mg/dL (50-130) H 06/21/21 14:45 HDL Cholesterol 83 mg/dL (40-59) H 06/21/21 14:45 Cholesterol/HDL Ratio 3.44 % 06/21/21 14:45 TSH 0.326 mlU/mL (0.270-4.200) 06/21/21 14:45 Urine Color Yellow (Yellow) 06/21/21 17:44 Urine Turbidity Clear (Clear) 06/21/21 17:44 Urine pH 7.0 (5.0-7.0) 06/21/21 17:44 Ur Specific [place] 1.020 (1.003-1.030) 06/21/21 17:44 Urine Protein <15 mg/dl mg/dL (Negative) 06/21/21 17:44 Urine Glucose (UA) Negative mg/dL (Negative) 06/21/21 17:44 Urine Ketones Negative mg/dL (Negative) 06/21/21 17:44 Urine Blood Small (Negative) A 06/21/21 17:44 Urine Nitrite Negative (Negative) 06/21/21 17:44 Urine Bilirubin Negative (Negative) 06/21/21 17:44 Urine Urobilinogen 1.0 mg/dL (<2.0) 06/21/21 17:44 Ur Leukocyte Esterase Negative (Negative) 06/21/21 17:44 Urine WBC (Auto) < 1.0 /HPF (0.0-6.0) 06/21/21 17:44 Urine RBC (Auto) < 1.0 /HPF (0.0-6.0) 06/21/21 17:44 CSF Appearance Clear 06/25/21 Unknown CSF Color Colorless 06/25/21 Unknown CSF WBC 2 /mm3 (1-10) 06/25/21 Unknown CSF RBC 1 /mm3 (0-0) 06/25/21 Unknown CSF Seg Neutrophils 5.3 % (0-6) 06/25/21 Unknown CSF Lymphocytes % 57.9 % (40-80) 06/25/21 Unknown CSF Reactive Lymphs Not Reportable 06/25/21 Unknown CSF Monocytes % 36.8 % (15-45) 06/25/21 Unknown CSF Eosinophils % Not Reportable 06/25/21 Unknown CSF Basophils Not Reportable 06/25/21 Unknown CSF Pathologist Review C 06/25/21 Unknown CSF Glucose 117 mg/dL 06/25/21 Unknown CSF Total Protein 34 mg/dL 06/25/21 Unknown CSF VDRL Nonreactive (Nonreactive) 06/25/21 Unknown Salicylates < 0.3 mg/dL (2.8-20.0) L 06/21/21 14:45 Urine Opiates Screen Negative 06/21/21 17:44 Urine Methadone Screen Negative 06/21/21 17:44 Acetaminophen 5.0 ug/mL (10.0-30.0) L 06/21/21 14:45 Ur Barbiturates Screen Negative 06/21/21 17:44 Ur Phencyclidine Scrn Negative 06/21/21 17:44 Ur Amphetamines Screen Negative 06/21/21 17:44 U Benzodiazepines Scrn Negative 06/21/21 17:44 Urine Cocaine Screen Negative 06/21/21 17:44 U Marijuana (THC) Screen Negative 06/21/21 17:44 Drugs of Abuse Note Disclamer 06/21/21 17:44 Plasma/Serum Alcohol < 0.01 % (0-0.07) 06/21/21 14:45 Coronavirus (PCR) Negative (Negative) 07/01/21 Unknown HSV IgM Ab Screen Negative (Negative) 06/25/21 14:15 HSV I Specific Ab <0.90 Index (<0.90) 06/25/21 14:15 Blood Type O POSITIVE 06/21/21 14:45 Antibody Screen Negative 06/21/21 14:45 [place]/IV: Voiding Method Incontinent Active Medications - Current Medications Current Medications: Generic Name Dose Route Start Last Admin Trade Name Freq PRN Reason Stop Dose Admin Acetaminophen 650 mg 06/21/21 17:39 06/26/21 09:55 Acetaminophen 325 Mg Tab PO 650 mg Q6H PRN Administration Pain, Mild (1-3) Amlodipine Besylate 10 mg 06/28/21 18:00 07/02/21 09:47 Amlodipine 10 Mg Tab PO 10 mg QDAY JANAY Administration Aspirin 81 mg 06/28/21 18:00 07/02/21 09:47 Aspirin 81 Mg Tab Chew PO 81 mg QDAY JANAY Administration Atorvastatin Calcium 40 mg 06/21/21 22:00 07/02/21 22:07 Atorvastatin 40 Mg Tab PO 40 mg QHS JANAY Administration Bisacodyl 10 mg 06/21/21 17:39 Bisacodyl 10 Mg Rect Supp NE QDAY PRN Constipation Clonidine HCl 0.2 mg 06/27/21 12:00 06/27/21 13:20 Clonidine Tts 0.2 Mg/24 Hr Patch TD 0.2 mg Oshea JANAY Administration Clopidogrel Bisulfate 75 mg 06/28/21 18:00 07/02/21 09:48 Clopidogrel 75 Mg Tab PO 75 mg QDAY JANAY Administration Dexamethasone 4 mg 06/29/21 19:00 07/03/21 05:57 Dexamethasone 4 Mg/Ml Vial IV 4 mg Q6HR AJNAY Administration Enoxaparin Sodium 40 mg 06/27/21 22:00 07/02/21 22:06 Enoxaparin 40 Mg/0.4 Ml Inj SUB-Q 40 mg QDAY@2200 JANAY Administration Protocol Hydralazine HCl 10 mg 06/27/21 09:07 06/28/21 10:03 Hydralazine 10 Mg Tab PO 10 mg Q4H PRN Administration hypertension Hydralazine HCl 100 mg 06/28/21 20:00 07/02/21 22:07 Hydralazine 100 Mg Tab PO 100 mg TID JANAY Administration Hydromorphone HCl 0.5 mg 06/21/21 17:39 Hydromorphone 1 Mg/1 Ml Inj IV Q23H PRN Pain , Severe (7-10) Thiamine HCl 100 mg/ Sodium 51 mls @ 100 mls/hr 06/29/21 10:00 07/02/21 09:48 Chloride IV 100 mls/hr QDAY JANAY Administration Insulin Human Isoph/Insulin Regular 12 unit 07/01/21 08:00 07/02/21 17:23 Insulin Nph/Regular 70/30 Inj SUB-Q 12 unit BIDDIAB JANAY Administration Insulin Human Lispro 0 unit 06/30/21 17:30 07/02/21 22:08 Insulin Lispro 100 Unit/Ml SUB-Q 6 unit ACHS JANAY Administration Protocol Levetiracetam 250 mg 06/28/21 10:00 07/02/21 22:07 Levetiracetam 500 Mg Tab PO 250 mg BID JANAY Administration Magnesium Hydroxide 30 ml 06/21/21 17:39 Magnesium Hydroxide (Mom) Oral Liqd Udc PO Q4H PRN Constipation Metoclopramide HCl 10 mg 06/21/21 17:39 Metoclopramide 10 Mg Tab PO Q6H PRN Nausea And Vomiting Metoprolol Succinate 25 mg 06/27/21 10:00 07/02/21 09:47 Metoprolol Succinate Xl 25 Mg Tab PO 25 mg QDAY JANAY Administration Nitroglycerin 0.4 mg 06/21/21 17:39 Nitroglycerin 0.4 Mg Tab Subl SL Q5M PRN Chest Pain Ondansetron HCl 4 mg 06/21/21 17:39 Ondansetron 4 Mg/2 Ml Inj IV Q8H PRN Nausea And Vomiting Oxycodone/Acetaminophen 1 tab 06/21/21 17:39 Oxycodone /Acetaminophen 5-325mg Tab PO Q16H PRN Pain, Moderate (4-6) Promethazine HCl 25 mg 06/21/21 17:39 Promethazine 25 Mg Rect Supp NE Q6H PRN Nausea And Vomiting Ranolazine 500 mg 06/28/21 18:00 07/02/21 09:47 Ranolazine Er 500 Mg Tab 12hr PO 500 mg QDAY JANAY Administration Sodium Chloride 10 ml 06/21/21 17:39 06/29/21 22:14 Sodium Chloride 0.9% 10 Ml Flush Syringe IV 10 ml PRN PRN Administration LINE FLUSH Tramadol HCl 50 mg 06/21/21 17:39 Tramadol 50 Mg Tab PO Q6H PRN Pain, Moderate (4-6) Nutrition/Malnutrition Assess - Dietary Evaluation Nutrition/Malnutrition Findings: Nutrition Notes Start: 06/28/21 13:09 Freq: Status: Active Protocol: Document 06/28/21 13:10 DANIELLA (Rec: 06/28/21 13:13 DANIELLA [id number]) Nutrition Notes Need for Assessment generated from: LOS Initial or Follow up Brief Note Current Diet Regular Height 5 ft 3 in Weight 78.6 kg [place] Body Weight (kg) 52.27 BMI 30.7 Weight Status Obese Subjective/Other Information Pt screened for LOS. She has consumed 82% of meals since admission. Percent of energy/protein needs met: 100% energy and pro Burn Absent Trauma Absent Current % PO Good (75-100%) Minimum of two criteria No Is patient on ventilator? No Is Patient Ambulatory and/or Out of Bed No REE-([facility]-confined to bed) 1636.296 Kcal/Kg value to use for calculation 16 Approximate Energy Requirements Using 1258 kcal/Kg Calculation Used for Recommendations Kcal/kg Additional Notes Pro needs 0.8-1g/kg adjBW: 52- 65g/day Fluid needs 1ml/kcal Nutrition Intervention Revisit per MD consult or patient Sign Off request:
[2021-07-03] MEDS: hydrALAZINE 100 MG TAB PO SCH ×3 (08:54→21:34)
[2021-07-03] MEDS: THIAMINE 100 MG in SODIUM CHLORIDE 0.9% 50 ML IV SCH (09:00)
[2021-07-03] MEDS: RANOLAZINE ER 500 MG TAB 12HR PO SCH (09:00)
[2021-07-03] MEDS: METOPROLOL SUCCINATE XL 25 MG TAB PO SCH (09:00)
[2021-07-03] MEDS: levETIRAcetam 500 MG TAB PO SCH ×2 (09:00→21:34)
[2021-07-03] MEDS: CLOPIDOGREL 75 MG TAB PO SCH (09:01)
[2021-07-03] MEDS: INSULIN LISPRO 100 UNIT/ML SUB-Q SCH ×4 (09:02→21:35)
[2021-07-03] MEDS: ASPIRIN 81 MG TAB CHEW PO SCH (09:02)
[2021-07-03] MEDS: INSULIN NPH/REGULAR 70/30 INJ SUB-Q SCH ×2 (09:02→17:54)
[2021-07-03] MEDS: amLODIPine 10 MG TAB PO SCH (12:05)
--- NOTE | 2021-07-03 12:49 | Progress Note ---
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 Further neuro assessment and management in progress. Echocardiogram shows left ventricular ejection fraction of 45%, but negative contrast bubble study. Conservative cardiac management. (2) Coronary artery disease Current Visit: Yes Status: Acute Plan to address problem: Patient has a history of complex coronary artery disease with two-vessel coronary stenting 4 years ago at a hospital in [place]. Most recent follow-up stress test 6 months ago was negative, patient was reported to have exercised for 6 minutes of Parveen protocol. We will continue guideline directed medical therapy for coronary artery disease, and continue follow-up as indicated. Further cardiac evaluation and management will depend on clinical course. Subjective Date of service: 07/03/21 Principal diagnosis: Altered mental status Interval history: Patient is comfortable, no acute distress, no new cardiac events reported. Awaiting planned transfer to [facility] neurosurgery service. Objective Vital Signs Temp Pulse Pulse Resp BP Pulse Ox 07/03/21 12:05 129/70 07/03/21 12:00 50 L 18 96 07/03/21 11:36 98.3 F 82 129/70 100 07/03/21 08:05 97.9 F 48 L 133/77 100 07/03/21 08:03 97.5 F L 47 L 18 135/79 100 07/03/21 05:00 98.0 F 16 174/58 07/03/21 03:46 97.8 F 60 18 139/85 100 07/03/21 00:00 97.9 F 69 16 114/63 98 07/02/21 23:11 98 07/02/21 20:13 98.0 F 79 16 110/69 99 07/02/21 16:08 97.6 F 16 118/83 - Physical Examination General: No Apparent Distress, Other (Mildly confused) HEENT: Positive: PERRL Neck: Positive: neck supple Cardiac: Positive: Reg Rate and Rhythm Lungs: Positive: Decreased Breath Sounds Neuro: Positive: Grossly Intact Abdomen: Positive: Soft Skin: Positive: Clear Extremities: Absent: edema
[2021-07-03 19:38] VITALS: BP 128/80
[2021-07-03] MEDS: ENOXAPARIN 40 MG/0.4 ML INJ SUB-Q SCH (21:34)
[2021-07-04] MEDS ORDERED: THIAMINE 100 MG TAB PO SCH (10:00)
== END 2021-07-03 22:12 | disposition short-term general hospital (02) | DRG 70 ==
LOC: ED 13:17 → 4A 17:39
PROVIDERS: ADMIT Internal Medicine; ATTEND Internal Medicine
PROC: 009U3ZX Drainage of Spinal Canal, Percutaneous Approach, Diagnostic (ICD-10-PCS; principal; 2021-06-25)
DX: G93.40 Encephalopathy, unspecified (principal); I21.A1 Myocardial infarction type 2; E66.2 Morbid (severe) obesity with alveolar hypoventilation; I42.9 Cardiomyopathy, unspecified; I10 Essential (primary) hypertension; I25.10 Atherosclerotic heart disease of native coronary artery without angina pectoris; E11.65 Type 2 diabetes mellitus with hyperglycemia; E78.5 Hyperlipidemia, unspecified; Z20.822 Contact with and (suspected) exposure to COVID-19; Z68.30 Body mass index [BMI] 30.0-30.9, adult
CPT/HCPCS: 36415; 62270; 62328; 70450; 70546; 70551; 70552; 70553; 71045; 80048; 80061; 80076; 80307; 80320; 81001; 82140; 82550; 82947; 82962; 83036; 83519; 84160; 84443; 84484; 85025; 85027; 85379; 85610; 85652; 85730; 86403; 86592; 86695; 86850; 86900; 86901; 87040; 87116; 89051; 93005; 93010; 93306; 93880; 94760; 95819; 97129; 97130; G0378; J3490; J7060; Q0162; Q0177; Q9967; A9575; C8929; G0480; J1100; J1650; J1815; J1953; J3411; J7030; J7042; U0003